=== PATIENT | female | born 1950 | race Caucasian/White ===

== ENCOUNTER 2017-05-19 19:07 | Inpatient (IN) | payer MEDICARE, OTHER ==
[~2017-05-19] VITALS: Ht 172.7 cm; Wt 147.2 kg
[2017-05-19 19:17] VITALS: PULSE 141; RESP 20; TEMP 98.7; O2SAT 93
[2017-05-19 19:26] VITALS: BP 145/75; PULSE 147; RESP 20; O2SAT 92
[2017-05-19] MEDS ORDERED: HUMALOG SQ (19:38)
[2017-05-19] MEDS ORDERED: POTA10CA PO (19:38)
[2017-05-19] MEDS ORDERED: METO25TA3 PO (19:38)
[2017-05-19] MEDS ORDERED: SYMB160A INH (19:38)
[2017-05-19] MEDS ORDERED: SIMV40TA PO (19:38)
[2017-05-19] MEDS ORDERED: OXYC1TAB63 PO (19:38)
[2017-05-19] MEDS ORDERED: GABA100C4 PO (19:38)
[2017-05-19] MEDS ORDERED: FERR325T18 PO (19:38)
[2017-05-19] MEDS ORDERED: VENTAER INH (19:38)
[2017-05-19] MEDS ORDERED: WARF-22 PO (19:38)
[2017-05-19] MEDS ORDERED: SERT-132 PO (19:38)
[2017-05-19] MEDS ORDERED: RANI150T PO (19:38)
[2017-05-19] MEDS ORDERED: WARF4TAB51 PO (19:38)
[2017-05-19] MEDS ORDERED: DOCU100T9 PO (19:38)
[2017-05-19] MEDS ORDERED: SERT-129 PO (19:38)
[2017-05-19] MEDS ORDERED: LANTINJ SQ (19:38)
[2017-05-19] MEDS ORDERED: FURO40TA PO (19:38)
[2017-05-19] MEDS ORDERED: DILTIAZEM HCL 25 MG/5 ML VIAL IV PUSH ONE (19:45)
[2017-05-19] MEDS ORDERED: methylPREDNISolone SOD SUCC 125 MG/2 ML VIAL IV PUSH ONE (19:45)
[2017-05-19] MEDS ORDERED: SODIUM CHLORIDE 0.9% FLUSH 10 ML FLUSH IV FLUSH PRN (19:45)
[2017-05-19] MEDS ORDERED: SODIUM CHLORIDE 0.9% FLUSH 10 ML FLUSH IVF PRN (19:45)
--- NOTE | 2017-05-19 19:45 | PD ---
HPI Chief Complaint: Chest Pain Time Seen by Provider: 19:22 Travel History International Travel<30 days: No Contact w/Intl Traveler<30days: No Traveled to known affect area: No History of Present Illness HPI The patient is a 67 year old female who presents to the [facility] emergency department with a history of cough and congestion that began 3 days ago. She reports that the cough has been productive of sputum, however she has not looked at the color. The patient reports having a history of COPD, congestive heart failure, pneumonia, and atrial fibrillation. The patient is currently residing at home and has a primary care physician that comes out to her house to visit her. The patient reports that she also has chronic lymphedema and uses a lymphedema pump for this, however has not been functional and her lower extremity edema has recently increased. She reports having nausea without vomiting or diarrhea. Her last bowel movement was yesterday. She denies having any abdominal pain associated with this, however she does report nausea and decreased p.o. intake. She reports that over the last 3 days the only thing that she has had to eat is a cup of soup and she has been drinking water. She reports that she last checked her blood sugar yesterday, however she does not know what it was. She did not take any of her medications today including her insulin. She denies having any known fevers. She reports that she quit smoking in the 80s. She denies having any chest pain or chest pressure, other than a left lateral chest wall pain since Friday when she had a coughing spell. She reports that the pain only occurs with certain movements. She reports that it is sharp in character. The patient has a history of atrial fibrillation and is normally on metoprolol, however she did not take it today. Upon ambulance services arrival the patient was noted to have a heart rate in the 140s. The patient was noted to have O2 saturations in the upper 80s on room air. The patient was placed on a nonrebreather mask and transported to this facility after IV access was obtained and the patient was given Cardizem 20 mg IV push. The patient on arrival has a heart rate in the 150s. The patient's systolic blood pressures in the 140s. The patient is awake and alert. Otherwise on review of systems, the patient denies having any recent neck pain, urinary symptoms, or neurologic symptoms. She denies having any recent fall or trauma to the left chest wall. [facility] Past Medical History Narrative Medical The patient's past medical history is significant for hypertension, obesity, lymphedema, atrial fibrillation, hyperlipidemia, diabetes mellitus, COPD, congestive heart failure, acid reflux. The patient is chronically anticoagulated on warfarin. Atrial Fibrillation: Yes High Cholesterol: Yes COPD: Yes Diabetes: Yes Patient Takes Glucophage: No Diminished Hearing: Yes Medical other: Yes (lymphedema) Past Surgical History Narrative Surgical The patient's past surgical history is significant for Social History Alcohol Use: No Tobacco Use: No Substance Use: No Allergies-Medications (Allergen,Severity, Reaction): Coded Allergies: No Known Allergies (Unverified , 05/19/17) Reported Meds & Prescriptions Reported Meds & Active Scripts Active Reported Furosemide 40 Mg Tab 40 Mg PO BID Humalog Inj (Insulin Human Lispro) 1,000 Unit/10 Ml Vial 5 Units SQ TIDAC Sertraline (Sertraline HCl) 100 Mg Tab 100 Mg PO DAILY Symbicort Inh (Budesonide/Formoterol Fumarate) 160-4.5 Mcg/Act Aero 1 Puff INH Q12HR Gabapentin 100 Mg Cap 100 Mg PO TID Lantus Solostar Pen Inj (Insulin Glargine) 300 Unit/3 Ml Pen 8 Units SQ Metoprolol Tartrate 25 Mg Tab 25 Mg PO BID Simvastatin 40 Mg Tab 40 Mg PO HS Sertraline (Sertraline HCl) 50 Mg Tab 50 Mg PO DAILY Warfarin 2 Mg Tab 2 Mg PO DAILY Warfarin 10 Mg Tab 10 Mg PO DAILY Ranitidine (Ranitidine HCl) 150 Mg Tab 150 Mg PO BID Potassium Chloride ER (Potassium Chloride) 10 Meq Cap 10 Meq PO DAILY Oxycodone-Acetaminophen 5-325 mg Tab 1 Tab PO Q6H PRN Ventolin Hfa 18 GM Inh (Albuterol Sulfate) 90 Mcg/Act Aer 2 Puff INH Q6H PRN Ferrous Sulfate 325 Mg (65 Mg Iron) Tablet 325 Mg PO DAILY Docusate Sodium 100 Mg Tab 100 Mg PO DAILY Review of Systems General / Constitutional: No: Fever Eyes: No: Visual changes HENT: Positive: Rhinorrhea, Congestion, No: Headaches Cardiovascular: Positive: Chest Pain or Discomfort (Left lateral chest wall pain), Dyspnea on exertion Respiratory: Positive: Cough, Shortness of Breath Gastrointestinal: Positive: Nausea, Loss of Appetite, No: Vomiting, Diarrhea, Abdominal Pain, Changes in Bowel Habits, Indigestion Genitourinary: No: Dysuria Musculoskeletal: No: Pain Skin: No Rash Neurologic: Positive: Weakness (Generalized weakness), No: Focal Abnormalities , Change in Mentation, Slurred Speech, Sensory Disturbance Psychiatric: No: Depression Endocrine: No: Polydipsia Hematologic/Lymphatic: No: Easy Bruising Physical Exam Narrative General: The patient is a well-developed well-nourished female, short of breath on arrival, otherwise in no acute distress. The patient is able to speak in complete sentences. Patient's O2 saturation on nasal cannula currently is 93%. Head and Neck exam: Head is normocephalic atraumatic. Eyes: EOMI, pupils are equal round and reactive to light. Nose: Midline septum with pink mucous membranes Mouth: Dentition unremarkable. Moist mucus membranes. Posterior oropharynx is not erythematous. No tonsillar hypertrophy. Uvula midline. Airway patent. Neck: No palpable lymphadenopathy. No nuchal rigidity. No thyromegaly. Cardiovascular: Irregularly irregular with a rate in the 140s without murmurs, gallops, or rubs. No pulse deficit to the extremities on simultaneous auscultation and palpation of her radial artery. Lungs: Soft expiratory wheezes are audible throughout bilateral lung peralta, scattered rhonchi that clear with coughing. The patient has tenderness on palpation of the left lateral lower chest wall without any crepitus. No erythema or ecchymosis. No flail segment. Abdomen: Soft, without tenderness to palpation in all 4 quadrants of the abdomen. No guarding, rebound, or rigidity. Normal bowel sounds are audible. No tenderness on palpation of McBurney's point. Negative Hubbard sign. Extremities: No clubbing or cyanosis. The patient has 1+ pitting edema bilateral lower extremities. Patient reports a history of chronic lymphedema. 2+ pulses in all 4 extremities. No calf tenderness on palpation. Back: No costovertebral angle tenderness to palpation. Neurologic Exam: Grossly nonfocal. Skin Exam: No rash noted. Intact skin that is warm and dry. Data Data Last Documented VS Vital Signs Date Time Temp Pulse Resp B/P (MAP) Pulse Ox O2 Delivery O2 Flow Rate FiO2 05/19/17 22:49 165 141/61 05/19/17 22:24 22 90 Nasal Cannula 4.00 05/19/17 19:17 98.7 Orders Orders Electrocardiogram (05/19/17 19:41) Complete Blood Count With Diff (05/19/17 19:41) Comprehensive Metabolic Panel (05/19/17 19:41) Creatine Kinase (Cpk) (05/19/17 19:41) Ckmb (Isoenzyme) Profile (05/19/17 19:41) Troponin I (05/19/17:41) B-Type Natriuretic Peptide (05/19/17:41) Prothrombin Time / Inr (Pt) (05/19/17 19:41) Act Partial Throm Time (Ptt) (05/19/17 19:41) Blood Culture (05/19/17:41) Lipase (05/19/17:41) Urinalysis - C+S If Indicated (05/19/17:41) Magnesium (Mg) (05/19/17 19:41) Thyroid Stimulating Hormone (05/19/17 19:41) Chest, Single Ap (05/19/17:41) Iv Access Insert/Monitor (05/19/17 19:41) Ecg Monitoring (05/19/17 19:41) Oximetry (05/19/17 19:41) Lactic Acid Sepsis Protocol (05/19/17 19:41) Sodium Chloride 0.9% Flush (Ns Flush) (05/19/17 19:45) Methylprednisolone So Succ Inj (Solumedr (05/19/17 19:45) Albuterol-Ipratropium Neb (Duoneb Neb) (05/19/17 19:45) Blood Pressure (05/19/17 19:41) Diltiazem Inj (Cardizem Inj) (05/19/17 19:45) Diltiazem Inj (Cardizem Inj) (05/19/17 19:45) Sodium Chloride 0.9% Flush (Ns Flush) (05/19/17 19:45) Beta Hydroxybutyrate (Acetone) (05/19/17 19:45) Blood Glucose (05/19/17 19:45) Ceftriaxone Inj (Rocephin Inj) (05/19/17 20:45) Azithromycin Inj (Zithromax Inj) (05/19/17 20:45) Morphine Inj (Morphine Inj) (05/19/17 21:45) Ondansetron Inj (Zofran Inj) (05/19/17 21:45) Sodium Chlorid 0.9% 500 Ml Inj (Ns 500 M (05/19/17 22:00) Diltiazem Inj (Cardizem Inj) (05/19/17 23:00) Sodium Chlorid 0.9% 500 Ml Inj (Ns 500 M (05/19/17 23:00) Admit Order (Ed Use Only) (05/19/17 23:27) Admit Order (Ed Use Only) (05/19/17 23:31) Labs Laboratory Tests Test 05/19/17 19:50 05/19/17 19:55 White Blood Count 14.9 TH/MM3 Red Blood Count 4.90 MIL/MM3 Hemoglobin 12.2 GM/DL Hematocrit 37.4 % Mean Corpuscular Volume 76.3 FL Mean Corpuscular Hemoglobin 25.0 PG Mean Corpuscular Hemoglobin Concent 32.7 % Red Cell Distribution Width 18.7 % Platelet Count 125 TH/MM3 Mean Platelet Volume 9.8 FL Neutrophils (%) (Auto) 93.3 % Lymphocytes (%) (Auto) 3.0 % Monocytes (%) (Auto) 3.5 % Eosinophils (%) (Auto) 0.1 % Basophils (%) (Auto) 0.1 % Neutrophils # (Auto) 13.9 TH/MM3 Lymphocytes # (Auto) 0.4 TH/MM3 Monocytes # (Auto) 0.5 TH/MM3 Eosinophils # (Auto) 0.0 TH/MM3 Basophils # (Auto) 0.0 TH/MM3 CBC Comment AUTO DIFF Differential Total Cells Counted 100 Neutrophils % (Manual) 86 % Band Neutrophils % 12 % Monocytes % 2 % Neutrophils # (Manual) 14.6 TH/MM3 Differential Comment FINAL DIFF MANUAL Dohle Bodies PRESENT Platelet Estimate LOW Platelet Morphology Comment ENLARGED Prothrombin Time 19.4 SEC Prothromb Time International Ratio 1.9 RATIO Activated Partial Thromboplast Time 45.5 SEC Blood Urea Nitrogen 39 MG/DL Creatinine 1.09 MG/DL Random Glucose 173 MG/DL Total Protein 7.8 GM/DL Albumin 3.1 GM/DL Calcium Level 9.6 MG/DL Magnesium Level 1.8 MG/DL Alkaline Phosphatase 99 U/L Aspartate Amino Transf (AST/SGOT) 7 U/L Alanine Aminotransferase (ALT/SGPT) 12 U/L Total Bilirubin 1.0 MG/DL Sodium Level 135 MEQ/L Potassium Level 3.8 MEQ/L Chloride Level 98 MEQ/L Carbon Dioxide Level 26.1 MEQ/L Anion Gap 11 MEQ/L Estimat Glomerular Filtration Rate 50 ML/MIN Total Creatine Kinase 45 U/L Troponin I LESS THAN 0.02 NG/ML B-Type Natriuretic Peptide 35 PG/ML Lipase 46 U/L Thyroid Stimulating Hormone 3rd Gen 1.350 uIU/ML B-Hydroxybutyrate 1.17 MMOL/L Lactic Acid Level 1.8 mmol/L [facility] Medical Decision Making Medical Screen Exam Complete: Yes Emergency Medical Condition: Yes Medical Record Reviewed: Yes Interpretation(s) Last Impressions Chest X-Ray 05/19/171940 Signed Impressions: Service Date/Time: Friday, May 19, 2017 19:45 - CONCLUSION: Left lower lobe partially consolidative infiltrate and probable associated pleural effusion. Angel Hill MD Differential Diagnosis A. fib with RVR causing pulmonary edema, versus congestive heart failure exacerbation, versus pneumonia, versus COPD exacerbation, versus acute coronary syndrome, versus pulmonary embolism Narrative Course During the course of the patient's emergency department visit, the patient's history, examination, and differential diagnosis were reviewed with the patient. The patient was placed on a regulator tester with oximetry and frequent blood pressure monitoring. The patient had IV access obtained and blood work sent for analysis. The patient will have an EKG done. The chest x-ray has been ordered. An EKG was done that shows atrial fibrillation with RVR with a heart rate of 147, QTC is 313 ms, QT QRS duration is [address] segment elevation. The patient has occasional premature ventricular complexes noted. The patient was initially provided Cardizem 20 mg IV bolus followed by Cardizem drip. The patient will be given duo nebs 3, Solu-Medrol 125 mg IV. The patient's laboratory studies were reviewed and remarkable for a white count of 14.9, hemoglobin 12.2, platelets 125 with 86 neutrophils, bands 12, monocytes 2, CMP is remarkable for sodium of 135, the BUN 39, creatinine 1.09, glucose 173, AST 7, lipase 46, cardiac enzymes within normal limits, BNP 35, lactic acid 1.8. The patient was given a fluid bolus of normal saline. Radiology studies were reviewed and remarkable for a chest x-ray revealed a left lower lobe consolidated infiltrate. The patient was given Rocephin 1 g IV , Zithromax 500 IV. The patient was given morphine for pain, Zofran for nausea. The patient persistently had A. fib with RVR and was given another bolus of Cardizem 25 mg IV, Cardizem drip was titrated up. The patient's results were discussed with the patient, including the plan of care. I explained that further testing and/ or monitoring is indicated based on the patient's history, examination, and/ or laboratory findings. Therefore, I recommended admission for additional evaluation. The patient expressed understanding and was agreeable with this plan. The patient was admitted to the hospital in guarded condition and [facility] Physician Communication Physician Communication The patient's case including history, pertinent physical examination findings, and laboratory studies were discussed with Dr. Hernandez. It was agreed that the patient would be admitted to the [facility] service. Diagnosis Primary Impression: Shortness of breath Additional Impressions: Atrial fibrillation with RVR Pneumonia Qualified Codes: J18.1 - Lobar pneumonia, unspecified organism Admitting Information Admitting Physician Requests: Admit Nicol Baum MD May 19, 2017 19:45
--- NOTE | 2017-05-19 20:17 | RADRPT ---
EXAM DATE/TIME: 05/19/2017 19:45 [place] COMPARISON: No previous studies available for comparison. INDICATIONS : Shortness of breath. MEDICAL HISTORY : Chronic obstructive pulmonary disease. Diabetes mellitus type II. Afib. SURGICAL HISTORY : None. ENCOUNTER: Initial ACUITY: 1 day PAIN SCORE: 0/10 LOCATION: Bilateral chest FINDINGS: Patchy and partially consolidative infiltrates are present in the left mid and lower lung with loss o f delineation of a portion of the apical heart border and left hemidiaphragm. Possible meniscal inte rface laterally. The right lung is clear. The heart is mildly enlarged. CONCLUSION: Left lower lobe partially consolidative infiltrate and probable associated pleural effusion. Angel Hill MD on May 19, 2017 at 20:15 Board Certified Radiologist. This report was verified electronically.
[2017-05-19] MEDS ORDERED: AZITHROMYCIN INJ 500 MG in SODIUM CHLOR 0.9% 250 ML INJ 250 ML IV ONE (20:45)
[2017-05-19] MEDS ORDERED: cefTRIAXone INJ 1,000 MG in SODIUM CHLORIDE 0.9% INJ 100 ML IV ONE (20:45)
[2017-05-19 20:49] LABS: AUTOMATED NEUTROPHIL # 13.9 TH/MM3 (1.8-7.7); BASOPHIL % 0.1 % (0.0-2.0); EOSINOPHIL % 0.1 % (0.0-4.0); HEMATOCRIT 37.4 % (35.0-46.0); HEMOGLOBIN 12.2 GM/DL (11.6-15.3); LYMPHOCYTE # 0.4 TH/MM3 (1.0-4.8); MEAN CELL VOLUME 76.3 FL (80.0-100.0); MEAN CORPUSCULAR HGB CONC 32.7 % (32.0-36.0); MEAN PLATELET VOLUME 9.8 FL (7.0-11.0); MONO % 3.5 % (0.0-8.0); MONOCYTE # 0.5 TH/MM3 (0-0.9); NEUT % 93.3 % (16.0-70.0); PLATELET COUNT 125 TH/MM3 (150-450); RED CELL DISTRIBUTION WIDTH 18.7 % (11.6-17.2); WHITE BLOOD COUNT 14.9 TH/MM3 (4.0-11.0)
[2017-05-19 21:14] LABS: ALBUMIN 3.1 GM/DL (3.4-5.0); AST (GOT) 7 U/L (15-37); BICARBONATE 26.1 MEQ/L (21.0-32.0); BLOOD UREA NITROGEN 39 MG/DL (7-18); CALCIUM 9.6 MG/DL (8.5-10.1); CHLORIDE 98 MEQ/L (98-107); CREATININE 1.09 MG/DL (0.50-1.00); GLOMERULAR FILTRATION RATE 50 ML/MIN (>89); GLUCOSE,RANDOM 173 MG/DL (74-106); MAGNESIUM 1.8 MG/DL (1.5-2.5); SODIUM (NA) 135 MEQ/L (136-145)
[2017-05-19 21:15] LABS: ALT (GPT) 12 U/L (10-53)
[2017-05-19 21:20] LABS: INTERNATIONAL NORMALIZED RATIO 1.9 RATIO; PROTHROMBIN TIME - PATIENT 19.4 SEC (9.8-11.6)
[2017-05-19 21:25] LABS: ALKALINE PHOSPHATASE 99 U/L (45-117); TOTAL PROTEIN 7.8 GM/DL (6.4-8.2); TROPONIN I LESS THAN 0.02 NG/ML (0.02-0.05)
[2017-05-19] MEDS: RESP: ALBUTEROL 2.5 MG/IPRATROPIUM 0.5 MG NEB (SCH) INH ×2 (21:34→21:35)
[2017-05-19 21:38] LABS: BANDS 12 % (0-6); MONOCYTES 2 % (0-8); NEUTROPHIL # MANUAL DIFF 14.6 TH/MM3 (1.8-7.7); POLYS (SEG NEUTROPHILS) 86 % (16-70)
[2017-05-19 21:39] VITALS: O2SAT 94
[2017-05-19 21:44] LABS: DOHLE BODIES PRESENT (NONE SEEN)
[2017-05-19] MEDS ORDERED: MORPHINE SULFATE 4 MG/ML INJ IV PUSH ONE (21:45)
[2017-05-19] MEDS ORDERED: ONDANSETRON HCL 4 MG/2 ML VIAL IV PUSH ONE (21:45)
[2017-05-19] MEDS ORDERED: SODIUM CHLORID 0.9% 500 ML INJ 500 ML IV ONE ×2 (22:00→23:00)
[2017-05-19 22:24] VITALS: BP 141/61; PULSE 147; RESP 22; O2SAT 90
[2017-05-19] MEDS: DILTIAZEM INJ 125 MG in SODIUM CHLORIDE 0.9% INJ 100 ML IV PRN (22:49)
[2017-05-19] MEDS ORDERED: DILTIAZEM HCL 25 MG/5 ML VIAL IV ONE (23:00)
[2017-05-20] VITALS (12 sets, daily range): BP systolic 109–163; BP diastolic 57–87; PULSE 80–145; RESP 14–29; TEMP 97.4–97.6; O2SAT 90–98
[2017-05-20] MEDS ORDERED: ONDANSETRON HCL 4 MG/2 ML VIAL IVP PRN (01:45)
[2017-05-20] MEDS ORDERED: SODIUM CHLORIDE 0.9% FLUSH 10 ML FLUSH IV FLUSH PRN (01:45)
[2017-05-20] MEDS ORDERED: ACETAMINOPHEN 325 MG TAB PO PRN (01:45)
[2017-05-20] MEDS ORDERED: RESP: ALBUTEROL 2.5 MG/IPRATROPIUM 0.5 MG NEB (PRN) NEB (01:45)
[2017-05-20] MEDS ORDERED: SENNOSIDES 8.6 MG TAB PO PRN (01:45)
[2017-05-20] MEDS ORDERED: BISACODYL 10 MG SUPP RECTAL PRN (01:45)
[2017-05-20] MEDS ORDERED: MAGNESIUM HYDROXIDE SUSP 30 ML CUP PO PRN (01:45)
[2017-05-20] MEDS ORDERED: DEXTROSE 50% IN WATER 50 ML VIAL(D50) IV PUSH PRN (01:45)
[2017-05-20] MEDS ORDERED: GLUCAGON 1 MG/ML VIAL OTHER PRN (01:45)
[2017-05-20] MEDS ORDERED: oxyCODONE/ACETAMINOPHEN 5 MG/325 MG TAB PO PRN (01:45)
[2017-05-20] MEDS ORDERED: LACTULOSE SYRUP 20 GM/30 ML CUP PO PRN (01:45)
[2017-05-20] MEDS ORDERED: NALOXONE HCL 0.4 MG/ML AMP IV PUSH PRN (01:45)
[2017-05-20] MEDS: HEPARIN SODIUM - SQ 10,000 UNITS/ML VIAL SQ SCH ×3 (02:38→17:49)
[2017-05-20] MEDS: DILTIAZEM INJ 125 MG in SODIUM CHLORIDE 0.9% INJ 100 ML IV PRN ×2 (07:29→15:32)
[2017-05-20] MEDS: INSULIN ASPART SUPPLEMENTAL SCALE SQ SCH ×4 (08:18→20:59)
[2017-05-20] MEDS: SODIUM CHLORIDE 0.9% FLUSH 10 ML FLUSH IV FLUSH SCH ×2 (09:00→20:45)
[2017-05-20] MEDS: DOCUSATE SODIUM 50 MG/SENNA 8.6 MG TAB PO SCH ×2 (09:00→20:45)
[2017-05-20 09:25] LABS: BASOPHIL % 0.2 % (0.0-2.0); HEMATOCRIT 36.5 % (35.0-46.0); HEMOGLOBIN 11.9 GM/DL (11.6-15.3); LYMPH % 1.9 % (9.0-44.0); LYMPHOCYTE # 0.3 TH/MM3 (1.0-4.8); MEAN CELL VOLUME 76.6 FL (80.0-100.0); MEAN CORPUSCULAR HEMOGLOBIN 25.1 PG (27.0-34.0); MEAN CORPUSCULAR HGB CONC 32.7 % (32.0-36.0); MEAN PLATELET VOLUME 9.7 FL (7.0-11.0); MONO % 2.3 % (0.0-8.0); MONOCYTE # 0.4 TH/MM3 (0-0.9); NEUT % 95.6 % (16.0-70.0); PLATELET COUNT 122 TH/MM3 (150-450); RED BLOOD COUNT 4.76 MIL/MM3 (4.00-5.30); RED CELL DISTRIBUTION WIDTH 19.1 % (11.6-17.2); WHITE BLOOD COUNT 15.7 TH/MM3 (4.0-11.0)
[2017-05-20] MEDS ORDERED: SODIUM CHLORID 0.9% 500 ML INJ 500 ML IV ONE (09:30)
[2017-05-20] MEDS: BUDESONIDE-FORMOTEROL 160/4.5 MCG INHALER INH SCH ×2 (09:35→20:46)
[2017-05-20] MEDS: FUROSEMIDE 40 MG TAB PO SCH ×2 (09:35→20:45)
[2017-05-20] MEDS: methylPREDNISolone SOD SUCC 125 MG/2 ML VIAL IV PUSH SCH ×2 (09:35→20:45)
[2017-05-20] MEDS: SERTRALINE HCL 50 MG TAB PO SCH (09:35)
[2017-05-20] MEDS: SERTRALINE HCL 100 MG TAB PO SCH (09:35)
[2017-05-20] MEDS: GABAPENTIN 100 MG CAP PO SCH ×3 (09:36→17:34)
[2017-05-20] MEDS: METOPROLOL TARTRATE 25 MG TAB PO SCH ×2 (09:36→20:45)
--- NOTE | 2017-05-20 09:36 | HHI.HP ---
[facility] Service [facility] Primary Care Physician No Primary Care Physician Admission Diagnosis Afib with RVR, Pneumonia, COPD exacerbation Diagnoses: (1) COPD exacerbation (2) Diabetes mellitus (3) Chronic systolic CHF (congestive heart failure) (4) Hypertension (5) Hyperlipidemia (6) Atrial fibrillation with RVR (7) Pneumonia (8) Shortness of breath (9) Sepsis (10) Acute kidney injury Chief Complaint: Dyspnea Travel History International Travel<30 Days: No Contact w/Intl Traveler <30 Da: No Traveled to Known Affected Are: No Sepsis Criteria SIRS Criteria (2 or more): Heart rate over 90, RR > 20 or PaCO2 < 32, WBC > 94248, < 4000 or > 10% bands Sepsis Criteria (SIRS+source): Infect source susp/known Criteria Outcome: Meets sepsis criteria History of Present Illness Extent 7-year-old female who presented to the emergency department with complaint of pain on her left side. She also reports shortness of breath, cough , congestion. Symptoms started about 4 days ago. Cough is productive of sputum. Patient states that she recently moved to the area from [place] and has not established with a hot tar roofer helper or horn player. She reports history of atrial fibrillation, congestive heart failure, COPD. She does feel a little better this morning than she did overnight. Per nursing, patient was quite confused earlier this morning, but is much more alert now. Review of Systems Constitutional: DENIES: Fever, Chills, Night Sweats Eyes: DENIES: Blurred vision, Vision loss Ears, nose, mouth, throat: DENIES: Hearing loss Respiratory: COMPLAINS OF: Cough, Wheezing, Sputum production, Shortness of breath Cardiovascular: COMPLAINS OF: Dyspnea on Exertion, Lower Extremity Edema, DENIES: Chest pain, Palpitations Gastrointestinal: DENIES: Abdominal pain, Constipation, Diarrhea, Nausea, Vomiting Genitourinary: DENIES: Urinary frequency, Urinary incontinence, Urgency, Hematuria, Dysuria, Nocturia Musculoskeletal: DENIES: Joint pain, Muscle aches Integumentary: DENIES: Pruritus, Rash Hematologic/lymphatic: DENIES: Bruising Neurologic: DENIES: Headache Past Family Social History Past Medical History Hypertension Hyperlipidemia Atrial fibrillation Diabetes mellitus COPD Asthma Congestive heart failure GERD Past Surgical History Hysterectomy Reported Medications Furosemide 40 Mg Tab 40 Mg PO BID Humalog Inj (Insulin Human Lispro) 1,000 Unit/10 Ml Vial 5 Units SQ TIDAC Sertraline (Sertraline HCl) 100 Mg Tab 100 Mg PO DAILY Symbicort Inh (Budesonide/Formoterol Fumarate) 160-4.5 Mcg/Act Aero 1 Puff INH Q12HR Gabapentin 100 Mg Cap 100 Mg PO TID Lantus Solostar Pen Inj (Insulin Glargine) 300 Unit/3 Ml Pen 8 Units SQ Metoprolol Tartrate 25 Mg Tab 25 Mg PO BID Simvastatin 40 Mg Tab 40 Mg PO HS Sertraline (Sertraline HCl) 50 Mg Tab 50 Mg PO DAILY Warfarin 2 Mg Tab 2 Mg PO DAILY Warfarin 10 Mg Tab 10 Mg PO DAILY Ranitidine (Ranitidine HCl) 150 Mg Tab 150 Mg PO BID Potassium Chloride ER (Potassium Chloride) 10 Meq Cap 10 Meq PO DAILY Oxycodone-Acetaminophen 5-325 mg Tab 1 Tab PO Q6H PRN Ventolin Hfa 18 GM Inh (Albuterol Sulfate) 90 Mcg/Act Aer 2 Puff INH Q6H PRN Ferrous Sulfate 325 Mg (65 Mg Iron) Tablet 325 Mg PO DAILY Docusate Sodium 100 Mg Tab 100 Mg PO DAILY Allergies: Coded Allergies: No Known Allergies (Unverified , 05/19/17) Family History Heart disease COPD Social History The patient quit smoking in 1983. Denies alcohol or illicit drug use. Physical Exam Vital Signs Vital Signs Date Time Temp Pulse Resp B/P (MAP) Pulse Ox O2 Delivery O2 Flow Rate FiO2 05/20/17 07:29 108 136/70 05/20/17 07:00 110 22 136/70 (92) 96 Partial Rebreather 11.00 05/20/17 04:19 127 20 163/75 (104) 96 Non-Rebreather 15.00 05/20/17 00:47 145 22 128/65 (86) 90 Nasal Cannula 4.00 05/20/17 00:38 134 20 128/65 (86) 90 Nasal Cannula 4.00 05/19/17 22:49 165 141/61 05/19/17 22:24 147 22 141/61 (87) 90 Nasal Cannula 4.00 05/19/17 21:39 94 Nasal Cannula 4.00 05/19/17 19:38 92 Nasal Cannula 2.00 05/19/17 19:26 147 20 145/75 (98) 92 Nasal Cannula 4.00 05/19/17 19:17 98.7 141 20 93 Physical Exam GENERAL: Morbidly obese female on a nonrebreather. HEENT: Normocephalic, atraumatic. Pupils equal, round and reactive. Extraocular movements intact. No scleral icterus. No injection or drainage. Oropharynx is clear. Mucous membranes are somewhat dry. CARDIOVASCULAR: Tachycardic, irregular. RESPIRATORY: Scattered wheeze. Decreased breath sounds in the left lower lung field. Breathing is somewhat labored. GASTROINTESTINAL: Abdomen soft, non-tender, nondistended. EXTREMITIES: Bilateral lower extremity edema with venous stasis changes. No calf tenderness. PSYCH: Alert and oriented x 3. Laboratory Laboratory Tests Test 05/19/17 19:50 05/19/17 19:55 05/20/17 09:07 05/20/17 09:11 White Blood Count 14.9 Red Blood Count 4.90 Hemoglobin 12.2 Hematocrit 37.4 Mean Corpuscular Volume 76.3 Mean Corpuscular Hemoglobin 25.0 Mean Corpuscular Hemoglobin Concent 32.7 Red Cell Distribution Width 18.7 Platelet Count 125 Mean Platelet Volume 9.8 Neutrophils (%) (Auto) 93.3 Lymphocytes (%) (Auto) 3.0 Monocytes (%) (Auto) 3.5 Eosinophils (%) (Auto) 0.1 Basophils (%) (Auto) 0.1 Neutrophils # (Auto) 13.9 Lymphocytes # (Auto) 0.4 Monocytes # (Auto) 0.5 Eosinophils # (Auto) 0.0 Basophils # (Auto) 0.0 CBC Comment AUTO DIFF Differential Total Cells Counted 100 Neutrophils % (Manual) 86 Band Neutrophils % 12 Monocytes % 2 Neutrophils # (Manual) 14.6 Differential Comment FINAL DIFF MANUAL Dohle Bodies PRESENT Platelet Estimate LOW Platelet Morphology Comment ENLARGED Prothrombin Time 19.4 Prothromb Time International Ratio 1.9 Activated Partial Thromboplast Time 45.5 Blood Urea Nitrogen 39 Creatinine 1.09 Random Glucose 173 Total Protein 7.8 Albumin 3.1 Calcium Level 9.6 Magnesium Level 1.8 Alkaline Phosphatase 99 Aspartate Amino Transf (AST/SGOT) 7 Alanine Aminotransferase (ALT/SGPT) 12 Total Bilirubin 1.0 Sodium Level 135 Potassium Level 3.8 Chloride Level 98 Carbon Dioxide Level 26.1 Anion Gap 11 Estimat Glomerular Filtration Rate 50 Total Creatine Kinase 45 Troponin I LESS THAN 0.02 B-Type Natriuretic Peptide 35 Lipase 46 Thyroid Stimulating Hormone 3rd Gen 1.350 B-Hydroxybutyrate 1.17 Lactic Acid Level 1.8 Blood Gas Puncture Site RT RADIAL Blood Gas Patient Temperature 98.6 Blood Gas HCO3 26 Blood Gas Base Excess 0.7 Blood Gas Oxygen Saturation 94 Arterial Blood pH 7.34 Arterial Blood Partial Pressure CO2 50 Arterial Blood Partial Pressure O2 81 Arterial Blood Oxygen Content 15.8 Arterial Blood Carboxyhemoglobin 1.0 Arterial Blood Methemoglobin 0.7 Blood Gas Hemoglobin 11.9 Oxygen Delivery Device PNRB Blood Gas Liter Flow 15 Date/Time Source Procedure Growth Status 05/19/17 19:55 Blood Peripheral Aerobic Blood Culture Pending Received 05/19/17 19:55 Blood Peripheral Anaerobic Blood Culture Pending Received Result Diagram: 05/19/17194905/19/171949 Imaging Last Impressions Chest X-Ray 05/19/171940 Signed Impressions: Service Date/Time: Friday, May 19, 2017 19:45 - CONCLUSION: Left lower lobe partially consolidative infiltrate and probable associated pleural effusion. Angel Hill MD Capbreannei VTE Risk Assessment Caprini VTE Risk Assessment: Mod/High Risk (score >= 2) Caprini Risk Assessment Model Point Value = 1 Point Value = 2 Point Value = 3 Point Value = 5 Age 41-60 Minor surgery BMI > 25 kg/m2 Swollen legs Varicose veins or History of unexplained or recurrent spontaneous Oral contraceptives or hormone replacement Sepsis (< 1 month) Serious lung disease, including pneumonia (< 1 month) Abnormal pulmonary function Acute myocardial infarction Congestive heart failure (< 1 month) History of inflammatory bowel disease Medical patient at bed rest Age 61-74 Arthroscopic surgery Major open surgery (> 45 min) Laparoscopic surgery (> 45 min) Malignancy Confined to bed (> 72 hours) Immobilizing plaster cast Central venous access Age >= 75 History of VTE Family history of VTE Factor V Leiden Prothrombin [id number] Lupus anticoagulant Anticardiolipin antibodies Elevated serum homocysteine Heparin-induced thrombocytopenia Other congenital or acquired thrombophilia Stroke (< 1 month) Elective arthroplasty Hip, pelvis, or leg fracture Acute spinal cord injury (< 1 month) Prophylaxis Regimen Total Risk Factor Score Risk Level Prophylaxis Regimen 0-1 Low Early ambulation 2 Moderate Order ONE of the following: *Sequential Compression Device (SCD) *Heparin 5000 units SQ BID 3-4 Higher Order ONE of the following medications: *Heparin 5000 units SQ TID *Enoxaparin/Lovenox 40 mg SQ daily (WT < 150 kg, CrCl > 30 mL/min) *Enoxaparin/Lovenox 30 mg SQ daily (WT < 150 kg, CrCl > 10-29 mL/min) *Enoxaparin/Lovenox 30 mg SQ BID (WT < 150 kg, CrCl > 30 mL/min) AND/OR *Sequential Compression Device (SCD) 5 or more Highest Order ONE of the following medications: *Heparin 5000 units SQ TID (Preferred with Epidurals) *Enoxaparin/Lovenox 40 mg SQ daily (WT < 150 kg, CrCl > 30 mL/min) *Enoxaparin/Lovenox 30 mg SQ daily (WT < 150 kg, CrCl > 10-29 mL/min) *Enoxaparin/Lovenox 30 mg SQ BID (WT < 150 kg, CrCl > 30 mL/min) AND *Sequential Compression Device (SCD) Assessment and Plan Assessment and Plan 1. Atrial fibrillation with RVR: Currently on diltiazem drip. Rate still 100- 110. Continue Coumadin. Cardiology consult requested. 2. Pneumonia: Continue antibiotics. Continue supplemental oxygen. 3. COPD exacerbation with acute respiratory failure: Continue supplemental oxygen, bronchodilators, steroids. Pulmonology consultation. 4. Chronic systolic congestive heart failure: Continue Lasix. Check 2D echocardiogram. Cardiology consult. Monitor strict intake/output. 5. Diabetes mellitus: Monitor Accu-Cheks and cover with sliding scale insulin. 6. Hyperlipidemia: Continue statin. 7. Acute kidney injury: Labs are pending this morning. Monitor BUN and creatinine. Patient has had decreased urine output this morning. Will give a bolus of normal saline, using caution due to history of congestive heart failure. 8. DVT prophylaxis: Coumadin. Code Status FULL CODE Problem Qualifiers (1) Pneumonia: Qualified Codes: J18.1 - Lobar pneumonia, unspecified organism Chapin Greene MD May 20, 2017 09:36
[2017-05-20 09:44] LABS: BICARBONATE 25.5 MEQ/L (21.0-32.0); CREATININE 0.97 MG/DL (0.50-1.00)
[2017-05-20] MEDS: POTASSIUM CHLORIDE 10 MEQ CAP PO SCH (10:20)
--- NOTE | 2017-05-20 15:19 | MB ---
cc: Bong Tinsley DO DATE OF CONSULT: 05/20/2017 REASON FOR CONSULTATION: Atrial fibrillation with rapid ventricular response. HISTORY OF PRESENT ILLNESS: Corin Sheppard is a pleasant 67-year-old female who presented to [facility] emergency room on 05/19/2017 due to cough and shortness of breath. She states that this all started around 3 days ago. Cough has been productive of sputum; however, she has not looked at the color of her sputum. Her shortness of breath has been constant and not really further increased by lying down or sitting up. Apparently she just moved here from [place] and has not found a marketing agent or practice specialist at this time. She resides at home and her primary care physician comes out to her house to visit her. She has not been very functional at home due to her lower extremity edema which has recently increased. She has known chronic lymphedema and uses a lymphedema pump for this. On arrival, she was found to have heart rates in the 140s and given a Cardizem bolus as well as a Cardizem IV drip. In seeing her this morning, she has no chest pain or palpitations. Her shortness of breath is chronic, but not worse than it was before. PAST MEDICAL HISTORY: 1. Hypertension. 2. Hyperlipidemia. 3. Atrial fibrillation. 4. Diabetes mellitus. 5. COPD. 6. Asthma. 7. Congestive heart failure. 8. GERD. 9. Lymphedema, chronic. PAST SURGICAL HISTORY: Hysterectomy. MEDICATIONS: 1. Albuterol every 6 hours as needed for shortness of breath. 2. Iron 325 mg daily. 3. Coumadin 12 mg daily. 4. Zocor 40 mg every night. 5. Metoprolol tartrate 25 mg b.i.d. 6. Oxycodone/acetaminophen 5/325 every 6 hours as needed for pain. 7. Gabapentin 100 mg t.i.d. 8. Zoloft 150 mg daily. 9. Potassium 10 mEq daily. 10. Lasix 40 mg b.i.d. 11. Symbicort 1 puff every 12 hours. 12. Docusate 100 mg daily. 13. Ranitidine 150 mg b.i.d. 14. Lantus 8 units daily. 15. Humalog 5 units with meals. FAMILY HISTORY: Denies premature coronary artery disease or sudden cardiac deaths within the family. SOCIAL HISTORY: Patient previously smoked, but quit in 1983. Denies illicit drug abuse or alcohol. REVIEW OF SYSTEMS: Fourteen systems were reviewed including osteopathic. Pertinent positives and negatives as above. Otherwise negative. PHYSICAL EXAMINATION: VITAL SIGNS: Temp 98.7, heart rate 80, respirations 18, blood pressure 109/57, pulse ox 95% on 11 L. GENERAL: The patient is a morbidly obese female, alert, awake and oriented x 3. No acute distress. HEENT: Extraocular muscles intact. Mucous membranes moist. NECK: Supple. No JVD at 45 degrees. No carotid bruits heard bilaterally. Carotid upstroke is brisk in nature. HEART: Irregularly irregular. Positive first and second heart sounds with no noted murmurs, gallops, or rubs. LUNGS: Have decreased breathing bilaterally with scattered wheezes noted. Minimal rales are noted. ABDOMEN: Soft, nontender, nondistended. No organomegaly noted. EXTREMITIES: Show bilateral pitting edema with venous stasis changes. SKIN: Warm, dry, and intact. NEUROLOGIC: No focal deficits. OSTEOPATHIC: Moderate lordosis. No kyphoscoliosis or paraspinal tender points. LABORATORY STUDIES: Hemoglobin 11.9, hematocrit 36.5, platelets 122. INR 1.9. Potassium 4.1, BUN 40, creatinine 0.97. Troponin less than 0.02. BNP 35. ELECTROCARDIOGRAM: 05/19/2017 at 1936: Atrial fibrillation with rapid ventricular response, nonspecific ST-T wave changes. IMPRESSIONS: 1. Atrial fibrillation with rapid ventricular response. 2. Mildly subtherapeutic coagulopathy on Coumadin. 3. Pneumonia. 4. Chronic obstructive pulmonary disease exacerbation with acute respiratory failure. 5. Chronic heart failure, unsure at this time of systolic versus diastolic. 6. Diabetes mellitus. 7. Hyperlipidemia. 8. Morbid obesity. RECOMMENDATIONS: 1. Ms. Sheppard presented with atrial fibrillation with rapid ventricular response which may be due to increased sympathetics due to her overall lung status as well as possible pneumonia. 2. She has since been controlled on a Cardizem drip and we will plan on changing this over to Cardizem p.o. 3. She will continue on her Coumadin therapy and she will need to have this followed in the outpatient by her primary care physician. 4. We will plan on checking a 2-D echo to look at her overall left ventricular function, cardiac structure, and possible valvulopathies. 5. Treatment for pneumonia per the primary care team. 6. Further recommendations will be made based on the hospital course. Thank you for allowing me to see Corin Sheppard. If there are any questions, please do not hesitate to call. Bong Tinsley DO VGP/TI , 02:57 PM , 03:17 PM
[2017-05-20] MEDS: DILTIAZEM HCL 60 MG TAB PO SCH ×2 (16:29→16:54)
[2017-05-20] MEDS: WARFARIN SOD 2 MG TAB PO SCH (16:29)
[2017-05-20] MEDS: WARFARIN SOD 10 MG TAB PO SCH (16:29)
--- NOTE | 2017-05-20 17:34 | ECHRPT ---
Indication: HEART FAILURE CONCLUSIONS Mildly dilated left ventricle. The left ventricular systolic function is severely reduced with an estimated ejection fraction in th e range of 30-35%. There is a flattened septum in systole and diastole consistent with right ventricle pressure and vol ume overload. Moderate mitral valve regurgitation. There is mild to moderate tricuspid valve regurgitation. There is estimated moderate pulmonary hypertension present (range 50-60 mmHg). A left sided pleural effusion is present. BP: 109 / 59 HR: 80 Rhythm: Atrial fibrillation, Atrial flut ter MEASUREMENTS (Male / Female) Normal Values Technical Quality:Fair 2D ECHO LV Diastolic Diameter PLAX 5.9 cm 4.2 - 5.9 / 3.9 - 5.3 cm LV Systolic Diameter PLAX 5.5 cm IVS Diastolic Thickness 1.0 cm 0.6 - 1.0 / 0.6 - 0.9 cm LVPW Diastolic Thickness 1.0 cm 0.6 - 1.0 / 0.6 - 0.9 cm LV Relative Wall Thickness 0.3 RV Internal Dim ED PLAX 2.4 cm LVOT Diameter 2.4 cm Aortic Root Diameter 3.1 cm LA Systolic Diameter LX 4.6 cm 3.0 - 4.0 / 2.7 - 3.8 cm M-MODE AV Cusp Separation MM 2.4 cm DOPPLER LVOT Peak Velocity 72.0 cm/s LVOT Peak Gradient 2.1 mmHg LVOT Velocity Time Integral 14.4 cm LV E' Lateral Velocity 14.6 cm/s LV E' Septal Velocity 11.7 cm/s TR Peak Velocity 349.0 cm/s TR Peak Gradient 48.7 mmHg Right Atrial Pressure 10.0 mmHg Pulmonary Artery Systolic Pressu 58.7 mmHg Right Ventricular Systolic Press 58.7 mmHg PV Peak Velocity 66.3 cm/s PV Peak Gradient 1.8 mmHg FINDINGS LEFT VENTRICLE Mildly dilated left ventricle. Wall thickness is normal. The left ventricular systolic function is severely reduced with an estimated ejection fraction in th e range of 30-35%. There is a flattened septum in systole and diastole consistent with right ventricle pressure and vol ume overload. RIGHT VENTRICLE The right ventricle is mildly dilated. LEFT ATRIUM The left atrial size is [id number] dilated. RIGHT ATRIUM The right atrial size is moderately dilated. ATRIAL SEPTUM No atrial level shunt is demonstrated by color flow Doppler interrogation. AORTA The aortic root and proximal ascending aorta are normal in size on limited imaging. MITRAL VALVE Grossly normal mitral valve Moderate mitral valve regurgitation. The mitral valve regurgitation jet is directed posteriorly. No mitral valve stenosis. AORTIC VALVE Aortic valve sclerosis is present. No aortic valve regurgitation. No aortic valve stenosis. TRICUSPID VALVE There is mild to moderate tricuspid valve regurgitation. The estimated pulmonary arterial pressure is 59 mmHg. There is estimated moderate pulmonary hypertension present (range 50-60 mmHg). PULMONARY VALVE Trivial pulmonary valve regurgitation. VESSELS The inferior vena cava was not well visualized. PERICARDIUM No pericardial effusion. A left sided pleural effusion is present. Bong Tinsley DO (Electronically Signed) Final Date:20 May 2017 17:33
--- NOTE | 2017-05-20 18:49 | EKG ---
Date Performed: 05/19/2017 Time Performed: 19:36:41 PTAGE: 67 years EKG: ATRIAL FIBRILLATION WITH RAPID VENTRICULAR RESPONSE WITH ABERRANT CONDUCTION OR VENTRICULAR PREMATURE COMPLEXES POSSIBLE RIGHT VENTRICULAR CONDUCTION DELAY ST DEVIATION AND MODERATE T-WAVE ABN ORMALITY, CONSIDER LATERAL ISCHEMIA ABNORMAL ECG NO PREVIOUS TRACING DOCTOR: Prashant Baum Interpretating Date/Time 05/20/2017 18:43:56
--- NOTE | 2017-05-20 19:39 | MB ---
cc: Valentina Montgomery MD, [place] W MD DATE OF CONSULT: 05/20/2017 REASON FOR CONSULTATION: COPD and exacerbation. HISTORY OF PRESENT ILLNESS: Mrs. Sheppard is a 67-year-old female who presents to the emergency room with left-sided dull, aching chest pain that has improved since her arrival to the emergency room. She had increasing shortness of breath, cough and expectoration of whitish, yellowish mucoid sputum for 4 days prior to her ER visit. No fever, no chills, no hemoptysis, no TB or previous industrial exposure. She as well was noted to be in atrial fibrillation with a rapid ventricular response. Cardiology has been consulted to evaluate her cardiac status. PAST MEDICAL HISTORY: COPD, atrial fibrillation, hypertension, hyperlipidemia, congestive heart failure, acid reflux. She had a previous hysterectomy. MEDICATIONS: At home include Symbicort twice daily, albuterol as needed, Lasix, potassium, insulin, simvastatin, sertraline, and Coumadin. ALLERGIES NONE KNOWN TO MEDICATIONS FAMILY HISTORY: Positive for heart disease and COPD. SOCIAL HISTORY: Remote smoking history, has stopped smoking since 1983. Does not drink any alcohol, does not use drugs. No history of TB. No history of industrial exposure. REVIEW OF SYSTEMS: A 12-point review of systems as per HPI and past history, otherwise negative. PHYSICAL EXAMINATION: GENERAL/VITAL SIGNS: The patient is alert, breathing 22 times a minute, pulse 100, blood pressure 134/72, oxygen saturation 96% on O2 at 4 liters via nasal cannula. HEENT: Unremarkable. Eyes without icterus. NECK: No adenopathy. No thyroid enlargement. Central trachea. CHEST: Scattered rhonchi bilaterally. CARDIAC: PMI distant. S1, S2 audible. No murmur, no rub. ABDOMEN: Lax. Bowel sounds audible. EXTREMITIES: 2+ edema. LABORATORY DATA: White count 14,000, hemoglobin 12, hematocrit 37, platelets 125,000. Sodium 135, potassium 3.8. Arterial blood gas today pH 7.34, pCO2 50, pO2 81. IMPRESSION: 1. Chronic obstructive pulmonary disease in exacerbation. 2. Acute on chronic respiratory failure. 3. Atrial fibrillation with rapid ventricular response. 4. Question pneumonia with associated effusion. 5. Diabetes mellitus. 6. Congestive heart failure. PLAN: The patient is on oxygen therapy which will be maintained. Antibiotic therapy for possible underlying pneumonia would be appropriate as well. Chest x-ray will be followed. The patient has evidence of hypercarbia and mild respiratory acidosis, which may or may not resolve with treatment of her underlying COPD. We will follow and treat accordingly. I do thank you for asking me to partake in Mrs. Sheppard's care. Valentina Montgomery MD [email or web address] , 06:51 PM , 07:21 PM
[2017-05-20] MEDS ORDERED: CHLORHEXIDINE GLUCONATE 2 % 1 PACK (2 CLOTHS)(extra cloths) TOPICAL PRN (20:30)
[2017-05-20] MEDS: cefTRIAXone INJ 1,000 MG in SODIUM CHLORIDE 0.9% INJ 100 ML IV SCH (20:44)
[2017-05-20] MEDS: PRAVASTATIN SOD 40 MG TAB PO SCH (20:45)
[2017-05-20] MEDS: AZITHROMYCIN INJ 500 MG in SODIUM CHLOR 0.9% 250 ML INJ 250 ML IV SCH (20:59)
[2017-05-21] VITALS (16 sets, daily range): BP systolic 115–134; BP diastolic 56–68; PULSE 82–90; RESP 21–32; TEMP 97.7–98.2; O2SAT 91–97
[2017-05-21] MEDS: HEPARIN SODIUM - SQ 10,000 UNITS/ML VIAL SQ SCH ×3 (01:51→17:37)
[2017-05-21] MEDS: DILTIAZEM HCL 60 MG TAB PO SCH ×5 (01:51→23:40)
[2017-05-21] MEDS: CHLORHEXIDINE GLUCONATE 2 % 1 PACK (2 CLOTHS)(taper/protocol) TOPICAL SCH (04:00)
[2017-05-21 05:38] LABS: AUTOMATED NEUTROPHIL # 10.4 TH/MM3 (1.8-7.7); BASOPHIL % 0.2 % (0.0-2.0); HEMATOCRIT 32.3 % (35.0-46.0); HEMOGLOBIN 10.4 GM/DL (11.6-15.3); LYMPH % 3.9 % (9.0-44.0); LYMPHOCYTE # 0.4 TH/MM3 (1.0-4.8); MEAN CELL VOLUME 77.1 FL (80.0-100.0); MEAN CORPUSCULAR HGB CONC 32.4 % (32.0-36.0); MEAN PLATELET VOLUME 9.8 FL (7.0-11.0); MONO % 3.7 % (0.0-8.0); MONOCYTE # 0.4 TH/MM3 (0-0.9); NEUT % 92.2 % (16.0-70.0); PLATELET COUNT 119 TH/MM3 (150-450); RED BLOOD COUNT 4.18 MIL/MM3 (4.00-5.30); RED CELL DISTRIBUTION WIDTH 18.8 % (11.6-17.2); WHITE BLOOD COUNT 11.3 TH/MM3 (4.0-11.0)
[2017-05-21 06:07] LABS: BICARBONATE 27.9 MEQ/L (21.0-32.0); CALCIUM 9.3 MG/DL (8.5-10.1); CREATININE 0.86 MG/DL (0.50-1.00)
[2017-05-21] MEDS: METOPROLOL TARTRATE 25 MG TAB PO SCH ×2 (08:16→20:30)
[2017-05-21] MEDS: POTASSIUM CHLORIDE 10 MEQ CAP PO SCH (08:17)
[2017-05-21] MEDS: FUROSEMIDE 40 MG TAB PO SCH ×2 (08:17→20:29)
[2017-05-21] MEDS: GABAPENTIN 100 MG CAP PO SCH ×3 (08:17→17:37)
[2017-05-21] MEDS: SERTRALINE HCL 100 MG TAB PO SCH ×2 (08:18→12:05)
[2017-05-21] MEDS: SERTRALINE HCL 50 MG TAB PO SCH ×2 (08:18→12:06)
--- NOTE | 2017-05-21 08:51 | HHI.PR ---
Subjective Remarks Follow up respiratory failure, a-fib with RVR. The patient states that her breathing is improving. Denies chest pain. No events reported overnight per nursing. Objective Vitals Vital Signs Date Time Temp Pulse Resp B/P (MAP) Pulse Ox O2 Delivery O2 Flow Rate FiO2 05/21/17 08:00 98.0 83 22 115/56 (75) 96 05/21/17 08:00 85 05/21/17 07:38 85 05/21/17 06:00 85 05/21/17 04:00 82 05/21/17 04:00 97.7 82 21 127/68 (87) 95 05/21/17 02:00 82 05/21/17 00:58 97 Partial Rebreather 12.00 05/21/17 00:00 97.9 90 32 126/58 (80) 96 05/21/17 00:00 90 05/20/17 22:00 90 05/20/17 20:00 85 05/20/17 20:00 97.6 85 24 126/69 (88) 95 05/20/17 19:43 96 Partial Rebreather 12.00 05/20/17 19:00 100 Partial Non-Rebreather 15.00 05/20/17 18:50 Partial Non-Rebreather 15.00 05/20/17 18:49 97.4 88 29 142/72 (95) 98 05/20/17 18:46 05/20/17 15:32 101 123/68 05/20/17 15:00 94 14 124/68 (86) 94 Partial Rebreather 11.00 05/20/17 13:00 93 16 153/87 (109) 94 Room Air 05/20/17 11:00 80 18 109/57 (74) 95 Non-Rebreather 11.00 05/20/17 09:00 107 20 140/75 (96) 94 Partial Rebreather 11.00 I/O 05/20/17 05/20/17 05/20/17 05/21/17 05/21/17 05/21/17 07:00 15:00 23:00 07:00 15:00 23:00 Intake Total 850 ml 200 ml 720 ml Output Total 50 ml Balance 850 ml 200 ml 670 ml Intake Oral 200 ml 720 ml IV Total 850 ml Output Urine Total 50 ml # Voids 1 2 # Bowel Movements 0 Result Diagram: 3/7/18 0454 05/21/17 0454 Imaging Last Impressions Chest X-Ray 05/19/17 194 Signed Impressions: Service Date/Time: Friday, May 19, 2017 19:45 - CONCLUSION: Left lower lobe partially consolidative infiltrate and probable associated pleural effusion. Angel Hill MD Objective Remarks General: Obese female in no acute distress. Heart: Tachycardic. No murmur. Lungs: Scattered wheezing. Breathing is nonlabored. On nonrebreather. Abdomen: Soft, nontender, nondistended. Extremities: Chronic bilateral lower extremity edema with venous stasis changes. Psych: Sleeping, but awakens and answers questions. Procedures None Urinary Catheter: No Vascular Central Line Catheter: No A/P Problem List: (1) COPD exacerbation ICD Code: J44.1 - Chronic obstructive pulmonary disease with (acute) exacerbation (2) Diabetes mellitus ICD Code: E11.9 - Type 2 diabetes mellitus without complications (3) Chronic systolic CHF (congestive heart failure) ICD Code: I50.22 - Chronic systolic (congestive) heart failure (4) Hypertension ICD Code: I10 - Essential (primary) hypertension (5) Hyperlipidemia ICD Code: E78.5 - Hyperlipidemia, unspecified (6) Atrial fibrillation with RVR ICD Code: I48.91 - Unspecified atrial fibrillation Status: Acute (7) Pneumonia ICD Code: J18.9 - Pneumonia, unspecified organism Status: Acute (8) Shortness of breath ICD Code: R06.02 - Shortness of breath Status: Acute (9) Sepsis ICD Code: A41.9 - Sepsis, unspecified organism (10) Acute kidney injury ICD Code: N17.9 - Acute kidney failure, unspecified Assessment and Plan 1. Atrial fibrillation with RVR: Transitioned from Cardizem drip to oral Cardizem. Rate improved. Continue Coumadin. Appreciate cardiology recommendations. 2. Pneumonia: Continue antibiotics. Continue supplemental oxygen. 3. COPD exacerbation with acute respiratory failure: Continue supplemental oxygen, bronchodilators, steroids. Appreciate pulmonology recommendations. 4. Chronic systolic congestive heart failure: Continue Lasix. Echocardiogram shows EF 30-35%. Appreciate cardiology recommendations. Monitor strict intake/ output. 5. Diabetes mellitus: Monitor Accu-Cheks and cover with sliding scale insulin. 6. Hyperlipidemia: Continue statin. 7. Acute kidney injury: Creatinine improving. 8. DVT prophylaxis: Coumadin. 9. CODE STATUS: Full code. Problem Qualifiers (1) Pneumonia: Qualified Codes: J18.1 - Lobar pneumonia, unspecified organism Chapin Greene MD May 21, 2017 08:51
[2017-05-21] MEDS: BUDESONIDE-FORMOTEROL 160/4.5 MCG INHALER INH SCH ×2 (09:00→20:30)
[2017-05-21] MEDS: methylPREDNISolone SOD SUCC 125 MG/2 ML VIAL IV PUSH SCH ×2 (09:00→20:29)
[2017-05-21] MEDS: DOCUSATE SODIUM 50 MG/SENNA 8.6 MG TAB PO SCH ×2 (09:00→20:30)
[2017-05-21] MEDS: SODIUM CHLORIDE 0.9% FLUSH 10 ML FLUSH IV FLUSH SCH ×2 (09:00→20:29)
[2017-05-21 11:53] LABS: INTERNATIONAL NORMALIZED RATIO 4.9 RATIO; PROTHROMBIN TIME - PATIENT 48.7 SEC (9.8-11.6)
[2017-05-21] MEDS: INSULIN ASPART SUPPLEMENTAL SCALE SQ SCH ×3 (12:04→20:42)
--- NOTE | 2017-05-21 13:57 | PD.CARD.PN ---
Subjective Subjective Remarks No events overnight No chest pain SOB somewhat better Objective Medications Current Medications Medications (Trade) Dose Ordered Sig/Carmen Route Start Time Stop Time Status Last Admin Diltiazem HCl 125 mg/Sodium Chloride 125 ml @ 5 mls/hr TITRATE PRN IV 05/19/17 19:45 Future Hold 05/20/17 15:32 (Duoneb Neb) 1 ampule Q4HR NEB PRN NEB 05/20/17 01:45 Azithromycin 500 mg/Sodium Chloride 250 ml @ 250 mls/hr Q24H IV 05/20/17 21:00 05/20/17 20:59 Ceftriaxone Sodium 1000 mg/ Sodium Chloride 100 ml @ 200 mls/hr Q24H IV 05/20/17 20:00 05/20/17 20:44 (SoluMEDROL INJ) 60 mg Q12HR IV PUSH 05/20/17 09:00 05/21/17 09:00 (NS Flush) 2 ml UNSCH PRN IV FLUSH 05/20/17 01:45 (NS Flush) 2 ml BID IV FLUSH 05/20/17 09:00 05/21/17 09:00 (Tylenol) 650 mg Q4H PRN PO 05/20/17 01:45 (Zofran Inj) 4 mg Q6H PRN IVP 05/20/17 01:45 (Heparin Inj) 5,000 units Q8H SQ 05/20/17 01:45 05/21/17 12:05 (Narcan Inj) 0.4 mg UNSCH PRN IV PUSH 05/20/17 01:45 (Basilia-Colace) 1 tab BID PO 05/20/17 09:00 05/21/17 09:00 (Milk Of Magnesia Liq) 30 ml Q12H PRN PO 05/20/17 01:45 (Senokot) 17.2 mg Q12H PRN PO 05/20/17 01:45 (Dulcolax Supp) 10 mg DAILY PRN RECTAL 05/20/17 01:45 (Lactulose Liq) 30 ml DAILY PRN PO 05/20/17 01:45 (Symbicort 160-4.5 Mcg Inh) 1 puff Q12HR INH 05/20/17 09:00 05/21/17 09:00 (Lasix) 40 mg BID PO 05/20/17 09:00 05/21/17 08:17 (Neurontin) 100 mg TID PO 05/20/17 09:00 05/21/17 12:04 (Lopressor) 25 mg BID PO 05/20/17 09:00 05/21/17 08:16 (Percocet 5-325 Mg) 1 tab Q6H PRN PO 05/20/17 01:45 05/21/17 08:17 (KCl) 10 meq DAILY PO 05/20/17 09:00 05/21/17 08:17 (Zoloft) 50 mg DAILY PO 05/20/17 09:00 05/21/17 12:06 (Zoloft) 100 mg DAILY PO 05/20/17 09:00 05/21/17 12:05 (Coumadin) 2 mg DAILY@1600 PO 05/20/17 16:00 05/20/17 16:29 (Coumadin) 10 mg DAILY@1600 PO 05/20/17 16:00 05/20/17 16:29 (Pravachol) 80 mg HS PO 05/20/17 21:00 05/20/17 20:45 (D50w (Vial) Inj) 50 ml UNSCH PRN IV PUSH 05/20/17 01:45 (Glucagon Inj) 1 mg UNSCH PRN OTHER 05/20/17 01:45 (NovoLOG SUPPLEMENTAL SCALE) 1 ACHS SLIDING SCALE SQ 05/20/17 08:00 05/21/17 12:04 (Cardizem) 60 mg Q6HR PO 05/20/17 15:00 05/21/17 12:04 Miscellaneous Information Patient in critical care unit? Ass... Q361D .XX 05/20/17 20:30 05/20/17 20:30 (Chlorhexidine 2% Cloth) 3 pack DAILY@04 TOPICAL 05/21/17 04:00 05/25/17 04:01 05/21/17 04:00 (Chlorhexidine 2% Cloth) 3 pack UNSCH PRN TOPICAL 05/20/17 20:30 05/25/17 20:26 Vital Signs / I&O Vital Signs Date Time Temp Pulse Resp B/P (MAP) Pulse Ox O2 Delivery O2 Flow Rate FiO2 05/21/17 12:00 87 05/21/17 12:00 97.8 86 22 128/58 (81) 96 05/21/17 10:00 85 05/21/17 08:53 97 Partial Rebreather 12.00 05/21/17 08:00 98.0 83 22 115/56 (75) 96 05/21/17 08:00 85 05/21/17 07:38 85 05/21/17 06:00 85 05/21/17 04:00 82 05/21/17 04:00 97.7 82 21 127/68 (87) 95 05/21/17 02:00 82 05/21/17 00:58 97 Partial Rebreather 12.00 05/21/17 00:00 97.9 90 32 126/58 (80) 96 05/21/17 00:00 90 05/20/17 22:00 90 05/20/17 20:00 85 05/20/17 20:00 97.6 85 24 126/69 (88) 95 05/20/17 19:43 96 Partial Rebreather 12.00 05/20/17 19:00 100 Partial Non-Rebreather 15.00 05/20/17 18:50 Partial Non-Rebreather 15.00 05/20/17 18:49 97.4 88 29 142/72 (95) 98 05/20/17 18:46 05/20/17 15:32 101 123/68 05/20/17 15:00 94 14 124/68 (86) 94 Partial Rebreather 11.00 I/O 05/20/17 05/20/17 05/20/17 05/21/17 05/21/17 05/21/17 07:00 15:00 23:00 07:00 15:00 23:00 Intake Total 850 ml 200 ml 720 ml Output Total 50 ml Balance 850 ml 200 ml 670 ml Intake Oral 200 ml 720 ml IV Total 850 ml Output Urine Total 50 ml # Voids 1 2 # Bowel Movements 0 Physical Exam GENERAL: NAD SKIN: Warm and dry. HEAD: Atraumatic. Normocephalic. EYES: Pupils equal and round. No scleral icterus. No injection or drainage. ENT: No nasal bleeding or discharge. Mucous membranes pink and moist. NECK: Trachea midline. No JVD. CARDIOVASCULAR: Irregularly irregular RESPIRATORY: No accessory muscle use. Decreased breath sounds bilaterally GASTROINTESTINAL: Abdomen soft, non-tender, nondistended. Hepatic and splenic margins not palpable. MUSCULOSKELETAL: 2+ edema, chronic in nature NEUROLOGICAL: Awake and alert. No obvious cranial nerve deficits. Motor grossly within normal limits. Five out of 5 muscle strength in the arms and legs. Normal speech. PSYCHIATRIC: Appropriate mood and affect; insight and judgment normal. Laboratory Laboratory Tests Test 05/21/17 04:54 05/21/17 11:13 White Blood Count 11.3 TH/MM3 Red Blood Count 4.18 MIL/MM3 Hemoglobin 10.4 GM/DL Hematocrit 32.3 % Mean Corpuscular Volume 77.1 FL Mean Corpuscular Hemoglobin 25.0 PG Mean Corpuscular Hemoglobin Concent 32.4 % Red Cell Distribution Width 18.8 % Platelet Count 119 TH/MM3 Mean Platelet Volume 9.8 FL Neutrophils (%) (Auto) 92.2 % Lymphocytes (%) (Auto) 3.9 % Monocytes (%) (Auto) 3.7 % Eosinophils (%) (Auto) 0.0 % Basophils (%) (Auto) 0.2 % Neutrophils # (Auto) 10.4 TH/MM3 Lymphocytes # (Auto) 0.4 TH/MM3 Monocytes # (Auto) 0.4 TH/MM3 Eosinophils # (Auto) 0.0 TH/MM3 Basophils # (Auto) 0.0 TH/MM3 CBC Comment DIFF FINAL Differential Comment Blood Urea Nitrogen 47 MG/DL Creatinine 0.86 MG/DL Random Glucose 225 MG/DL Calcium Level 9.3 MG/DL Sodium Level 139 MEQ/L Potassium Level 4.3 MEQ/L Chloride Level 104 MEQ/L Carbon Dioxide Level 27.9 MEQ/L Anion Gap 7 MEQ/L Estimat Glomerular Filtration Rate 65 ML/MIN Prothrombin Time 48.7 SEC Prothromb Time International Ratio 4.9 RATIO Assessment and Plan Problem List: (1) COPD exacerbation ICD Codes: J44.1 - Chronic obstructive pulmonary disease with (acute) exacerbation (2) Chronic systolic CHF (congestive heart failure) ICD Codes: I50.22 - Chronic systolic (congestive) heart failure (3) Atrial fibrillation with RVR ICD Codes: I48.91 - Unspecified atrial fibrillation Status: Acute (4) Hypertension ICD Codes: I10 - Essential (primary) hypertension (5) Hyperlipidemia ICD Codes: E78.5 - Hyperlipidemia, unspecified (6) Diabetes mellitus ICD Codes: E11.9 - Type 2 diabetes mellitus without complications (7) Shortness of breath ICD Codes: R06.02 - Shortness of breath Status: Acute Assessment and Plan 1) Afib now with CVR Con't Cardizem PO RVR may be due to increased sympathetics Con't Coumadin therapy 2) PNA/COPD per primary/pulm 3) EF 30-35% Con't BB, will add CYNTHIA-I once more stable as blood pressure borderline low Bong Tinsley DO May 21, 2017 13:57
[2017-05-21] MEDS: WARFARIN SOD 10 MG TAB PO SCH (16:39)
[2017-05-21] MEDS: WARFARIN SOD 2 MG TAB PO SCH (16:40)
--- NOTE | 2017-05-21 17:31 | HHI.PR ---
Subjective Remarks ALERT NO ACUTE DISTRESS ON O2 Objective Vital Signs Date Time Temp Pulse Resp B/P (MAP) Pulse Ox O2 Delivery O2 Flow Rate FiO2 05/21/17 16:00 86 05/21/17 16:00 98.2 88 22 134/58 (83) 96 05/21/17 14:00 86 05/21/17 12:00 87 05/21/17 12:00 97.8 86 22 128/58 (81) 96 05/21/17 10:00 85 05/21/17 08:53 97 Partial Rebreather 12.00 05/21/17 08:00 98.0 83 22 115/56 (75) 96 05/21/17 08:00 85 05/21/17 07:38 85 05/21/17 06:00 85 05/21/17 04:00 82 05/21/17 04:00 97.7 82 21 127/68 (87) 95 05/21/17 02:00 82 05/21/17 00:58 97 Partial Rebreather 12.00 05/21/17 00:00 97.9 90 32 126/58 (80) 96 05/21/17 00:00 90 05/20/17 22:00 90 05/20/17 20:00 85 05/20/17 20:00 97.6 85 24 126/69 (88) 95 05/20/17 19:43 96 Partial Rebreather 12.00 05/20/17 19:00 100 Partial Non-Rebreather 15.00 05/20/17 18:50 Partial Non-Rebreather 15.00 05/20/17 18:49 97.4 88 29 142/72 (95) 98 05/20/17 18:46 I/O 05/20/17 05/20/17 05/20/17 05/21/17 05/21/17 05/21/17 07:00 15:00 23:00 07:00 15:00 23:00 Intake Total 850 ml 200 ml 720 ml Output Total 50 ml Balance 850 ml 200 ml 670 ml Intake Oral 200 ml 720 ml IV Total 850 ml Output Urine Total 50 ml # Voids 1 2 # Bowel Movements 0 Result Diagram: 05/21/17 0454 05/21/17 045 Objective Remarks GENERAL: SKIN: Warm and dry. HEAD: Atraumatic. Normocephalic. EYES: Pupils equal and round. No scleral icterus. No injection or drainage. ENT: No nasal bleeding or discharge. Mucous membranes pink and moist. NECK: Trachea midline. No JVD. CARDIOVASCULAR: Regular rate and rhythm. RESPIRATORY: No accessory muscle use. Clear to auscultation. Breath sounds equal bilaterally. GASTROINTESTINAL: Abdomen soft, non-tender, nondistended. Hepatic and splenic margins not palpable. MUSCULOSKELETAL: Extremities without clubbing, cyanosis, or edema. No obvious deformities. NEUROLOGICAL: Awake and alert. No obvious cranial nerve deficits. Motor grossly within normal limits. Five out of 5 muscle strength in the arms and legs. Normal speech. PSYCHIATRIC: Appropriate mood and affect; insight and judgment normal. Assessment and Plan Assessment and Plan ASSESSMENT COPD EXACERBATION RESPIRATORY FAILURE AFIB HTN HND CHF PLAN O2 / BIPAP IF NEEDED ANTIBX BRONCHODILATORS WILL FOLLOW Valentina Montgomery MD May 21, 2017 17:31
[2017-05-21] MEDS: AZITHROMYCIN INJ 500 MG in SODIUM CHLOR 0.9% 250 ML INJ 250 ML IV SCH (20:29)
[2017-05-21] MEDS: cefTRIAXone INJ 1,000 MG in SODIUM CHLORIDE 0.9% INJ 100 ML IV SCH (20:29)
[2017-05-21] MEDS: PRAVASTATIN SOD 40 MG TAB PO SCH (20:30)
[2017-05-22] VITALS (32 sets, daily range): BP systolic 87–161; BP diastolic 51–83; PULSE 84–113; RESP 25–45; TEMP 97.8–98.6; O2SAT 90–95
[2017-05-22] MEDS: HEPARIN SODIUM - SQ 10,000 UNITS/ML VIAL SQ SCH ×3 (03:10→17:25)
[2017-05-22] MEDS: CHLORHEXIDINE GLUCONATE 2 % 1 PACK (2 CLOTHS)(taper/protocol) TOPICAL SCH (04:00)
[2017-05-22] MEDS: DILTIAZEM HCL 60 MG TAB PO SCH ×3 (05:58→17:26)
[2017-05-22] MEDS: INSULIN ASPART SUPPLEMENTAL SCALE SQ SCH ×4 (08:00→20:43)
[2017-05-22] MEDS: SODIUM CHLORIDE 0.9% FLUSH 10 ML FLUSH IV FLUSH SCH ×2 (08:39→20:42)
[2017-05-22] MEDS: BUDESONIDE-FORMOTEROL 160/4.5 MCG INHALER INH SCH ×2 (08:39→20:42)
[2017-05-22] MEDS: POTASSIUM CHLORIDE 10 MEQ CAP PO SCH (08:40)
[2017-05-22] MEDS: methylPREDNISolone SOD SUCC 125 MG/2 ML VIAL IV PUSH SCH ×2 (08:40→20:42)
[2017-05-22] MEDS: SERTRALINE HCL 100 MG TAB PO SCH (08:41)
[2017-05-22] MEDS: FUROSEMIDE 40 MG TAB PO SCH ×2 (08:41→20:43)
[2017-05-22] MEDS: DOCUSATE SODIUM 50 MG/SENNA 8.6 MG TAB PO SCH ×2 (08:41→20:43)
[2017-05-22] MEDS: SERTRALINE HCL 50 MG TAB PO SCH (08:41)
[2017-05-22] MEDS: GABAPENTIN 100 MG CAP PO SCH ×3 (08:41→17:26)
[2017-05-22] MEDS: METOPROLOL TARTRATE 25 MG TAB PO SCH ×2 (08:42→20:43)
--- NOTE | 2017-05-22 08:44 | HHI.PR ---
Subjective Remarks Follow up sepsis, A. fib with RVR. The patient states that she feels better today. Shortness of breath is improving. No chest pain. Objective Vitals Vital Signs Date Time Temp Pulse Resp B/P (MAP) Pulse Ox O2 Delivery O2 Flow Rate FiO2 05/22/17 07:21 91 Nasal Cannula 6.00 05/22/17 06:00 113 05/22/17 04:00 88 05/22/17 04:00 97.8 88 137/69 (91) 93 05/22/17 02:00 85 05/22/17 00:00 98.1 91 45 87/51 (63) 91 05/22/17 00:00 91 05/21/17 22:00 82 05/21/17 20:00 97.9 89 30 132/66 (88) 91 05/21/17 20:00 89 05/21/17 19:17 91 Nasal Cannula 6.00 05/21/17 19:00 91 Nasal Cannula 6.00 05/21/17 18:00 86 05/21/17 16:00 86 05/21/17 16:00 98.2 88 22 134/58 (83) 96 05/21/17 14:00 86 05/21/17 12:00 87 05/21/17 12:00 97.8 86 22 128/58 (81) 96 05/21/17 10:00 85 05/21/17 08:53 97 Partial Rebreather 12.00 I/O 05/21/17 05/21/17 05/21/17 05/22/17 05/22/17 05/22/17 07:00 15:00 23:00 07:00 15:00 23:00 Intake Total 720 ml 682 ml 1000 ml Output Total 50 ml 600 ml 1000 ml Balance 670 ml 82 ml 0 ml Intake Oral 720 ml 682 ml 650 ml IV Total 350 ml Output Urine Total 50 ml 600 ml 1000 ml # Voids 2 # Bowel Movements 0 0 Result Diagram: 05/22/17 0445 05/21/17 0454 Imaging Last Impressions Chest X-Ray 05/19/171940 Signed Impressions: Service Date/Time: Friday, May 19, 2017 19:45 - CONCLUSION: Left lower lobe partially consolidative infiltrate and probable associated pleural effusion. Angel Hill MD Objective Remarks General: Obese female in no acute distress. Heart: Tachycardic. No murmur. Lungs: Clear to auscultation bilaterally. Breathing is nonlabored. Abdomen: Soft, nontender, nondistended. Extremities: Chronic bilateral lower extremity edema with venous stasis changes. Psych: Sleeping, but awakens easily and answers questions. Procedures None Urinary Catheter: No Vascular Central Line Catheter: No A/P Problem List: (1) COPD exacerbation ICD Code: J44.1 - Chronic obstructive pulmonary disease with (acute) exacerbation (2) Diabetes mellitus ICD Code: E11.9 - Type 2 diabetes mellitus without complications (3) Chronic systolic CHF (congestive heart failure) ICD Code: I50.22 - Chronic systolic (congestive) heart failure (4) Hypertension ICD Code: I10 - Essential (primary) hypertension (5) Hyperlipidemia ICD Code: E78.5 - Hyperlipidemia, unspecified (6) Atrial fibrillation with RVR ICD Code: I48.91 - Unspecified atrial fibrillation Status: Acute (7) Pneumonia ICD Code: J18.9 - Pneumonia, unspecified organism Status: Acute (8) Shortness of breath ICD Code: R06.02 - Shortness of breath Status: Acute (9) Sepsis ICD Code: A41.9 - Sepsis, unspecified organism (10) Acute kidney injury ICD Code: N17.9 - Acute kidney failure, unspecified Assessment and Plan 1. Atrial fibrillation with RVR: Transitioned from Cardizem drip to oral Cardizem. Rate improved. Continue Coumadin. Appreciate cardiology recommendations. 2. Sepsis, pneumonia, bacteremia: Patient met criteria for sepsis upon admission with tachycardia, leukocytosis. Continue antibiotics. Continue supplemental oxygen. Blood cultures growing Haemophilus influenza, gram- positive cocci. Final ID pending. Consult infectious disease. 3. COPD exacerbation with acute respiratory failure: Continue supplemental oxygen, bronchodilators, steroids. Appreciate pulmonology recommendations. 4. Chronic systolic congestive heart failure: Continue Lasix. Echocardiogram shows EF 30-35%. Appreciate cardiology recommendations. Monitor strict intake/ output. 5. Diabetes mellitus: Monitor Accu-Cheks and cover with sliding scale insulin. 6. Hyperlipidemia: Continue statin. 7. Acute kidney injury: Labs are pending today. 8. DVT prophylaxis: Coumadin. 9. CODE STATUS: Full code. 10. Anemia: H&H trending down. No reported bleeding. Check stool Hemoccult. Problem Qualifiers (1) Pneumonia: Qualified Codes: J18.1 - Lobar pneumonia, unspecified organism Chapin Greene MD May 22, 2017 08:44
[2017-05-22 11:42] LABS: BICARBONATE 30.6 MEQ/L (21.0-32.0); CREATININE 0.92 MG/DL (0.50-1.00)
[2017-05-22 12:14] LABS: AUTOMATED NEUTROPHIL # 8.5 TH/MM3 (1.8-7.7); BASOPHIL % 0.1 % (0.0-2.0); HEMATOCRIT 32.7 % (35.0-46.0); HEMOGLOBIN 10.4 GM/DL (11.6-15.3); LYMPH % 4.8 % (9.0-44.0); LYMPHOCYTE # 0.4 TH/MM3 (1.0-4.8); MEAN CELL VOLUME 77.3 FL (80.0-100.0); MEAN CORPUSCULAR HEMOGLOBIN 24.6 PG (27.0-34.0); MEAN CORPUSCULAR HGB CONC 31.9 % (32.0-36.0); MEAN PLATELET VOLUME 9.8 FL (7.0-11.0); MONO % 4.2 % (0.0-8.0); MONOCYTE # 0.4 TH/MM3 (0-0.9); NEUT % 90.9 % (16.0-70.0); PLATELET COUNT 144 TH/MM3 (150-450); RED BLOOD COUNT 4.23 MIL/MM3 (4.00-5.30); RED CELL DISTRIBUTION WIDTH 19.2 % (11.6-17.2); WHITE BLOOD COUNT 9.4 TH/MM3 (4.0-11.0)
--- NOTE | 2017-05-22 12:28 | PD.CARD.PN ---
Subjective Subjective Remarks No events overnight No chest pain SOB somewhat better Objective Medications Current Medications Medications (Trade) Dose Ordered Sig/Carmen Route Start Time Stop Time Status Last Admin Diltiazem HCl 125 mg/Sodium Chloride 125 ml @ 5 mls/hr TITRATE PRN IV 05/19/17 19:45 Future Hold 05/20/17 15:32 (Duoneb Neb) 1 ampule Q4HR NEB PRN NEB 05/20/17 01:45 05/21/17 16:44 Azithromycin 500 mg/Sodium Chloride 250 ml @ 250 mls/hr Q24H IV 05/20/17 21:00 05/21/17 20:29 Ceftriaxone Sodium 1000 mg/ Sodium Chloride 100 ml @ 200 mls/hr Q24H IV 05/20/17 20:00 05/21/17 20:29 (SoluMEDROL INJ) 60 mg Q12HR IV PUSH 05/20/17 09:00 05/22/17 08:40 (NS Flush) 2 ml UNSCH PRN IV FLUSH 05/20/17 01:45 (NS Flush) 2 ml BID IV FLUSH 05/20/17 09:00 05/22/17 08:39 (Tylenol) 650 mg Q4H PRN PO 05/20/17 01:45 (Zofran Inj) 4 mg Q6H PRN IVP 05/20/17 01:45 (Heparin Inj) 5,000 units Q8H SQ 05/20/17 01:45 05/22/17 08:41 (Narcan Inj) 0.4 mg UNSCH PRN IV PUSH 05/20/17 01:45 (Basilia-Colace) 1 tab BID PO 05/20/17 09:00 05/22/17 08:41 (Milk Of Magnesia Liq) 30 ml Q12H PRN PO 05/20/17 01:45 (Senokot) 17.2 mg Q12H PRN PO 05/20/17 01:45 (Dulcolax Supp) 10 mg DAILY PRN RECTAL 05/20/17 01:45 (Lactulose Liq) 30 ml DAILY PRN PO 05/20/17 01:45 (Symbicort 160-4.5 Mcg Inh) 1 puff Q12HR INH 05/20/17 09:00 05/22/17 08:39 (Lasix) 40 mg BID PO 05/20/17 09:00 05/22/17 08:41 (Neurontin) 100 mg TID PO 05/20/17 09:00 05/22/17 08:41 (Lopressor) 25 mg BID PO 05/20/17 09:00 05/22/17 08:42 (Percocet 5-325 Mg) 1 tab Q6H PRN PO 05/20/17 01:45 05/21/17 08:17 (KCl) 10 meq DAILY PO 05/20/17 09:00 05/22/17 08:40 (Zoloft) 50 mg DAILY PO 05/20/17 09:00 05/22/17 08:41 (Zoloft) 100 mg DAILY PO 05/20/17 09:00 05/22/17 08:41 (Coumadin) 2 mg DAILY@1600 PO 05/20/17 16:00 05/21/17 16:40 (Coumadin) 10 mg DAILY@1600 PO 05/20/17 16:00 05/21/17 16:39 (Pravachol) 80 mg HS PO 05/20/17 21:00 05/21/17 20:30 (D50w (Vial) Inj) 50 ml UNSCH PRN IV PUSH 05/20/17 01:45 (Glucagon Inj) 1 mg UNSCH PRN OTHER 05/20/17 01:45 (NovoLOG SUPPLEMENTAL SCALE) 1 ACHS SLIDING SCALE SQ 05/20/17 08:00 05/22/17 08:00 (Cardizem) 60 mg Q6HR PO 05/20/17 15:00 05/22/17 05:58 Miscellaneous Information Patient in critical care unit? Ass... Q361D .XX 05/20/17 20:30 05/20/17 20:30 (Chlorhexidine 2% Cloth) 3 pack DAILY@04 TOPICAL 05/21/17 04:00 05/25/17 04:01 05/21/17 04:00 (Chlorhexidine 2% Cloth) 3 pack UNSCH PRN TOPICAL 05/20/17 20:30 05/25/17 20:26 Vital Signs / I&O Vital Signs Date Time Temp Pulse Resp B/P (MAP) Pulse Ox O2 Delivery O2 Flow Rate FiO2 05/22/17 07:21 91 Nasal Cannula 6.00 05/22/17 06:00 113 05/22/17 04:00 88 05/22/17 04:00 97.8 88 137/69 (91) 93 05/22/17 02:00 85 05/22/17 00:00 98.1 91 45 87/51 (63) 91 05/22/17 00:00 91 05/21/17 22:00 82 05/21/17 20:00 97.9 89 30 132/66 (88) 91 05/21/17 20:00 89 05/21/17 19:17 91 Nasal Cannula 6.00 05/21/17 19:00 91 Nasal Cannula 6.00 05/21/17 18:00 86 05/21/17 16:00 86 05/21/17 16:00 98.2 88 22 134/58 (83) 96 05/21/17 14:00 86 I/O 05/21/17 05/21/17 05/21/17 05/22/17 05/22/17 05/22/17 07:00 15:00 23:00 07:00 15:00 23:00 Intake Total 720 ml 682 ml 1000 ml Output Total 50 ml 600 ml 1000 ml Balance 670 ml 82 ml 0 ml Intake Oral 720 ml 682 ml 650 ml IV Total 350 ml Output Urine Total 50 ml 600 ml 1000 ml # Voids 2 # Bowel Movements 0 0 Physical Exam GENERAL: NAD SKIN: Warm and dry. HEAD: Atraumatic. Normocephalic. EYES: Pupils equal and round. No scleral icterus. No injection or drainage. ENT: No nasal bleeding or discharge. Mucous membranes pink and moist. NECK: Trachea midline. No JVD. CARDIOVASCULAR: Irregularly irregular RESPIRATORY: No accessory muscle use. Decreased breath sounds bilaterally GASTROINTESTINAL: Abdomen soft, non-tender, nondistended. Hepatic and splenic margins not palpable. MUSCULOSKELETAL: 2+ edema, chronic in nature NEUROLOGICAL: Awake and alert. No obvious cranial nerve deficits. Motor grossly within normal limits. Five out of 5 muscle strength in the arms and legs. Normal speech. PSYCHIATRIC: Appropriate mood and affect; insight and judgment normal. Laboratory Laboratory Tests Test 05/22/17 04:45 05/22/17 10:57 Prothrombin Time 20.4 SEC Prothromb Time International Ratio 2.0 RATIO White Blood Count 9.4 TH/MM3 Red Blood Count 4.23 MIL/MM3 Hemoglobin 10.4 GM/DL Hematocrit 32.7 % Mean Corpuscular Volume 77.3 FL Mean Corpuscular Hemoglobin 24.6 PG Mean Corpuscular Hemoglobin Concent 31.9 % Red Cell Distribution Width 19.2 % Platelet Count 144 TH/MM3 Mean Platelet Volume 9.8 FL Neutrophils (%) (Auto) 90.9 % Lymphocytes (%) (Auto) 4.8 % Monocytes (%) (Auto) 4.2 % Eosinophils (%) (Auto) 0.0 % Basophils (%) (Auto) 0.1 % Neutrophils # (Auto) 8.5 TH/MM3 Lymphocytes # (Auto) 0.4 TH/MM3 Monocytes # (Auto) 0.4 TH/MM3 Eosinophils # (Auto) 0.0 TH/MM3 Basophils # (Auto) 0.0 TH/MM3 CBC Comment AUTO DIFF Differential Comment Blood Urea Nitrogen 43 MG/DL Creatinine 0.92 MG/DL Random Glucose 368 MG/DL Calcium Level 9.0 MG/DL Sodium Level 140 MEQ/L Potassium Level 4.2 MEQ/L Chloride Level 102 MEQ/L Carbon Dioxide Level 30.6 MEQ/L Anion Gap 7 MEQ/L Estimat Glomerular Filtration Rate 61 ML/MIN Assessment and Plan Problem List: (1) COPD exacerbation ICD Codes: J44.1 - Chronic obstructive pulmonary disease with (acute) exacerbation (2) Chronic systolic CHF (congestive heart failure) ICD Codes: I50.22 - Chronic systolic (congestive) heart failure (3) Atrial fibrillation with RVR ICD Codes: I48.91 - Unspecified atrial fibrillation Status: Acute (4) Hypertension ICD Codes: I10 - Essential (primary) hypertension (5) Hyperlipidemia ICD Codes: E78.5 - Hyperlipidemia, unspecified (6) Diabetes mellitus ICD Codes: E11.9 - Type 2 diabetes mellitus without complications (7) Shortness of breath ICD Codes: R06.02 - Shortness of breath Status: Acute Assessment and Plan 1) Afib now with CVR Con't Cardizem PO RVR may be due to increased sympathetics Con't Coumadin therapy 2) PNA/COPD per primary/pulm 3) EF 30-35% Con't BB, will add CYNTHIA-I once more stable as blood pressure borderline low 4) Drop in Hgb Plan for Hemoccult stool Bong Tinsley DO May 22, 2017 12:28
[2017-05-22 13:19] LABS: INTERNATIONAL NORMALIZED RATIO 9.3 RATIO; PROTHROMBIN TIME - PATIENT 92.3 SEC (9.8-11.6)
[2017-05-22] MEDS ORDERED: PHYTONADIONE 10 MG/ML VIAL SQ ONE (13:30)
--- NOTE | 2017-05-22 13:45 | MB ---
cc: Hardik Monreal MD DATE OF CONSULT: 05/22/2017 REQUESTING PHYSICIAN: Dr. Greene REASON: Bacteremia. HISTORY OF PRESENT ILLNESS: This is a 67-year-old white female who has a history of asthma and COPD. The patient developed cough three days before presenting to the emergency department. She has home nurse caregivers. She was noted by her home nurse caregiver to be wheezing more than usual three days before presenting to the emergency department. She was evaluated in the emergency department and at that time she was noted to have elevated heart rate of 140 and was in atrial fibrillation. She has a history of atrial fibrillation. Her white count was elevated at 14.9 in the emergency department. She was afebrile and her heart rate was 165. Chest x-ray showed a left lower lobe partially consolidative infiltrate. The patient was started on antibiotics. Cultures were taken including blood cultures. The blood cultures came back showing Haemophilus influenzae and Staph coag-negative in both sets with all of the three positive bottles showing both organisms. The fourth bottle has no growth. The patient has been afebrile. Her white blood cell count has improved from admission and today it is normal. She also had decreased platelet count which has also improved. She tells me that she feels a lot better. She is currently on O2 via nasal cannula. She denies chills, nausea or vomiting or headache. She continues to have a cough with very little clear sputum production and she reports left-sided chest pleuritic pain. Testing for influenza was negative. The patient had a 2-D echocardiogram which showed moderate mitral regurgitation and mild to moderate tricuspid valve regurgitation and also moderate pulmonary hypertension. PAST MEDICAL HISTORY: 1. COPD. The patient uses home oxygen. 2. Hypertension. 3. Hyperlipidemia. 4. Atrial fibrillation. 5. Diabetes mellitus. 6. Asthma. 7. Congestive heart failure. 8. Gastroesophageal reflux disease. 9. Hysterectomy. ALLERGIES: NO KNOWN DRUG ALLERGIES. MEDICATIONS: 1. Azithromycin. 2. Pravachol. 3. Ceftriaxone. 4. Methylprednisolone. 5. Cardizem. 6. Coumadin. 7. Symbicort. 8. Lasix. 9. Neurontin. 10. Lopressor. 11. Potassium. 12. Zoloft. 13. Percocet 5 p.r.n. SOCIAL HISTORY: The patient moved to the [facility] from [place] in February 2017. No tobacco use, no alcohol, no illicit drugs. The patient used to be a smoker up until 1983. FAMILY HISTORY: Significant for COPD. REVIEW OF SYSTEMS: CONSTITUTIONAL: Denies fever or chills. HEAD, EYES, EARS, NOSE AND THROAT: No visual blurring or diplopia. Denies soreness of the throat. Denies difficulty swallowing. Denies hearing loss. NECK: Denies neck pain or swelling. CARDIOVASCULAR: Significant for palpitations. RESPIRATORY: Significant for cough and left-sided chest pain. GASTROINTESTINAL: Denies nausea, vomiting, abdominal pain or diarrhea. GENITOURINARY: Denies dysuria. MUSCULOSKELETAL: Denies musculoskeletal pain. ENDOCRINE: Denies polydipsia or polyuria. HEMATOPOIETIC: Denies easy bruising or bleeding. INTEGUMENTARY: Denies skin rash or itching. NEUROLOGIC: Denies problems with coordination. PSYCHIATRIC: Denies mood changes. PHYSICAL EXAMINATION: GENERAL: This is a moderately obese female who is in no acute distress. She is awake and alert and oriented. She is on oxygen via nasal cannula. VITAL SIGNS: Temperature 97.8, blood pressure 137/69, respirations 16, heart rate 113. HEENT: The head is atraumatic. Extraocular movements grossly intact. Pupils reactive to light. No icterus. Oropharynx - moist mucosa without lesions. NECK: Supple, without lymphadenopathy. LUNGS: Rhonchi at the left base. Her right lung is clear. HEART: Irregular rate and rhythm. No audible murmurs, rubs or gallops. ABDOMEN: Bowel sounds present. Soft, nontender. RECTAL: Not performed. EXTREMITIES: No clubbing, cyanosis or edema. Brown discoloration of the skin of the distal tibias. SKIN: No rash. NEUROLOGIC: No gross focal findings. The patient is alert and oriented. PSYCHIATRIC: The patient is calm and cooperative. LABORATORY DATA: WBC 9.4, platelets 144, hemoglobin 10.4, 90% neutrophils. Creatinine 0.92, estimated GFR of 61, sodium 140. IMPRESSION: 1. Bacteremia due to Haemophilus influenzae and Staphylococcus coagulase-negative, source most likely pneumonia. 2. Left lung pneumonia. 3. Leukocytosis. 4. Chronic obstructive pulmonary disease. RECOMMENDATIONS: 1. Continue ceftriaxone. 2. Continue azithromycin. 3. Follow repeat blood cultures. 4. Monitor clinical status. I do not think it is necessary to begin treatments for the Staphylococcus coagulase-negative unless the repeat blood cultures are positive with the same organism. Clinically she appears to be improving and the white blood cell count has normalized. Thank you for the consultation. I will follow the patient's progress with you. MD ABDIRASHID Cohen/PURA , 12:41 PM , 01:44 PM
[2017-05-22 14:55] LABS: HEMATOCRIT 31.2 % (35.0-46.0); HEMOGLOBIN 10.8 GM/DL (11.6-15.3)
--- NOTE | 2017-05-22 15:32 | HHI.PR ---
Subjective Remarks ALERT NO ACUTE DISTRESS ON O2 Objective Vital Signs Date Time Temp Pulse Resp B/P (MAP) Pulse Ox O2 Delivery O2 Flow Rate FiO2 05/22/17 15:01 86 05/22/17 15:00 87 05/22/17 14:01 91 31 134/63 (86) 95 05/22/17 14:01 91 05/22/17 14:00 92 05/22/17 14:00 92 31 94 05/22/17 13:01 88 05/22/17 13:01 88 29 149/67 (94) 95 05/22/17 13:00 90 30 95 05/22/17 13:00 90 05/22/17 12:01 88 35 148/67 (94) 92 05/22/17 12:01 88 05/22/17 12:00 91 05/22/17 12:00 91 32 91 05/22/17 11:01 90 05/22/17 11:01 90 32 131/61 (84) 93 05/22/17 11:00 90 05/22/17 11:00 90 33 94 05/22/17 10:01 85 05/22/17 10:01 85 32 144/65 (91) 95 05/22/17 10:00 86 31 95 05/22/17 10:00 86 05/22/17 09:01 102 05/22/17 09:01 102 36 150/83 (105) 92 05/22/17 09:00 107 05/22/17 09:00 107 33 91 05/22/17 08:01 91 05/22/17 08:01 91 25 136/63 (87) 90 05/22/17 08:00 90 05/22/17 08:00 98.6 90 27 90 05/22/17 07:21 91 Nasal Cannula 6.00 05/22/17 07:00 96 Nasal Cannula 6.00 05/22/17 06:00 113 05/22/17 04:00 88 05/22/17 04:00 97.8 88 137/69 (91) 93 05/22/17 02:00 85 05/22/17 00:00 98.1 91 45 87/51 (63) 91 05/22/17 00:00 91 05/21/17 22:00 82 05/21/17 20:00 97.9 89 30 132/66 (88) 91 05/21/17 20:00 89 05/21/17 19:17 91 Nasal Cannula 6.00 05/21/17 19:00 91 Nasal Cannula 6.00 05/21/17 18:00 86 05/21/17 16:00 86 05/21/17 16:00 98.2 88 22 134/58 (83) 96 I/O 05/21/17 05/21/17 05/21/17 05/22/17 05/22/17 05/22/17 07:00 15:00 23:00 07:00 15:00 23:00 Intake Total 720 ml 682 ml 1000 ml Output Total 50 ml 600 ml 1000 ml Balance 670 ml 82 ml 0 ml Intake Oral 720 ml 682 ml 650 ml IV Total 350 ml Output Urine Total 50 ml 600 ml 1000 ml # Voids 2 # Bowel Movements 0 0 Result Diagram: 05/22/17 1429 05/22/17 1057 Objective Remarks GENERAL: SKIN: Warm and dry. HEAD: Atraumatic. Normocephalic. EYES: Pupils equal and round. No scleral icterus. No injection or drainage. ENT: No nasal bleeding or discharge. Mucous membranes pink and moist. NECK: Trachea midline. No JVD. CARDIOVASCULAR: Regular rate and rhythm. RESPIRATORY: No accessory muscle use. Clear to auscultation. Breath sounds equal bilaterally. GASTROINTESTINAL: Abdomen soft, non-tender, nondistended. Hepatic and splenic margins not palpable. MUSCULOSKELETAL: Extremities without clubbing, cyanosis, or edema. No obvious deformities. NEUROLOGICAL: Awake and alert. No obvious cranial nerve deficits. Motor grossly within normal limits. Five out of 5 muscle strength in the arms and legs. Normal speech. PSYCHIATRIC: Appropriate mood and affect; insight and judgment normal. Assessment and Plan Assessment and Plan ASSESSMENT COPD EXACERBATION RESPIRATORY FAILURE AFIB HTN HND CHF PLAN O2 / BIPAP IF NEEDED ANTIBX BRONCHODILATORS Valentina Montgomery MD May 22, 2017 15:32
--- NOTE | 2017-05-22 16:07 | RADRPT ---
EXAM DATE/TIME: 05/22/2017 15:38 [facility] COMPARISON: CHEST SINGLE AP, May 19, 2017, 19:45. INDICATIONS : Evaluate pneumonia MEDICAL HISTORY : Chronic obstructive pulmonary disease. Diabetes mellitus type II. Afib SURGICAL HISTORY : None. ENCOUNTER: Subsequent ACUITY: 4 - 6 days PAIN SCORE: 0/10 LOCATION: chest FINDINGS: The right lung remains clear well-aerated. There continues to be patchy parenchymal infiltrates left lung which appear to be increased compared to the prior exam. The heart size remains diffusely enlarg ed. There is no pneumothorax. CONCLUSION: Increasing parenchymal infiltrates throughout the left lung compared to the prior study. Jef Saldaña MD on May 22, 2017 at 16:04 Board Certified Radiologist. This report was verified electronically.
[2017-05-22] MEDS: cefTRIAXone INJ 1,000 MG in SODIUM CHLORIDE 0.9% INJ 100 ML IV SCH (20:41)
[2017-05-22] MEDS: AZITHROMYCIN INJ 500 MG in SODIUM CHLOR 0.9% 250 ML INJ 250 ML IV SCH (20:41)
[2017-05-22] MEDS: PRAVASTATIN SOD 40 MG TAB PO SCH (20:43)
[2017-05-23] VITALS (21 sets, daily range): BP systolic 133–164; BP diastolic 63–85; PULSE 77–101; RESP 24–30; TEMP 97.7–98.8; O2SAT 88–97
[2017-05-23] MEDS: INSULIN ASPART SUPPLEMENTAL SCALE SQ SCH ×4 (00:27→21:38)
[2017-05-23] MEDS: DILTIAZEM HCL 60 MG TAB PO SCH ×4 (00:27→19:01)
[2017-05-23] MEDS: HEPARIN SODIUM - SQ 10,000 UNITS/ML VIAL SQ SCH (00:27)
[2017-05-23 04:27] LABS: HEMATOCRIT 33.8 % (35.0-46.0); HEMOGLOBIN 11.3 GM/DL (11.6-15.3); MEAN CELL VOLUME 76.9 FL (80.0-100.0); MEAN CORPUSCULAR HEMOGLOBIN 25.7 PG (27.0-34.0); MEAN CORPUSCULAR HGB CONC 33.5 % (32.0-36.0); MEAN PLATELET VOLUME 9.6 FL (7.0-11.0); PLATELET COUNT 154 TH/MM3 (150-450); RED CELL DISTRIBUTION WIDTH 19.2 % (11.6-17.2); WHITE BLOOD COUNT 7.8 TH/MM3 (4.0-11.0)
[2017-05-23 04:37] LABS: PROTHROMBIN TIME - PATIENT 68.8 SEC (9.8-11.6)
[2017-05-23 04:50] LABS: BICARBONATE 31.8 MEQ/L (21.0-32.0); CALCIUM 8.9 MG/DL (8.5-10.1); CREATININE 0.75 MG/DL (0.50-1.00); PHOSPHORUS 3.4 MG/DL (2.5-4.9)
[2017-05-23 05:08] LABS: INTERNATIONAL NORMALIZED RATIO 6.9 RATIO
[2017-05-23 07:20] LABS: BANDS 1 % (0-6); LYMPHOCYTES 6 % (9-44); METAMYELOCYTES 3 % (0-1); MONOCYTES 2 % (0-8); NEUTROPHIL # MANUAL DIFF 7.2 TH/MM3 (1.8-7.7); POLYS (SEG NEUTROPHILS) 88 % (16-70)
[2017-05-23 07:25] LABS: OVALOCYTES 1+ (NORMAL); SPHEROCYTES 1+ (NORMAL)
[2017-05-23] MEDS ORDERED: PHYTONADIONE 10 MG/ML VIAL SQ ONE (08:30)
[2017-05-23] MEDS: DOCUSATE SODIUM 50 MG/SENNA 8.6 MG TAB PO SCH ×2 (08:49→20:20)
[2017-05-23] MEDS: BUDESONIDE-FORMOTEROL 160/4.5 MCG INHALER INH SCH ×2 (08:49→20:19)
[2017-05-23] MEDS: SODIUM CHLORIDE 0.9% FLUSH 10 ML FLUSH IV FLUSH SCH ×2 (08:49→20:19)
[2017-05-23] MEDS: FUROSEMIDE 40 MG TAB PO SCH ×2 (08:49→20:19)
[2017-05-23] MEDS: METOPROLOL TARTRATE 25 MG TAB PO SCH ×2 (08:49→20:19)
[2017-05-23] MEDS: methylPREDNISolone SOD SUCC 125 MG/2 ML VIAL IV PUSH SCH ×2 (08:50→20:19)
[2017-05-23] MEDS: SERTRALINE HCL 100 MG TAB PO SCH (08:50)
[2017-05-23] MEDS: GABAPENTIN 100 MG CAP PO SCH ×3 (08:50→19:01)
[2017-05-23] MEDS: POTASSIUM CHLORIDE 10 MEQ CAP PO SCH (08:50)
--- NOTE | 2017-05-23 11:05 | PD.CARD.PN ---
Subjective Subjective Remarks No events overnight No chest pain SOB somewhat better Objective Medications Current Medications Medications (Trade) Dose Ordered Sig/Carmen Route Start Time Stop Time Status Last Admin Diltiazem HCl 125 mg/Sodium Chloride 125 ml @ 5 mls/hr TITRATE PRN IV 05/19/17 19:45 Future Hold 05/20/17 15:32 (Duoneb Neb) 1 ampule Q4HR NEB PRN NEB 05/20/17 01:45 05/21/17 16:44 Azithromycin 500 mg/Sodium Chloride 250 ml @ 250 mls/hr Q24H IV 05/20/17 21:00 05/22/17 20:41 Ceftriaxone Sodium 1000 mg/ Sodium Chloride 100 ml @ 200 mls/hr Q24H IV 05/20/17 20:00 05/22/17 20:41 (SoluMEDROL INJ) 60 mg Q12HR IV PUSH 05/20/17 09:00 05/23/17 08:50 (NS Flush) 2 ml UNSCH PRN IV FLUSH 05/20/17 01:45 (NS Flush) 2 ml BID IV FLUSH 05/20/17 09:00 05/23/17 08:49 (Zofran Inj) 4 mg Q6H PRN IVP 05/20/17 01:45 (Narcan Inj) 0.4 mg UNSCH PRN IV PUSH 05/20/17 01:45 (Basilia-Colace) 1 tab BID PO 05/20/17 09:00 05/23/17 08:49 (Milk Of Magnesia Liq) 30 ml Q12H PRN PO 05/20/17 01:45 (Senokot) 17.2 mg Q12H PRN PO 05/20/17 01:45 (Dulcolax Supp) 10 mg DAILY PRN RECTAL 05/20/17 01:45 (Lactulose Liq) 30 ml DAILY PRN PO 05/20/17 01:45 (Symbicort 160-4.5 Mcg Inh) 1 puff Q12HR INH 05/20/17 09:00 05/23/17 08:49 (Lasix) 40 mg BID PO 05/20/17 09:00 05/23/17 08:49 (Neurontin) 100 mg TID PO 05/20/17 09:00 05/23/17 08:50 (Lopressor) 25 mg BID PO 05/20/17 09:00 05/23/17 08:49 (Percocet 5-325 Mg) 1 tab Q6H PRN PO 05/20/17 01:45 05/21/17 08:17 (KCl) 10 meq DAILY PO 05/20/17 09:00 05/23/17 08:50 (Zoloft) 100 mg DAILY PO 05/20/17 09:00 05/23/17 08:50 (Coumadin) 2 mg DAILY@1600 PO 05/20/17 16:00 Future Hold 05/21/17 16:40 (Coumadin) 10 mg DAILY@1600 PO 05/20/17 16:00 Future Hold 05/21/17 16:39 (Pravachol) 80 mg HS PO 05/20/17 21:00 05/22/17 20:43 (D50w (Vial) Inj) 50 ml UNSCH PRN IV PUSH 05/20/17 01:45 (Glucagon Inj) 1 mg UNSCH PRN OTHER 05/20/17 01:45 (NovoLOG SUPPLEMENTAL SCALE) 1 ACHS SLIDING SCALE SQ 05/20/17 08:00 05/23/17 00:27 (Cardizem) 60 mg Q6HR PO 05/20/17 15:00 05/23/17 05:14 Miscellaneous Information Patient in critical care unit? Ass... Q361D .XX 05/20/17 20:30 05/20/17 20:30 (Chlorhexidine 2% Cloth) 3 pack DAILY@04 TOPICAL 05/21/17 04:00 05/25/17 04:01 05/21/17 04:00 (Chlorhexidine 2% Cloth) 3 pack UNSCH PRN TOPICAL 05/20/17 20:30 05/25/17 20:26 Vital Signs / I&O Vital Signs Date Time Temp Pulse Resp B/P (MAP) Pulse Ox O2 Delivery O2 Flow Rate FiO2 05/23/17 06:00 90 05/23/17 04:00 98.8 94 30 142/65 (90) 93 05/23/17 04:00 83 05/23/17 04:00 94 05/23/17 02:00 83 05/23/17 00:00 89 24 148/70 (96) 91 05/23/17 00:00 89 05/22/17 22:00 84 05/22/17 20:11 95 Nasal Cannula 6.00 05/22/17 20:00 98.3 86 29 161/77 (105) 95 05/22/17 20:00 86 05/22/17 20:00 86 05/22/17 19:01 86 05/22/17 19:00 95 Nasal Cannula 6.00 05/22/17 19:00 87 05/22/17 18:01 95 05/22/17 18:00 91 05/22/17 17:01 90 05/22/17 17:01 90 31 138/70 (92) 93 05/22/17 17:00 91 30 93 05/22/17 17:00 91 05/22/17 16:01 86 05/22/17 16:01 86 26 157/73 (101) 92 05/22/17 16:00 86 05/22/17 16:00 98.2 86 25 92 05/22/17 15:01 86 05/22/17 15:00 87 05/22/17 14:01 91 31 134/63 (86) 95 05/22/17 14:01 91 05/22/17 14:00 92 05/22/17 14:00 92 31 94 05/22/17 13:01 88 05/22/17 13:01 88 29 149/67 (94) 95 05/22/17 13:00 90 30 95 05/22/17 13:00 90 05/22/17 12:01 88 35 148/67 (94) 92 05/22/17 12:01 88 05/22/17 12:00 91 05/22/17 12:00 91 32 91 I/O 05/22/17 05/22/17 05/22/17 05/23/17 05/23/17 05/23/17 07:00 15:00 23:00 07:00 15:00 23:00 Intake Total 1000 ml 960 ml 1150 ml Output Total 1000 ml 200 ml 1200 ml Balance 0 ml 760 ml -50 ml Intake Oral 650 ml 960 ml 800 ml IV Total 350 ml 350 ml Output Urine Total 1000 ml 200 ml 1200 ml # Voids 1 # Bowel Movements 0 0 1 Physical Exam GENERAL: NAD SKIN: Warm and dry. HEAD: Atraumatic. Normocephalic. EYES: Pupils equal and round. No scleral icterus. No injection or drainage. ENT: No nasal bleeding or discharge. Mucous membranes pink and moist. NECK: Trachea midline. No JVD. CARDIOVASCULAR: Irregularly irregular RESPIRATORY: No accessory muscle use. Decreased breath sounds bilaterally GASTROINTESTINAL: Abdomen soft, non-tender, nondistended. Hepatic and splenic margins not palpable. MUSCULOSKELETAL: 2+ edema, chronic in nature NEUROLOGICAL: Awake and alert. No obvious cranial nerve deficits. Motor grossly within normal limits. Five out of 5 muscle strength in the arms and legs. Normal speech. PSYCHIATRIC: Appropriate mood and affect; insight and judgment normal. Laboratory Laboratory Tests Test 05/22/17 11:27 05/22/17 14:29 05/23/17 04:00 Prothrombin Time 92.3 SEC 68.8 SEC Prothromb Time International Ratio 9.3 RATIO 6.9 RATIO Hemoglobin 10.8 GM/DL 11.3 GM/DL Hematocrit 31.2 % 33.8 % White Blood Count 7.8 TH/MM3 Red Blood Count 4.40 MIL/MM3 Mean Corpuscular Volume 76.9 FL Mean Corpuscular Hemoglobin 25.7 PG Mean Corpuscular Hemoglobin Concent 33.5 % Red Cell Distribution Width 19.2 % Platelet Count 154 TH/MM3 Mean Platelet Volume 9.6 FL CBC Comment AUTO DIFF Differential Total Cells Counted 100 Neutrophils % (Manual) 88 % Band Neutrophils % 1 % Lymphocytes % 6 % Monocytes % 2 % Neutrophils # (Manual) 7.2 TH/MM3 Metamyelocytes 3 % Differential Comment FINAL DIFF MANUAL Platelet Estimate NORMAL Platelet Morphology Comment NORMAL Spherocytes 1+ Ovalocytes 1+ Blood Urea Nitrogen 40 MG/DL Creatinine 0.75 MG/DL Random Glucose 270 MG/DL Calcium Level 8.9 MG/DL Phosphorus Level 3.4 MG/DL Magnesium Level 2.0 MG/DL Sodium Level 141 MEQ/L Potassium Level 4.6 MEQ/L Chloride Level 103 MEQ/L Carbon Dioxide Level 31.8 MEQ/L Anion Gap 6 MEQ/L Estimat Glomerular Filtration Rate 77 ML/MIN Assessment and Plan Problem List: (1) COPD exacerbation ICD Codes: J44.1 - Chronic obstructive pulmonary disease with (acute) exacerbation (2) Chronic systolic CHF (congestive heart failure) ICD Codes: I50.22 - Chronic systolic (congestive) heart failure (3) Atrial fibrillation with RVR ICD Codes: I48.91 - Unspecified atrial fibrillation Status: Acute (4) Hypertension ICD Codes: I10 - Essential (primary) hypertension (5) Hyperlipidemia ICD Codes: E78.5 - Hyperlipidemia, unspecified (6) Diabetes mellitus ICD Codes: E11.9 - Type 2 diabetes mellitus without complications (7) Shortness of breath ICD Codes: R06.02 - Shortness of breath Status: Acute Assessment and Plan 1) Afib now with CVR Con't Cardizem PO RVR may be due to increased sympathetics 2) PNA/COPD per primary/pulm 3) EF 30-35% Con't BB, will add CYNTHIA-I once more stable as blood pressure borderline low 4) Drop in Hgb Plan for Hemoccult stool 5) INR elevated ? secondary to Coumadin with anti-biotics Bong Tinsley DO May 23, 2017 11:05
--- NOTE | 2017-05-23 13:02 | HHI.PR ---
Subjective Remarks Follow-up pneumonia, sepsis, bacteremia. The patient states that she is feeling better today. She reports cough, slightly better today. No nausea or vomiting. No chest pain. Objective Vitals Vital Signs Date Time Temp Pulse Resp B/P (MAP) Pulse Ox O2 Delivery O2 Flow Rate FiO2 05/23/17 11:10 93 Nasal Cannula 6.00 05/23/17 06:00 90 05/23/17 04:00 98.8 94 30 142/65 (90) 93 05/23/17 04:00 83 05/23/17 04:00 94 05/23/17 02:00 83 05/23/17 00:00 89 24 148/70 (96) 91 05/23/17 00:00 89 05/22/17 22:00 84 05/22/17 20:11 95 Nasal Cannula 6.00 05/22/17 20:00 98.3 86 29 161/77 (105) 95 05/22/17 20:00 86 05/22/17 20:00 86 05/22/17 19:01 86 05/22/17 19:00 95 Nasal Cannula 6.00 05/22/17 19:00 87 05/22/17 18:01 95 05/22/17 18:00 91 05/22/17 17:01 90 05/22/17 17:01 90 31 138/70 (92) 93 05/22/17 17:00 91 30 93 05/22/17 17:00 91 05/22/17 16:01 86 05/22/17 16:01 86 26 157/73 (101) 92 05/22/17 16:00 86 05/22/17 16:00 98.2 86 25 92 05/22/17 15:01 86 05/22/17 15:00 87 05/22/17 14:01 91 31 134/63 (86) 95 05/22/17 14:01 91 05/22/17 14:00 92 05/22/17 14:00 92 31 94 05/22/17 13:01 88 05/22/17 13:01 88 29 149/67 (94) 95 05/22/17 13:00 90 30 95 05/22/17 13:00 90 I/O 05/22/17 05/22/17 05/22/17 05/23/17 05/23/17 05/23/17 07:00 15:00 23:00 07:00 15:00 23:00 Intake Total 1000 ml 960 ml 1150 ml Output Total 1000 ml 200 ml 1200 ml Balance 0 ml 760 ml -50 ml Intake Oral 650 ml 960 ml 800 ml IV Total 350 ml 350 ml Output Urine Total 1000 ml 200 ml 1200 ml # Voids 1 # Bowel Movements 0 0 1 Result Diagram: 05/23/17 0400 05/23/17 0400 Imaging Last Impressions Chest X-Ray 05/22/17 0000 Signed Impressions: Service Date/Time: May 15:38 - CONCLUSION: Increasing parenchymal infiltrates throughout the left lung compared to the prior study. Jef Saldaña MD Objective Remarks General: Obese female in no acute distress. Heart: Irregular. No murmur. Lungs: Decreased breath sounds throughout. No wheezes noted. Breathing is nonlabored. Abdomen: Soft, nontender, nondistended. Extremities: Chronic bilateral lower extremity edema with venous stasis changes. Psych: Alert, oriented. Procedures None Urinary Catheter: No Vascular Central Line Catheter: No A/P Problem List: (1) COPD exacerbation ICD Code: J44.1 - Chronic obstructive pulmonary disease with (acute) exacerbation (2) Diabetes mellitus ICD Code: E11.9 - Type 2 diabetes mellitus without complications (3) Chronic systolic CHF (congestive heart failure) ICD Code: I50.22 - Chronic systolic (congestive) heart failure (4) Hypertension ICD Code: I10 - Essential (primary) hypertension (5) Hyperlipidemia ICD Code: E78.5 - Hyperlipidemia, unspecified (6) Atrial fibrillation with RVR ICD Code: I48.91 - Unspecified atrial fibrillation Status: Acute (7) Pneumonia ICD Code: J18.9 - Pneumonia, unspecified organism Status: Acute (8) Shortness of breath ICD Code: R06.02 - Shortness of breath Status: Acute (9) Sepsis ICD Code: A41.9 - Sepsis, unspecified organism (10) Acute kidney injury ICD Code: N17.9 - Acute kidney failure, unspecified Assessment and Plan 1. Atrial fibrillation with RVR: Transitioned from Cardizem drip to oral Cardizem. Rate improved. Appreciate cardiology recommendations. 2. Sepsis, pneumonia, bacteremia: Patient met criteria for sepsis upon admission with tachycardia, leukocytosis. Continue antibiotics. Continue supplemental oxygen. Blood cultures growing Haemophilus influenza and coag negative Staphylococcus. Appreciate infectious disease recommendations. Repeat blood cultures are negative so far. 3. COPD exacerbation with acute respiratory failure: Continue supplemental oxygen, bronchodilators, steroids. Appreciate pulmonology recommendations. 4. Chronic systolic congestive heart failure: Continue Lasix. Echocardiogram shows EF 30-35%. Appreciate cardiology recommendations. Monitor strict intake/ output. 5. Diabetes mellitus: Monitor Accu-Cheks and cover with sliding scale insulin. 6. Hyperlipidemia: Continue statin. 7. Acute kidney injury: Improved. Urine output has improved. 8. DVT prophylaxis: Coumadin on hold secondary to supratherapeutic INR. 9. CODE STATUS: Full code. 10. Anemia: H&H improving. No reported bleeding. Stool Hemoccult pending. 11. Over anticoagulation with Coumadin: INR elevated likely secondary to combination of Coumadin with antibiotics. Coumadin is on hold. Given vitamin K. Problem Qualifiers (1) Pneumonia: Qualified Codes: J18.1 - Lobar pneumonia, unspecified organism Chapin Greene MD May 23, 2017 13:02
--- NOTE | 2017-05-23 16:06 | HHI.IDPN ---
Note Infectious Disease Note Patient feels okay. Denies chills. Denies shortness of breath. Afebrile. Has cough but no sputum production. 67-year-old white female who has a history of asthma and COPD. The patient developed cough three days before presenting to the emergency department. She has home nurse caregivers. She was noted by her home nurse caregiver to be wheezing more than usual three days before presenting to the emergency department. She was evaluated in the emergency department and at that time she was noted to have elevated heart rate of 140 and was in atrial fibrillation. She has a history of atrial fibrillation. The patient had a 2-D echocardiogram which showed moderate mitral regurgitation and mild to moderate tricuspid valve regurgitation and also moderate pulmonary hypertension. PAST MEDICAL HISTORY: 1. COPD. The patient uses home oxygen. 2. Hypertension. 3. Hyperlipidemia. 4. Atrial fibrillation. 5. Diabetes mellitus. 6. Asthma. 7. Congestive heart failure. 8. Gastroesophageal reflux disease. 9. Hysterectomy. ALLERGIES: NO KNOWN DRUG ALLERGIES. MEDICATIONS: Current Medications Medications (Trade) Dose Ordered Sig/Carmen Route PRN Reason Start Time Stop Time Status Last Admin Dose Admin Diltiazem HCl 125 mg/Sodium Chloride 125 ml @ 5 mls/hr TITRATE PRN IV tachycardia 05/19/17 19:45 Future Hold 05/20/17 15:32 Albuterol/ Ipratropium (Duoneb Neb) 1 ampule Q4HR NEB PRN NEB SOB/WHeezing 05/20/17 01:45 05/21/17 16:44 Azithromycin 500 mg/Sodium Chloride 250 ml @ 250 mls/hr Q24H IV 05/20/17 21:00 05/22/17 20:41 Ceftriaxone Sodium 1000 mg/ Sodium Chloride 100 ml @ 200 mls/hr Q24H IV 05/20/17 20:00 05/22/17 20:41 Methylprednisolone Sodium Succinate (SoluMEDROL INJ) 60 mg Q12HR IV PUSH 05/20/17 09:00 05/23/17 08:50 Sodium Chloride (NS Flush) 2 ml UNSCH PRN IV FLUSH FLUSH AFTER USING IV ACCESS 05/20/17 01:45 Sodium Chloride (NS Flush) 2 ml BID IV FLUSH 05/20/17 09:00 05/23/17 08:49 Ondansetron HCl (Zofran Inj) 4 mg Q6H PRN IVP NAUSEA OR VOMITING 05/20/17 01:45 Naloxone HCl (Narcan Inj) 0.4 mg UNSCH PRN IV PUSH SEE LABEL COMMENTS 05/20/17 01:45 Senna/Docusate Sodium (Basilia-Colace) 1 tab BID PO 05/20/17 09:00 05/23/17 08:49 Magnesium Hydroxide (Milk Of Magnesia Liq) 30 ml Q12H PRN PO Mild constipation 05/20/17 01:45 Sennosides (Senokot) 17.2 mg Q12H PRN PO Moderate constipation 05/20/17 01:45 Bisacodyl (Dulcolax Supp) 10 mg DAILY PRN RECTAL SEVERE CONSITIPATION / IF NPO 05/20/17 01:45 Lactulose (Lactulose Liq) 30 ml DAILY PRN PO SEVERE CONSITIPATION / IF PO 05/20/17 01:45 Budesonide/ Formoterol Fumarate (Symbicort 160-4.5 Mcg Inh) 1 puff Q12HR INH 05/20/17 09:00 05/23/17 08:49 Furosemide (Lasix) 40 mg BID PO 05/20/17 09:00 05/23/17 08:49 Gabapentin (Neurontin) 100 mg TID PO 05/20/17 09:00 05/23/17 14:46 Metoprolol Tartrate (Lopressor) 25 mg BID PO 05/20/17 09:00 05/23/17 08:49 Oxycodone/ Acetaminophen (Percocet 5-325 Mg) 1 tab Q6H PRN PO PAIN 05/20/17 01:45 05/21/17 08:17 Potassium Chloride (KCl) 10 meq DAILY PO 05/20/17 09:00 05/23/17 08:50 Sertraline HCl (Zoloft) 100 mg DAILY PO 05/20/17 09:00 05/23/17 08:50 Warfarin Sodium (Coumadin) 2 mg DAILY@1600 PO 05/20/17 16:00 Future Hold 05/21/17 16:40 Warfarin Sodium (Coumadin) 10 mg DAILY@1600 PO 05/20/17 16:00 Future Hold 05/21/17 16:39 Pravastatin Sodium (Pravachol) 80 mg HS PO 05/20/17 21:00 05/22/17 20:43 Dextrose (D50w (Vial) Inj) 50 ml UNSCH PRN IV PUSH HYPOGLYCEMIA-SEE COMMENTS 05/20/17 01:45 Glucagon (Glucagon Inj) 1 mg UNSCH PRN OTHER HYPOGLYCEMIA-SEE COMMENTS 05/20/17 01:45 Diltiazem HCl (Cardizem) 60 mg Q6HR PO 05/20/17 15:00 05/23/17 14:46 Miscellaneous Information Patient in critical care unit? Ass... [id number] .XX 05/20/17 20:30 05/20/17 20:30 Chlorhexidine Gluconate (Chlorhexidine 2% Cloth) 3 pack DAILY@04 TOPICAL 05/21/17 04:00 05/25/17 04:01 05/21/17 04:00 Chlorhexidine Gluconate (Chlorhexidine 2% Cloth) 3 pack UNSCH PRN TOPICAL HYGIENIC CARE 05/20/17 20:30 05/25/17 20:26 Insulin Aspart (NovoLOG SUPPLEMENTAL SCALE) 1 ACHS SLIDING SCALE SQ 05/23/17 17:00 SOCIAL HISTORY: The patient moved to the [facility] from [place] in February 2017. No tobacco use, no alcohol, no illicit drugs. The patient used to be a smoker up until 1983. OBJECTIVE: Vital Signs Date Time Temp Pulse Resp B/P (MAP) Pulse Ox O2 Delivery O2 Flow Rate FiO2 05/23/17 14:00 88 28 145/71 (95) 95 05/23/17 13:00 88 30 148/84 (105) 96 05/23/17 12:00 98.4 86 26 162/81 (108) 92 05/23/17 11:10 93 Nasal Cannula 6.00 05/23/17 11:00 81 26 164/85 (111) 96 05/23/17 10:00 88 28 146/74 (98) 96 05/23/17 09:02 100 27 143/70 (94) 88 05/23/17 09:00 98 30 96 05/23/17 08:00 98.8 85 24 159/75 (103) 94 05/23/17 07:00 98 Nasal Cannula 6.00 05/23/17 06:00 90 05/23/17 04:00 98.8 94 30 142/65 (90) 93 05/23/17 04:00 83 05/23/17 04:00 94 05/23/17 02:00 83 05/23/17 00:00 89 24 148/70 (96) 91 05/23/17 00:00 89 05/22/17 22:00 84 05/22/17 20:11 95 Nasal Cannula 6.00 05/22/17 20:00 98.3 86 29 161/77 (105) 95 05/22/17 20:00 86 05/22/17 20:00 86 05/22/17 19:01 86 05/22/17 19:00 95 Nasal Cannula 6.00 05/22/17 19:00 87 05/22/17 18:01 95 05/22/17 18:00 91 05/22/17 17:01 90 05/22/17 17:01 90 31 138/70 (92) 93 05/22/17 17:00 91 30 93 05/22/17 17:00 91 Laboratory Tests Test 05/22/17 10:57 05/22/17 14:29 05/23/17 04:00 White Blood Count 9.4 TH/MM3 7.8 TH/MM3 Red Blood Count 4.23 MIL/MM3 4.40 MIL/MM3 Hemoglobin 10.4 GM/DL 10.8 GM/DL 11.3 GM/DL Hematocrit 32.7 % 31.2 % 33.8 % Mean Corpuscular Volume 77.3 FL 76.9 FL Mean Corpuscular Hemoglobin 24.6 PG 25.7 PG Mean Corpuscular Hemoglobin Concent 31.9 % 33.5 % Red Cell Distribution Width 19.2 % 19.2 % Platelet Count 144 TH/MM3 154 TH/MM3 Mean Platelet Volume 9.8 FL 9.6 FL Neutrophils (%) (Auto) 90.9 % Lymphocytes (%) (Auto) 4.8 % Monocytes (%) (Auto) 4.2 % Eosinophils (%) (Auto) 0.0 % Basophils (%) (Auto) 0.1 % Neutrophils # (Auto) 8.5 TH/MM3 Lymphocytes # (Auto) 0.4 TH/MM3 Monocytes # (Auto) 0.4 TH/MM3 Eosinophils # (Auto) 0.0 TH/MM3 Basophils # (Auto) 0.0 TH/MM3 CBC Comment AUTO DIFF AUTO DIFF Differential Comment AUTO DIFF CONFIRMED FINAL DIFF MANUAL Differential Total Cells Counted 100 Neutrophils % (Manual) 88 % Band Neutrophils % 1 % Lymphocytes % 6 % Monocytes % 2 % Neutrophils # (Manual) 7.2 TH/MM3 Metamyelocytes 3 % Platelet Estimate NORMAL Platelet Morphology Comment NORMAL Spherocytes 1+ Ovalocytes 1+ Laboratory Tests Test 05/22/17 10:57 05/23/17 04:00 Blood Urea Nitrogen 43 MG/DL 40 MG/DL Creatinine 0.92 MG/DL 0.75 MG/DL Random Glucose 368 MG/DL 270 MG/DL Calcium Level 9.0 MG/DL 8.9 MG/DL Sodium Level 140 MEQ/L 141 MEQ/L Potassium Level 4.2 MEQ/L 4.6 MEQ/L Chloride Level 102 MEQ/L 103 MEQ/L Carbon Dioxide Level 30.6 MEQ/L 31.8 MEQ/L Anion Gap 7 MEQ/L 6 MEQ/L Estimat Glomerular Filtration Rate 61 ML/MIN 77 ML/MIN Phosphorus Level 3.4 MG/DL Magnesium Level 2.0 MG/DL Microbiology Date/Time Source Procedure Growth Status 05/22/17 11:43 Blood Peripheral Aerobic Blood Culture - Preliminary NO GROWTH IN 1 DAY Resulted 05/22/17 11:43 Blood Peripheral Anaerobic Blood Culture - Preliminary NO GROWTH IN 1 DAY Resulted 05/22/17 11:33 Blood Peripheral Aerobic Blood Culture - Preliminary NO GROWTH IN 1 DAY Resulted 05/22/17 11:33 Blood Peripheral Anaerobic Blood Culture - Preliminary NO GROWTH IN 1 DAY Resulted 05/20/17 16:33 Nasal Aspirate Influenza Types A,B Antigen (JOSE FRANCISCO) - Final NEGATIVE FOR FLU A AND B ANTIGEN.... Complete PHYSICAL EXAMINATION: GENERAL: No acute distress. Alert and oriented. HEENT: The head is atraumatic. Extraocular movements grossly intact. Pupils reactive to light. No icterus. Oropharynx - moist mucosa without lesions. NECK: Supple, without lymphadenopathy. LUNGS: Rhonchi at the left base. Breath sounds decreased. HEART: Irregular rate and rhythm. No audible murmurs, rubs or gallops. ABDOMEN: Bowel sounds present. Soft, nontender. EXTREMITIES: No clubbing, cyanosis or edema. Brown discoloration of the skin of the distal tibias. SKIN: No rash. NEUROLOGIC: No gross focal findings. PSYCHIATRIC: Calm and cooperative. IMPRESSION: 1. Bacteremia due to Haemophilus influenzae and Staphylococcus coagulase-negative, source most likely pneumonia. 2. Left lung pneumonia. 3. Leukocytosis. 4. Chronic obstructive pulmonary disease. Appears stable. RECOMMENDATIONS: 1. Continue ceftriaxone. 2. Continue azithromycin. 3. Monitor repeat blood cultures. 4. Monitor clinical status. 5. Follow-up chest x-ray for monitoring lung infiltrates. I do not think it is necessary to begin treatments for the Staphylococcus coagulase-negative unless the repeat blood cultures are positive with the same organism. Clinically she appears to be improving and the white blood cell count has normalized. Hardik Monreal MD May 23, 2017 16:06
--- NOTE | 2017-05-23 16:11 | HHI.PR ---
Subjective Remarks ALERT NO ACUTE DISTRESS ON O2 Objective Vital Signs Date Time Temp Pulse Resp B/P (MAP) Pulse Ox O2 Delivery O2 Flow Rate FiO2 05/23/17 16:00 92 05/23/17 16:00 98.6 92 30 150/71 (97) 97 05/23/17 15:00 94 05/23/17 14:00 88 05/23/17 14:00 88 28 145/71 (95) 95 05/23/17 13:00 88 30 148/84 (105) 96 05/23/17 13:00 88 05/23/17 12:00 98.4 86 26 162/81 (108) 92 05/23/17 12:00 86 05/23/17 11:10 93 Nasal Cannula 6.00 05/23/17 11:00 81 26 164/85 (111) 96 05/23/17 11:00 81 05/23/17 10:00 88 05/23/17 10:00 88 28 146/74 (98) 96 05/23/17 09:02 100 27 143/70 (94) 88 05/23/17 09:02 100 05/23/17 09:00 98 05/23/17 09:00 98 30 96 05/23/17 08:00 98.8 85 24 159/75 (103) 94 05/23/17 08:00 85 05/23/17 07:00 98 Nasal Cannula 6.00 05/23/17 06:00 90 05/23/17 04:00 98.8 94 30 142/65 (90) 93 05/23/17 04:00 83 05/23/17 04:00 94 05/23/17 02:00 83 05/23/17 00:00 89 24 148/70 (96) 91 05/23/17 00:00 89 05/22/17 22:00 84 05/22/17 20:11 95 Nasal Cannula 6.00 05/22/17 20:00 98.3 86 29 161/77 (105) 95 05/22/17 20:00 86 05/22/17 20:00 86 05/22/17 19:01 86 05/22/17 19:00 95 Nasal Cannula 6.00 05/22/17 19:00 87 05/22/17 18:01 95 05/22/17 18:00 91 05/22/17 17:01 90 05/22/17 17:01 90 31 138/70 (92) 93 05/22/17 17:00 91 30 93 05/22/17 17:00 91 I/O 05/22/17 05/22/17 05/22/17 05/23/17 05/23/17 05/23/17 07:00 15:00 23:00 07:00 15:00 23:00 Intake Total 1000 ml 960 ml 1150 ml Output Total 1000 ml 200 ml 1200 ml Balance 0 ml 760 ml -50 ml Intake Oral 650 ml 960 ml 800 ml IV Total 350 ml 350 ml Output Urine Total 1000 ml 200 ml 1200 ml # Voids 1 # Bowel Movements 0 0 1 Result Diagram: 05/23/1739905/23/17399 Objective Remarks GENERAL: SKIN: Warm and dry. HEAD: Atraumatic. Normocephalic. EYES: Pupils equal and round. No scleral icterus. No injection or drainage. ENT: No nasal bleeding or discharge. Mucous membranes pink and moist. NECK: Trachea midline. No JVD. CARDIOVASCULAR: Regular rate and rhythm. RESPIRATORY: No accessory muscle use. Clear to auscultation. Breath sounds equal bilaterally. GASTROINTESTINAL: Abdomen soft, non-tender, nondistended. Hepatic and splenic margins not palpable. MUSCULOSKELETAL: Extremities without clubbing, cyanosis, or edema. No obvious deformities. NEUROLOGICAL: Awake and alert. No obvious cranial nerve deficits. Motor grossly within normal limits. Five out of 5 muscle strength in the arms and legs. Normal speech. PSYCHIATRIC: Appropriate mood and affect; insight and judgment normal. Assessment and Plan Assessment and Plan ASSESSMENT COPD EXACERBATION RESPIRATORY FAILURE AFIB HTN HND CHF PLAN O2 / BIPAP IF NEEDED ANTIBX BRONCHODILATORS INCREASE ACTIVITY Valentina Montgomery MD May 23, 2017 16:11
[2017-05-23] MEDS: cefTRIAXone INJ 1,000 MG in SODIUM CHLORIDE 0.9% INJ 100 ML IV SCH (20:19)
[2017-05-23] MEDS: PRAVASTATIN SOD 40 MG TAB PO SCH (20:20)
[2017-05-23] MEDS: AZITHROMYCIN INJ 500 MG in SODIUM CHLOR 0.9% 250 ML INJ 250 ML IV SCH (21:31)
[2017-05-24] VITALS (17 sets, daily range): BP systolic 136–176; BP diastolic 60–89; PULSE 82–101; RESP 21–34; TEMP 97.6–98.4; O2SAT 86–95
[2017-05-24] MEDS: DILTIAZEM HCL 60 MG TAB PO SCH ×4 (00:29→16:35)
[2017-05-24] MEDS: CHLORHEXIDINE GLUCONATE 2 % 1 PACK (2 CLOTHS)(taper/protocol) TOPICAL SCH (04:00)
[2017-05-24 05:01] LABS: BASOPHIL % 0.1 % (0.0-2.0); HEMATOCRIT 34.5 % (35.0-46.0); HEMOGLOBIN 11.3 GM/DL (11.6-15.3); LYMPH % 6.5 % (9.0-44.0); LYMPHOCYTE # 0.6 TH/MM3 (1.0-4.8); MEAN CELL VOLUME 76.9 FL (80.0-100.0); MEAN CORPUSCULAR HGB CONC 32.6 % (32.0-36.0); MEAN PLATELET VOLUME 9.2 FL (7.0-11.0); MONO % 3.1 % (0.0-8.0); MONOCYTE # 0.3 TH/MM3 (0-0.9); NEUT % 90.3 % (16.0-70.0); PLATELET COUNT 144 TH/MM3 (150-450); RED BLOOD COUNT 4.49 MIL/MM3 (4.00-5.30); RED CELL DISTRIBUTION WIDTH 18.9 % (11.6-17.2); WHITE BLOOD COUNT 8.9 TH/MM3 (4.0-11.0)
[2017-05-24 05:03] LABS: INTERNATIONAL NORMALIZED RATIO 1.9 RATIO
[2017-05-24 05:11] LABS: BICARBONATE 36.2 MEQ/L (21.0-32.0); CALCIUM 8.4 MG/DL (8.5-10.1); CREATININE 0.82 MG/DL (0.50-1.00)
[2017-05-24 06:22] LABS: BANDS 5 % (0-6); LYMPHOCYTES 5 % (9-44); MONOCYTES 1 % (0-8); MYELOCYTES 3 % (0-0); NEUTROPHIL # MANUAL DIFF 8.4 TH/MM3 (1.8-7.7); POLYS (SEG NEUTROPHILS) 86 % (16-70)
[2017-05-24 06:23] LABS: OVALOCYTES 1+ (NORMAL)
--- NOTE | 2017-05-24 08:59 | HHI.PR ---
Subjective Remarks Follow-up sepsis, bacteremia, pneumonia. The patient states that she had a good night. No chest pain or dyspnea this morning. She is still coughing. No nausea or vomiting. Objective Vitals Vital Signs Date Time Temp Pulse Resp B/P (MAP) Pulse Ox O2 Delivery O2 Flow Rate FiO2 05/24/17 07:45 94 Nasal Cannula 5.00 05/24/17 06:00 93 05/24/17 04:00 95 05/24/17 04:00 98.4 88 31 143/80 (101) 94 05/24/17 02:00 83 05/24/17 02:00 93 05/24/17 00:00 98.0 82 21 150/79 (102) 94 05/24/17 00:00 82 05/23/17 22:00 77 05/23/17 20:00 92 05/23/17 20:00 97.7 92 28 133/63 (86) 92 05/23/17 19:49 93 Nasal Cannula 4.50 05/23/17 19:14 101 05/23/17 19:00 93 Nasal Cannula 5.00 05/23/17 19:00 93 05/23/17 18:00 88 05/23/17 16:00 92 05/23/17 16:00 98.6 92 30 150/71 (97) 97 05/23/17 15:00 94 05/23/17 14:00 88 05/23/17 14:00 88 28 145/71 (95) 95 05/23/17 13:00 88 30 148/84 (105) 96 05/23/17 13:00 88 05/23/17 12:00 98.4 86 26 162/81 (108) 92 05/23/17 12:00 86 05/23/17 11:10 93 Nasal Cannula 6.00 05/23/17 11:00 81 26 164/85 (111) 96 05/23/17 11:00 81 05/23/17 10:00 88 05/23/17 10:00 88 28 146/74 (98) 96 05/23/17 09:02 100 27 143/70 (94) 88 05/23/17 09:02 100 05/23/17 09:00 98 05/23/17 09:00 98 30 96 I/O 3/9/18 3/905/23/17 05/24/17 05/24/17 05/24/17 07:00 15:00 23:00 07:00 15:00 23:00 Intake Total 1150 ml 1550 ml 150 ml Output Total 1200 ml 1100 ml 4 ml Balance -50 ml 450 ml 146 ml Intake Oral 800 ml 1200 ml 150 ml IV Total 350 ml 350 ml Output Urine Total 1200 ml 1100 ml 4 ml # Bowel Movements 1 0 0 Result Diagram: 05/24/17 0425 05/24/17 0425 Imaging Last Impressions Chest X-Ray 05/22/17 0000 Signed Impressions: Service Date/Time: May 15:38 - CONCLUSION: Increasing parenchymal infiltrates throughout the left lung compared to the prior study. Jef Saldaña MD Objective Remarks General: Obese female in no acute distress. Heart: Irregular. No murmur. Lungs: Decreased breath sounds throughout. No wheezes noted. Breathing is nonlabored. Abdomen: Soft, nontender, nondistended. Extremities: Chronic bilateral lower extremity edema with venous stasis changes. Psych: Alert, oriented. Procedures None Urinary Catheter: No Vascular Central Line Catheter: No A/P Problem List: (1) COPD exacerbation ICD Code: J44.1 - Chronic obstructive pulmonary disease with (acute) exacerbation (2) Diabetes mellitus ICD Code: E11.9 - Type 2 diabetes mellitus without complications (3) Chronic systolic CHF (congestive heart failure) ICD Code: I50.22 - Chronic systolic (congestive) heart failure (4) Hypertension ICD Code: I10 - Essential (primary) hypertension (5) Hyperlipidemia ICD Code: E78.5 - Hyperlipidemia, unspecified (6) Atrial fibrillation with RVR ICD Code: I48.91 - Unspecified atrial fibrillation Status: Acute (7) Pneumonia ICD Code: J18.9 - Pneumonia, unspecified organism Status: Acute (8) Shortness of breath ICD Code: R06.02 - Shortness of breath Status: Acute (9) Sepsis ICD Code: A41.9 - Sepsis, unspecified organism (10) Acute kidney injury ICD Code: N17.9 - Acute kidney failure, unspecified Assessment and Plan 1. Atrial fibrillation with RVR: Transitioned from Cardizem drip to oral Cardizem. Rate improved. Appreciate cardiology recommendations. Anticoagulation with Coumadin. 2. Sepsis, pneumonia, bacteremia: Patient met criteria for sepsis upon admission with tachycardia, leukocytosis. Continue antibiotics. Continue supplemental oxygen. Blood cultures growing Haemophilus influenza and coag negative Staphylococcus. Appreciate infectious disease recommendations. Repeat blood cultures are negative so far. 3. COPD exacerbation with acute respiratory failure: Continue supplemental oxygen, bronchodilators, steroids. Appreciate pulmonology recommendations. 4. Chronic systolic congestive heart failure: Continue Lasix. Echocardiogram shows EF 30-35%. Appreciate cardiology recommendations. Monitor strict intake/ output. 5. Diabetes mellitus: Monitor Accu-Cheks and cover with sliding scale insulin. 6. Hyperlipidemia: Continue statin. 7. Acute kidney injury: Improved. Urine output has improved. 8. DVT prophylaxis: Coumadin on hold secondary to supratherapeutic INR. 9. CODE STATUS: Full code. 10. Anemia: H&H improving. No reported bleeding. Stool Hemoccult ordered. 11. Over-anticoagulation with Coumadin: Improved. INR 1.9 today. Resume Coumadin. Problem Qualifiers (1) Pneumonia: Qualified Codes: J18.1 - Lobar pneumonia, unspecified organism Chapin Greene MD May 24, 2017 08:59
[2017-05-24] MEDS: INSULIN DETEMIR 100 UNITS/ML VIAL SQ SCH (09:00)
[2017-05-24] MEDS: methylPREDNISolone SOD SUCC 125 MG/2 ML VIAL IV PUSH SCH (09:18)
[2017-05-24] MEDS: DOCUSATE SODIUM 50 MG/SENNA 8.6 MG TAB PO SCH (09:20)
[2017-05-24] MEDS: SERTRALINE HCL 100 MG TAB PO SCH (09:20)
[2017-05-24] MEDS: SODIUM CHLORIDE 0.9% FLUSH 10 ML FLUSH IV FLUSH SCH (09:20)
[2017-05-24] MEDS: METOPROLOL TARTRATE 25 MG TAB PO SCH (09:20)
[2017-05-24] MEDS: GABAPENTIN 100 MG CAP PO SCH ×3 (09:20→16:35)
[2017-05-24] MEDS: POTASSIUM CHLORIDE 10 MEQ CAP PO SCH (09:20)
[2017-05-24] MEDS: FUROSEMIDE 40 MG TAB PO SCH (09:20)
[2017-05-24] MEDS: BUDESONIDE-FORMOTEROL 160/4.5 MCG INHALER INH SCH (09:21)
[2017-05-24] MEDS: INSULIN ASPART SUPPLEMENTAL SCALE SQ SCH ×3 (09:25→16:35)
--- NOTE | 2017-05-24 10:59 | HHI.PR ---
Subjective Remarks Patient is on 5L oxygen. Afebrile. Objective Vital Signs Vital Signs Date Time Temp Pulse Resp B/P (MAP) Pulse Ox O2 Delivery O2 Flow Rate FiO2 05/24/17 07:45 94 Nasal Cannula 5.00 05/24/17 06:00 93 05/24/17 04:00 95 05/24/17 04:00 98.4 88 31 143/80 (101) 94 05/24/17 02:00 83 05/24/17 02:00 93 05/24/17 00:00 98.0 82 21 150/79 (102) 94 05/24/17 00:00 82 05/23/17 22:00 77 05/23/17 20:00 92 05/23/17 20:00 97.7 92 28 133/63 (86) 92 05/23/17 19:49 93 Nasal Cannula 4.50 05/23/17 19:14 101 05/23/17 19:00 93 Nasal Cannula 5.00 05/23/17 19:00 93 05/23/17 18:00 88 05/23/17 16:00 92 05/23/17 16:00 98.6 92 30 150/71 (97) 97 05/23/17 15:00 94 05/23/17 14:00 88 05/23/17 14:00 88 28 145/71 (95) 95 05/23/17 13:00 88 30 148/84 (105) 96 05/23/17 13:00 88 05/23/17 12:00 98.4 86 26 162/81 (108) 92 05/23/17 12:00 86 05/23/17 11:10 93 Nasal Cannula 6.00 05/23/17 11:00 81 26 164/85 (111) 96 05/23/17 11:00 81 I/O 05/23/17 05/23/17 05/23/17 05/24/17 05/24/17 05/24/17 07:00 15:00 23:00 07:00 15:00 23:00 Intake Total 1150 ml 1550 ml 150 ml Output Total 1200 ml 1100 ml 4 ml Balance -50 ml 450 ml 146 ml Intake Oral 800 ml 1200 ml 150 ml IV Total 350 ml 350 ml Output Urine Total 1200 ml 1100 ml 4 ml # Bowel Movements 1 0 0 Result Diagram: 05/24/17 0425 05/24/17 0425 Other Results Last Impressions Chest X-Ray 05/22/17 0000 Signed Impressions: Service Date/Time: May 15:38 - CONCLUSION: Increasing parenchymal infiltrates throughout the left lung compared to the prior study. Jef Saldaña MD Objective Remarks GENERAL: Patient is on 5L oxygen with good sats SKIN: Warm and dry. HEAD: Normocephalic. EYES: No scleral icterus. No injection or drainage. NECK: Supple, trachea midline. No JVD or lymphadenopathy. CARDIOVASCULAR: Regular rate and rhythm without murmurs, gallops, or rubs. RESPIRATORY: Breath sounds equal bilaterally. No accessory muscle use. GASTROINTESTINAL: Abdomen soft, non-tender, nondistended. MUSCULOSKELETAL: No cyanosis, + edema. Neuro: awake and alert A/P Assessment and Plan 1)Resp Insuff 2)COPD exac 3)AFIB 4)HTN 5)CHF PLAN Wean down oxygen as marilee keep sats >92% Bronchodilators ( DuoNeb, Symbicort) NIPPV PRN for resp distress taper steroids- decrease solumederol 40mg Q12 Continue with diuretics- on Lasix 40mg BID Echo showed EF 30-35% Continue with abx ( Rocephin, Zithromax) Continue treatment plan Shahid Farias MD May 24, 2017 10:59
[2017-05-24] MEDS ORDERED: RESP: ALBUTEROL 2.5 MG/IPRATROPIUM 0.5 MG NEB (PRN) NEB (11:00)
--- NOTE | 2017-05-24 11:07 | HHI.IDPN ---
Note Infectious Disease Note ID COVERAGE 67-year-old white female who has a history of asthma and COPD. The patient developed cough three days before presenting to the emergency department. She has home nurse caregivers. She was noted by her home nurse caregiver to be wheezing more than usual three days before presenting to the emergency department. She was evaluated in the emergency department and at that time she was noted to have elevated heart rate of 140 and was in atrial fibrillation. She has a history of atrial fibrillation. The patient had a 2-D echocardiogram which showed moderate mitral regurgitation and mild to moderate tricuspid valve regurgitation and also moderate pulmonary hypertension. Notes reviewed Temps ok States breathing is ok Cough is the same States she uses O2 at home all the time No N/V Swallowing ok Repeat BC negative Last CXR with increased L consolidation PAST HISTORY: 1. COPD. The patient uses home oxygen. 2. Hypertension. 3. Hyperlipidemia. 4. Atrial fibrillation. 5. Diabetes mellitus. 6. Asthma. 7. Congestive heart failure. 8. Gastroesophageal reflux disease. 9. Hysterectomy. ALLERGIES: NO KNOWN DRUG ALLERGIES. Current Medications Medications (Trade) Dose Ordered Sig/Carmen Route Start Time Stop Time Status Last Admin Diltiazem HCl 125 mg/Sodium Chloride 125 ml @ 5 mls/hr TITRATE PRN IV 05/19/17 19:45 Future Hold 05/20/17 15:32 (Duoneb Neb) 1 ampule Q4HR NEB PRN NEB 05/20/17 01:45 05/21/17 16:44 Azithromycin 500 mg/Sodium Chloride 250 ml @ 250 mls/hr Q24H IV 05/20/17 21:00 05/23/17 21:31 Ceftriaxone Sodium 1000 mg/ Sodium Chloride 100 ml @ 200 mls/hr Q24H IV 05/20/17 20:00 05/23/17 20:19 (NS Flush) 2 ml UNSCH PRN IV FLUSH 05/20/17 01:45 (NS Flush) 2 ml BID IV FLUSH 05/20/17 09:00 05/24/17 09:20 (Zofran Inj) 4 mg Q6H PRN IVP 05/20/17 01:45 (Narcan Inj) 0.4 mg UNSCH PRN IV PUSH 05/20/17 01:45 (Basilia-Colace) 1 tab BID PO 05/20/17 09:00 05/24/17 09:20 (Milk Of Magnesia Liq) 30 ml Q12H PRN PO 05/20/17 01:45 (Senokot) 17.2 mg Q12H PRN PO 05/20/17 01:45 (Dulcolax Supp) 10 mg DAILY PRN RECTAL 05/20/17 01:45 (Lactulose Liq) 30 ml DAILY PRN PO 05/20/17 01:45 (Symbicort 160-4.5 Mcg Inh) 1 puff Q12HR INH 05/20/17 09:00 05/24/17 09:21 (Lasix) 40 mg BID PO 05/20/17 09:00 05/24/17 09:20 (Neurontin) 100 mg TID PO 05/20/17 09:00 05/24/17 09:20 (Lopressor) 25 mg BID PO 05/20/17 09:00 05/24/17 09:20 (Percocet 5-325 Mg) 1 tab Q6H PRN PO 05/20/17 01:45 05/21/17 08:17 (KCl) 10 meq DAILY PO 05/20/17 09:00 05/24/17 09:20 (Zoloft) 100 mg DAILY PO 05/20/17 09:00 05/24/17 09:20 (Pravachol) 80 mg HS PO 05/20/17 21:00 05/23/17 20:20 (D50w (Vial) Inj) 50 ml UNSCH PRN IV PUSH 05/20/17 01:45 (Glucagon Inj) 1 mg UNSCH PRN OTHER 05/20/17 01:45 (Cardizem) 60 mg Q6HR PO 05/20/17 15:00 05/24/17 06:40 Miscellaneous Information Patient in critical care unit? Ass... Q361D .XX 05/20/17 20:30 05/20/17 20:30 (Chlorhexidine 2% Cloth) 3 pack DAILY@04 TOPICAL 05/21/17 04:00 05/25/17 04:01 05/24/17 04:00 (Chlorhexidine 2% Cloth) 3 pack UNSCH PRN TOPICAL 05/20/17 20:30 05/25/17 20:26 (NovoLOG SUPPLEMENTAL SCALE) 1 ACHS SLIDING SCALE SQ 05/23/17 17:00 05/24/17 09:25 (Coumadin) 5 mg DAILY@1600 PO 05/24/17 16:00 (Levemir Inj) 8 units DAILY SQ 05/24/17 09:00 05/24/17 09:00 (SoluMEDROL INJ) 40 mg Q12HR IV PUSH 05/24/17 21:00 UNV (Duoneb Neb) 1 ampule Q4HR NEB NEB 05/24/17 12:00 UNV (Duoneb Neb) 1 ampule Q2HR NEB PRN NEB 05/24/17 11:00 UNV OBJECTIVE: Vital Signs Date Time Temp Pulse Resp B/P (MAP) Pulse Ox O2 Delivery O2 Flow Rate FiO2 05/24/17 07:45 94 Nasal Cannula 5.00 05/24/17 06:00 93 05/24/17 04:00 95 05/24/17 04:00 98.4 88 31 143/80 (101) 94 05/24/17 02:00 83 05/24/17 02:00 93 05/24/17 00:00 98.0 82 21 150/79 (102) 94 05/24/17 00:00 82 05/23/17 22:00 77 05/23/17 20:00 92 05/23/17 20:00 97.7 92 28 133/63 (86) 92 05/23/17 19:49 93 Nasal Cannula 4.50 05/23/17 19:14 101 05/23/17 19:00 93 Nasal Cannula 5.00 05/23/17 19:00 93 05/23/17 18:00 88 05/23/17 16:00 92 05/23/17 16:00 98.6 92 30 150/71 (97) 97 05/23/17 15:00 94 05/23/17 14:00 88 05/23/17 14:00 88 28 145/71 (95) 95 05/23/17 13:00 88 30 148/84 (105) 96 05/23/17 13:00 88 05/23/17 12:00 98.4 86 26 162/81 (108) 92 05/23/17 12:00 86 05/23/17 11:10 93 Nasal Cannula 6.00 Vital Signs Date Time Temp Pulse Resp B/P (MAP) Pulse Ox O2 Delivery O2 Flow Rate FiO2 3/9/18 14:00 88 28 145/71 (95) 95 05/23/17 13:00 88 30 148/84 (105) 96 05/23/17 12:00 98.4 86 26 162/81 (108) 92 05/23/17 11:10 93 Nasal Cannula 6.00 05/23/17 11:00 81 26 164/85 (111) 96 05/23/17 10:00 88 28 146/74 (98) 96 05/23/17 09:02 100 27 143/70 (94) 88 05/23/17 09:00 98 30 96 05/23/17 08:00 98.8 85 24 159/75 (103) 94 05/23/17 07:00 98 Nasal Cannula 6.00 05/23/17 06:00 90 05/23/17 04:00 98.8 94 30 142/65 (90) 93 05/23/17 04:00 83 05/23/17 04:00 94 05/23/17 02:00 83 05/23/17 00:00 89 24 148/70 (96) 91 05/23/17 00:00 89 05/22/17 22:00 84 05/22/17 20:11 95 Nasal Cannula 6.00 05/22/17 20:00 98.3 86 29 161/77 (105) 95 05/22/17 20:00 86 05/22/17 20:00 86 05/22/17 19:01 86 05/22/17 19:00 95 Nasal Cannula 6.00 05/22/17 19:00 87 05/22/17 18:01 95 05/22/17 18:00 91 05/22/17 17:01 90 05/22/17 17:01 90 31 138/70 (92) 93 05/22/17 17:00 91 30 93 05/22/17 17:00 91 Laboratory Tests Test 05/22/17 14:29 05/23/17 04:00 05/24/17 04:25 Hemoglobin 10.8 GM/DL 11.3 GM/DL 11.3 GM/DL Hematocrit 31.2 % 33.8 % 34.5 % White Blood Count 7.8 TH/MM3 8.9 TH/MM3 Red Blood Count 4.40 MIL/MM3 4.49 MIL/MM3 Mean Corpuscular Volume 76.9 FL 76.9 FL Mean Corpuscular Hemoglobin 25.7 PG 25.0 PG Mean Corpuscular Hemoglobin Concent 33.5 % 32.6 % Red Cell Distribution Width 19.2 % 18.9 % Platelet Count 154 TH/MM3 144 TH/MM3 Mean Platelet Volume 9.6 FL 9.2 FL CBC Comment AUTO DIFF AUTO DIFF Differential Total Cells Counted 100 100 Neutrophils % (Manual) 88 % 86 % Band Neutrophils % 1 % 5 % Lymphocytes % 6 % 5 % Monocytes % 2 % 1 % Neutrophils # (Manual) 7.2 TH/MM3 8.4 TH/MM3 Metamyelocytes 3 % Differential Comment FINAL DIFF MANUAL FINAL DIFF MANUAL Platelet Estimate NORMAL LOW Platelet Morphology Comment NORMAL NORMAL Spherocytes 1+ Ovalocytes 1+ 1+ Neutrophils (%) (Auto) 90.3 % Lymphocytes (%) (Auto) 6.5 % Monocytes (%) (Auto) 3.1 % Eosinophils (%) (Auto) 0.0 % Basophils (%) (Auto) 0.1 % Neutrophils # (Auto) 8.0 TH/MM3 Lymphocytes # (Auto) 0.6 TH/MM3 Monocytes # (Auto) 0.3 TH/MM3 Eosinophils # (Auto) 0.0 TH/MM3 Basophils # (Auto) 0.0 TH/MM3 Myelocytes 3 % Basophilic Stippling FAINT Laboratory Tests Test 05/23/17 04:00 05/24/17 04:25 Blood Urea Nitrogen 40 MG/DL 38 MG/DL Creatinine 0.75 MG/DL 0.82 MG/DL Random Glucose 270 MG/DL 298 MG/DL Calcium Level 8.9 MG/DL 8.4 MG/DL Phosphorus Level 3.4 MG/DL Magnesium Level 2.0 MG/DL Sodium Level 141 MEQ/L 139 MEQ/L Potassium Level 4.6 MEQ/L 4.3 MEQ/L Chloride Level 103 MEQ/L 98 MEQ/L Carbon Dioxide Level 31.8 MEQ/L 36.2 MEQ/L Anion Gap 6 MEQ/L 5 MEQ/L Estimat Glomerular Filtration Rate 77 ML/MIN 69 ML/MIN Microbiology Date/Time Source Procedure Growth Status 05/22/17 11:43 Blood Peripheral Aerobic Blood Culture - Preliminary NO GROWTH IN 1 DAY Resulted 05/22/17 11:43 Blood Peripheral Anaerobic Blood Culture - Preliminary NO GROWTH IN 1 DAY Resulted 05/22/17 11:33 Blood Peripheral Aerobic Blood Culture - Preliminary NO GROWTH IN 1 DAY Resulted 05/22/17 11:33 Blood Peripheral Anaerobic Blood Culture - Preliminary NO GROWTH IN 1 DAY Resulted Microbiology Date/Time Source Procedure Growth Status 05/22/17 11:43 Blood Peripheral Aerobic Blood Culture - Preliminary NO GROWTH IN 1 DAY Resulted 05/22/17 11:43 Blood Peripheral Anaerobic Blood Culture - Preliminary NO GROWTH IN 1 DAY Resulted 05/22/17 11:33 Blood Peripheral Aerobic Blood Culture - Preliminary NO GROWTH IN 1 DAY Resulted 05/22/17 11:33 Blood Peripheral Anaerobic Blood Culture - Preliminary NO GROWTH IN 1 DAY Resulted 05/20/17 16:33 Nasal Aspirate Influenza Types A,B Antigen ([facility] [place]) - Final NEGATIVE FOR FLU A AND B ANTIGEN.... Complete IMAGING Chest X-Ray 05/22/17 0000 Signed Impressions: Service Date/Time: May 15:38 - CONCLUSION: Increasing parenchymal infiltrates throughout the left lung compared to the prior study. Jef Saldaña MD PHYSICAL EXAMINATION: GENERAL: No acute distress. Alert and oriented. Up in chair HEENT: The head is atraumatic. Extraocular movements grossly intact. Pupils reactive to light. No icterus. Oropharynx - moist mucosa without lesions. NECK: Supple, without lymphadenopathy. LUNGS: Decreased BS whole lung peralta HEART: Irregular rate and rhythm. No audible murmurs, rubs or gallops. ABDOMEN: Bowel sounds present. Soft, nontender. EXTREMITIES: No clubbing, cyanosis or edema. Brown discoloration of the skin of the distal tibias. SKIN: No rash. NEUROLOGIC: No gross focal findings. PSYCHIATRIC: Calm and cooperative. IMPRESSION: 1. Bacteremia due to Haemophilus influenzae and Staphylococcus coagulase-negative, source most likely pneumonia. 2. Left lung pneumonia. 3. Leukocytosis. 4. Chronic obstructive pulmonary disease. Appears stable. RECOMMENDATIONS: 1. Continue ceftriaxone. 2. Continue azithromycin. - change to po 3. Monitor repeat blood cultures. 4. Monitor clinical status. 5. Follow-up chest x-ray for monitoring lung infiltrates. I do not think it is necessary to begin treatments for the Staphylococcus coagulase-negative unless the repeat blood cultures are positive with the same organism. Clinically she appears to be improving and the white blood cell count has normalized. Pat Robertson MD May 24, 2017 11:07
[2017-05-24] MEDS: RESP: ALBUTEROL 2.5 MG/IPRATROPIUM 0.5 MG NEB (SCH) NEB ×4 (12:28→23:11)
[2017-05-24] MEDS: AZITHROMYCIN 250 MG TAB PO SCH (12:38)
--- NOTE | 2017-05-24 14:32 | PD.CARD.PN ---
Subjective Subjective Remarks No events overnight No chest pain SOB getting better Objective Medications Current Medications Medications (Trade) Dose Ordered Sig/Carmen Route Start Time Stop Time Status Last Admin Diltiazem HCl 125 mg/Sodium Chloride 125 ml @ 5 mls/hr TITRATE PRN IV 05/19/17 19:45 Future Hold 05/20/17 15:32 (Duoneb Neb) 1 ampule Q4HR NEB PRN NEB 05/20/17 01:45 05/21/17 16:44 Ceftriaxone Sodium 1000 mg/ Sodium Chloride 100 ml @ 200 mls/hr Q24H IV 05/20/17 20:00 05/23/17 20:19 (NS Flush) 2 ml UNSCH PRN IV FLUSH 05/20/17 01:45 (NS Flush) 2 ml BID IV FLUSH 05/20/17 09:00 05/24/17 09:20 (Zofran Inj) 4 mg Q6H PRN IVP 05/20/17 01:45 (Narcan Inj) 0.4 mg UNSCH PRN IV PUSH 05/20/17 01:45 (Basilia-Colace) 1 tab BID PO 05/20/17 09:00 05/24/17 09:20 (Milk Of Magnesia Liq) 30 ml Q12H PRN PO 05/20/17 01:45 (Senokot) 17.2 mg Q12H PRN PO 05/20/17 01:45 (Dulcolax Supp) 10 mg DAILY PRN RECTAL 05/20/17 01:45 (Lactulose Liq) 30 ml DAILY PRN PO 05/20/17 01:45 (Symbicort 160-4.5 Mcg Inh) 1 puff Q12HR INH 05/20/17 09:00 05/24/17 09:21 (Lasix) 40 mg BID PO 05/20/17 09:00 05/24/17 09:20 (Neurontin) 100 mg TID PO 05/20/17 09:00 05/24/17 12:38 (Lopressor) 25 mg BID PO 05/20/17 09:00 05/24/17 09:20 (Percocet 5-325 Mg) 1 tab Q6H PRN PO 05/20/17 01:45 05/21/17 08:17 (KCl) 10 meq DAILY PO 05/20/17 09:00 05/24/17 09:20 (Zoloft) 100 mg DAILY PO 05/20/17 09:00 05/24/17 09:20 (Pravachol) 80 mg HS PO 05/20/17 21:00 05/23/17 20:20 (D50w (Vial) Inj) 50 ml UNSCH PRN IV PUSH 05/20/17 01:45 (Glucagon Inj) 1 mg UNSCH PRN OTHER 05/20/17 01:45 (Cardizem) 60 mg Q6HR PO 05/20/17 15:00 05/24/17 12:38 Miscellaneous Information Patient in critical care unit? Ass... Q361D .XX 05/20/17 20:30 05/20/17 20:30 (Chlorhexidine 2% Cloth) 3 pack DAILY@04 TOPICAL 05/21/17 04:00 05/25/17 04:01 05/24/17 04:00 (Chlorhexidine 2% Cloth) 3 pack UNSCH PRN TOPICAL 05/20/17 20:30 05/25/17 20:26 (NovoLOG SUPPLEMENTAL SCALE) 1 ACHS SLIDING SCALE SQ 05/23/17 17:00 05/24/17 12:38 (Coumadin) 5 mg DAILY@1600 PO 05/24/17 16:00 (Levemir Inj) 8 units DAILY SQ 05/24/17 09:00 05/24/17 09:00 (SoluMEDROL INJ) 40 mg Q12HR IV PUSH 05/24/17 21:00 (Duoneb Neb) 1 ampule Q4HR NEB NEB 05/24/17 12:00 05/24/17 12:28 (Duoneb Neb) 1 ampule Q2HR NEB PRN NEB 05/24/17 11:00 (Zithromax) 500 mg DAILY PO 05/24/17 11:15 05/24/17 12:38 Vital Signs / I&O Vital Signs Date Time Temp Pulse Resp B/P (MAP) Pulse Ox O2 Delivery O2 Flow Rate FiO2 05/24/17 07:45 94 Nasal Cannula 5.00 05/24/17 06:00 93 05/24/17 04:00 95 05/24/17 04:00 98.4 88 31 143/80 (101) 94 05/24/17 02:00 83 05/24/17 02:00 93 05/24/17 00:00 98.0 82 21 150/79 (102) 94 05/24/17 00:00 82 05/23/17 22:00 77 05/23/17 20:00 92 05/23/17 20:00 97.7 92 28 133/63 (86) 92 05/23/17 19:49 93 Nasal Cannula 4.50 05/23/17 19:14 101 05/23/17 19:00 93 Nasal Cannula 5.00 05/23/17 19:00 93 05/23/17 18:00 88 05/23/17 16:00 92 05/23/17 16:00 98.6 92 30 150/71 (97) 97 05/23/17 15:00 94 I/O 05/23/17 05/23/17 05/23/17 05/24/17 05/24/17 05/24/17 07:00 15:00 23:00 07:00 15:00 23:00 Intake Total 1150 ml 1550 ml 150 ml Output Total 1200 ml 1100 ml 4 ml Balance -50 ml 450 ml 146 ml Intake Oral 800 ml 1200 ml 150 ml IV Total 350 ml 350 ml Output Urine Total 1200 ml 1100 ml 4 ml # Bowel Movements 1 0 0 Physical Exam GENERAL: NAD SKIN: Warm and dry. HEAD: Atraumatic. Normocephalic. EYES: Pupils equal and round. No scleral icterus. No injection or drainage. ENT: No nasal bleeding or discharge. Mucous membranes pink and moist. NECK: Trachea midline. No JVD. CARDIOVASCULAR: Irregularly irregular RESPIRATORY: No accessory muscle use. Decreased breath sounds bilaterally GASTROINTESTINAL: Abdomen soft, non-tender, nondistended. Hepatic and splenic margins not palpable. MUSCULOSKELETAL: 2+ edema, chronic in nature NEUROLOGICAL: Awake and alert. No obvious cranial nerve deficits. Motor grossly within normal limits. Five out of 5 muscle strength in the arms and legs. Normal speech. PSYCHIATRIC: Appropriate mood and affect; insight and judgment normal. Laboratory Laboratory Tests Test 05/24/17 04:25 White Blood Count 8.9 TH/MM3 Red Blood Count 4.49 MIL/MM3 Hemoglobin 11.3 GM/DL Hematocrit 34.5 % Mean Corpuscular Volume 76.9 FL Mean Corpuscular Hemoglobin 25.0 PG Mean Corpuscular Hemoglobin Concent 32.6 % Red Cell Distribution Width 18.9 % Platelet Count 144 TH/MM3 Mean Platelet Volume 9.2 FL Neutrophils (%) (Auto) 90.3 % Lymphocytes (%) (Auto) 6.5 % Monocytes (%) (Auto) 3.1 % Eosinophils (%) (Auto) 0.0 % Basophils (%) (Auto) 0.1 % Neutrophils # (Auto) 8.0 TH/MM3 Lymphocytes # (Auto) 0.6 TH/MM3 Monocytes # (Auto) 0.3 TH/MM3 Eosinophils # (Auto) 0.0 TH/MM3 Basophils # (Auto) 0.0 TH/MM3 CBC Comment AUTO DIFF Differential Total Cells Counted 100 Neutrophils % (Manual) 86 % Band Neutrophils % 5 % Lymphocytes % 5 % Monocytes % 1 % Neutrophils # (Manual) 8.4 TH/MM3 Myelocytes 3 % Differential Comment FINAL DIFF MANUAL Platelet Estimate LOW Platelet Morphology Comment NORMAL Basophilic Stippling FAINT Ovalocytes 1+ Prothrombin Time 19.0 SEC Prothromb Time International Ratio 1.9 RATIO Blood Urea Nitrogen 38 MG/DL Creatinine 0.82 MG/DL Random Glucose 298 MG/DL Calcium Level 8.4 MG/DL Sodium Level 139 MEQ/L Potassium Level 4.3 MEQ/L Chloride Level 98 MEQ/L Carbon Dioxide Level 36.2 MEQ/L Anion Gap 5 MEQ/L Estimat Glomerular Filtration Rate 69 ML/MIN Assessment and Plan Problem List: (1) COPD exacerbation ICD Codes: J44.1 - Chronic obstructive pulmonary disease with (acute) exacerbation (2) Chronic systolic CHF (congestive heart failure) ICD Codes: I50.22 - Chronic systolic (congestive) heart failure (3) Atrial fibrillation with RVR ICD Codes: I48.91 - Unspecified atrial fibrillation Status: Acute (4) Hypertension ICD Codes: I10 - Essential (primary) hypertension (5) Hyperlipidemia ICD Codes: E78.5 - Hyperlipidemia, unspecified (6) Diabetes mellitus ICD Codes: E11.9 - Type 2 diabetes mellitus without complications (7) Shortness of breath ICD Codes: R06.02 - Shortness of breath Status: Acute Assessment and Plan 1) Afib now with CVR Con't Cardizem PO RVR may be due to increased sympathetics 2) PNA/COPD per primary/pulm 3) EF 30-35% Con't BB, will add CYNTHIA-I once more stable as blood pressure borderline low 4) Drop in Hgb Plan for Hemoccult stool 5) INR elevated ? secondary to Coumadin with anti-biotics Since has normalized Bong Tinsley DO May 24, 2017 14:32
[2017-05-24] MEDS ORDERED: WARFARIN SOD 5 MG TAB PO SCH (16:00)
[2017-05-25] VITALS (19 sets, daily range): BP systolic 130–161; BP diastolic 58–84; PULSE 90–126; RESP 20–35; TEMP 97.7–98.5; O2SAT 88–100
[2017-05-25] MEDS: PRAVASTATIN SOD 40 MG TAB PO SCH ×2 (01:04→20:00)
[2017-05-25] MEDS: methylPREDNISolone SOD SUCC 40 MG/1 ML VIAL IV PUSH SCH ×3 (01:04→19:59)
[2017-05-25] MEDS: DILTIAZEM HCL 60 MG TAB PO SCH ×5 (01:04→23:33)
[2017-05-25] MEDS: METOPROLOL TARTRATE 25 MG TAB PO SCH ×3 (01:04→20:00)
[2017-05-25] MEDS: DOCUSATE SODIUM 50 MG/SENNA 8.6 MG TAB PO SCH ×3 (01:04→20:00)
[2017-05-25] MEDS: FUROSEMIDE 40 MG TAB PO SCH ×3 (01:05→20:00)
[2017-05-25] MEDS: BUDESONIDE-FORMOTEROL 160/4.5 MCG INHALER INH SCH ×3 (01:05→20:00)
[2017-05-25] MEDS: SODIUM CHLORIDE 0.9% FLUSH 10 ML FLUSH IV FLUSH SCH ×3 (01:09→20:01)
[2017-05-25] MEDS: cefTRIAXone INJ 1,000 MG in SODIUM CHLORIDE 0.9% INJ 100 ML IV SCH ×2 (01:16→19:59)
[2017-05-25] MEDS: INSULIN ASPART SUPPLEMENTAL SCALE SQ SCH ×5 (01:22→20:03)
[2017-05-25] MEDS: RESP: ALBUTEROL 2.5 MG/IPRATROPIUM 0.5 MG NEB (SCH) NEB ×5 (03:38→20:00)
[2017-05-25] MEDS: CHLORHEXIDINE GLUCONATE 2 % 1 PACK (2 CLOTHS)(taper/protocol) TOPICAL SCH (04:00)
[2017-05-25 04:58] LABS: INTERNATIONAL NORMALIZED RATIO 1.3 RATIO; PROTHROMBIN TIME - PATIENT 13.5 SEC (9.8-11.6)
[2017-05-25] MEDS: AZITHROMYCIN 250 MG TAB PO SCH (09:10)
[2017-05-25] MEDS: SERTRALINE HCL 100 MG TAB PO SCH (09:11)
[2017-05-25] MEDS: GABAPENTIN 100 MG CAP PO SCH ×3 (09:11→17:09)
[2017-05-25] MEDS: INSULIN DETEMIR 100 UNITS/ML VIAL SQ SCH (09:12)
[2017-05-25] MEDS: POTASSIUM CHLORIDE 10 MEQ CAP PO SCH (09:18)
--- NOTE | 2017-05-25 09:54 | HHI.PR ---
Subjective Remarks Patient is now on 3L oxygen with good sats. Afebrile, looks comfortable. Objective Vital Signs Vital Signs Date Time Temp Pulse Resp B/P (MAP) Pulse Ox O2 Delivery O2 Flow Rate FiO2 05/25/17 08:00 96 Nasal Cannula 3.00 05/25/17 06:00 92 05/25/17 04:00 90 05/25/17 04:00 98.0 90 21 132/61 (84) 95 05/25/17 02:00 100 05/25/17 00:00 94 05/25/17 00:00 97.7 99 26 161/69 (99) 93 05/24/17 22:00 97 05/24/17 20:13 95 Nasal Cannula 4.00 05/24/17 20:00 97.6 95 33 136/89 (105) 86 05/24/17 20:00 100 05/24/17 19:00 93 Nasal Cannula 4.00 05/24/17 16:00 87 24 140/77 (98) 95 05/24/17 15:00 87 22 138/75 (96) 92 05/24/17 14:08 101 31 148/74 (98) 90 05/24/17 13:01 101 27 162/74 (103) 93 05/24/17 12:01 97.9 89 30 176/76 (109) 94 05/24/17 11:00 94 34 151/77 (101) 92 05/24/17 10:00 99 28 143/71 (95) 92 I/O 05/24/17 05/24/17 05/24/17 05/25/17 05/25/17 05/25/17 07:00 15:00 23:00 07:00 15:00 23:00 Intake Total 150 ml 900 ml 220 ml Output Total 4 ml 800 ml Balance 146 ml 900 ml -580 ml Intake Oral 150 ml 900 ml 120 ml IV Total 100 ml Output Urine Total 4 ml 800 ml # Bowel Movements 0 1 Result Diagram: 05/24/17 0425 05/24/17 0425 Other Results Last Impressions Chest X-Ray 05/22/17 0000 Signed Impressions: Service Date/Time: May 15:38 - CONCLUSION: Increasing parenchymal infiltrates throughout the left lung compared to the prior study. Jef Saldaña MD Objective Remarks GENERAL: Patient is on 3L oxygen with good sats SKIN: Warm and dry. HEAD: Normocephalic. EYES: No scleral icterus. No injection or drainage. NECK: Supple, trachea midline. No JVD or lymphadenopathy. CARDIOVASCULAR: Regular rate and rhythm without murmurs, gallops, or rubs. RESPIRATORY: Breath sounds equal bilaterally. No accessory muscle use. GASTROINTESTINAL: Abdomen soft, non-tender, nondistended. MUSCULOSKELETAL: No cyanosis, + edema, chronic venous stasis Neuro: awake and alert A/P Assessment and Plan 1)Resp Insuff 2)COPD exac 3)Haemophilus Influenza Bacteremia 3)AFIB 4)HTN 5)CHF PLAN Wean down oxygen as marilee keep sats >92% Bronchodilators ( DuoNeb, Symbicort) NIPPV PRN for resp distress taper steroids- solumederol 40mg Q12 Check CXR Continue with diuretics- on Lasix 40mg BID Echo showed EF 30-35% Continue with abx ( Rocephin, Zithromax) ID is following 05/19 BC: Haemophilus Influenza. Coag negative staph, BC 05/22: NGTD GI/DVT prophylaxis- On Coumadin- monitor INR Continue treatment plan Shahid Farias MD May 25, 2017 09:54
--- NOTE | 2017-05-25 11:00 | RADRPT ---
EXAM DATE/TIME: 05/25/2017 10:01 [facility] COMPARISON: CHEST SINGLE AP, May 22, 2017, 15:38. INDICATIONS : Follow up pneumonia. MEDICAL HISTORY : Chronic obstructive pulmonary disease. Diabetes mellitus type II. Afib SURGICAL HISTORY : None. ENCOUNTER: Subsequent ACUITY: 1 week PAIN SCORE: 0/10 LOCATION: Bilateral chest FINDINGS: Interval improvement in the appearance of the lungs is noted. There is decreasing airspace disease in the left lung. The right lung remains clear. Heart remains moderately enlarged. CONCLUSION: Improving chest with resolving left-sided airspace disease. John James MD on May 25, 2017 at 10:58 Board Certified Radiologist. This report was verified electronically.
--- NOTE | 2017-05-25 14:00 | PD.CARD.PN ---
Subjective Subjective Remarks No events overnight No chest pain SOB getting better Heart rates around 100 Objective Medications Current Medications Medications (Trade) Dose Ordered Sig/Carmen Route Start Time Stop Time Status Last Admin Diltiazem HCl 125 mg/Sodium Chloride 125 ml @ 5 mls/hr TITRATE PRN IV 05/19/17 19:45 Future Hold 05/20/17 15:32 (Duoneb Neb) 1 ampule Q4HR NEB PRN NEB 05/20/17 01:45 05/21/17 16:44 Ceftriaxone Sodium 1000 mg/ Sodium Chloride 100 ml @ 200 mls/hr Q24H IV 05/20/17 20:00 05/25/17 01:16 (NS Flush) 2 ml UNSCH PRN IV FLUSH 05/20/17 01:45 (NS Flush) 2 ml BID IV FLUSH 05/20/17 09:00 05/25/17 09:11 (Zofran Inj) 4 mg Q6H PRN IVP 05/20/17 01:45 (Narcan Inj) 0.4 mg UNSCH PRN IV PUSH 05/20/17 01:45 (Basilia-Colace) 1 tab BID PO 05/20/17 09:00 05/25/17 01:04 (Milk Of Magnesia Liq) 30 ml Q12H PRN PO 05/20/17 01:45 (Senokot) 17.2 mg Q12H PRN PO 05/20/17 01:45 (Dulcolax Supp) 10 mg DAILY PRN RECTAL 05/20/17 01:45 (Lactulose Liq) 30 ml DAILY PRN PO 05/20/17 01:45 (Symbicort 160-4.5 Mcg Inh) 1 puff Q12HR INH 05/20/17 09:00 05/25/17 09:00 (Lasix) 40 mg BID PO 05/20/17 09:00 05/25/17 09:11 (Neurontin) 100 mg TID PO 05/20/17 09:00 05/25/17 12:41 (Lopressor) 25 mg BID PO 05/20/17 09:00 05/25/17 09:10 (Percocet 5-325 Mg) 1 tab Q6H PRN PO 05/20/17 01:45 05/21/17 08:17 (KCl) 10 meq DAILY PO 05/20/17 09:00 05/25/17 09:18 (Zoloft) 100 mg DAILY PO 05/20/17 09:00 05/25/17 09:11 (Pravachol) 80 mg HS PO 05/20/17 21:00 05/25/17 01:04 (D50w (Vial) Inj) 50 ml UNSCH PRN IV PUSH 05/20/17 01:45 (Glucagon Inj) 1 mg UNSCH PRN OTHER 05/20/17 01:45 (Cardizem) 60 mg Q6HR PO 05/20/17 15:00 05/25/17 12:41 Miscellaneous Information Patient in critical care unit? Ass... Q361D .XX 05/20/17 20:30 05/20/17 20:30 (Chlorhexidine 2% Cloth) 3 pack UNSCH PRN TOPICAL 05/20/17 20:30 05/25/17 20:26 (NovoLOG SUPPLEMENTAL SCALE) 1 ACHS SLIDING SCALE SQ 05/23/17 17:00 05/25/17 12:41 (Coumadin) 5 mg DAILY@1600 PO 05/24/17 16:00 05/24/17 16:35 (Levemir Inj) 8 units DAILY SQ 05/24/17 09:00 05/25/17 09:12 (SoluMEDROL INJ) 40 mg Q12HR IV PUSH 05/24/17 21:00 05/25/17 09:11 (Duoneb Neb) 1 ampule Q4HR NEB NEB 05/24/17 12:00 05/25/17 11:11 (Duoneb Neb) 1 ampule Q2HR NEB PRN NEB 05/24/17 11:00 (Zithromax) 500 mg DAILY PO 05/24/17 11:15 05/25/17 09:10 Vital Signs / I&O Vital Signs Date Time Temp Pulse Resp B/P (MAP) Pulse Ox O2 Delivery O2 Flow Rate FiO2 05/25/17 08:00 96 Nasal Cannula 3.00 05/25/17 06:00 92 05/25/17 04:00 90 05/25/17 04:00 98.0 90 21 132/61 (84) 95 05/25/17 02:00 100 05/25/17 00:00 94 05/25/17 00:00 97.7 99 26 161/69 (99) 93 05/24/17 22:00 97 05/24/17 20:13 95 Nasal Cannula 4.00 05/24/17 20:00 97.6 95 33 136/89 (105) 86 05/24/17 20:00 100 05/24/17 19:00 93 Nasal Cannula 4.00 05/24/17 16:00 87 24 140/77 (98) 95 05/24/17 15:00 87 22 138/75 (96) 92 05/24/17 14:08 101 31 148/74 (98) 90 I/O 05/24/17 05/24/17 05/24/17 05/25/17 05/25/17 05/25/17 07:00 15:00 23:00 07:00 15:00 23:00 Intake Total 150 ml 900 ml 220 ml Output Total 4 ml 800 ml Balance 146 ml 900 ml -580 ml Intake Oral 150 ml 900 ml 120 ml IV Total 100 ml Output Urine Total 4 ml 800 ml # Bowel Movements 0 1 Physical Exam GENERAL: NAD SKIN: Warm and dry. HEAD: Atraumatic. Normocephalic. EYES: Pupils equal and round. No scleral icterus. No injection or drainage. ENT: No nasal bleeding or discharge. Mucous membranes pink and moist. NECK: Trachea midline. No JVD. CARDIOVASCULAR: Irregularly irregular RESPIRATORY: No accessory muscle use. Decreased breath sounds bilaterally GASTROINTESTINAL: Abdomen soft, non-tender, nondistended. Hepatic and splenic margins not palpable. MUSCULOSKELETAL: 2+ edema, chronic in nature NEUROLOGICAL: Awake and alert. No obvious cranial nerve deficits. Motor grossly within normal limits. Five out of 5 muscle strength in the arms and legs. Normal speech. PSYCHIATRIC: Appropriate mood and affect; insight and judgment normal. Laboratory Laboratory Tests Test 05/25/17 04:21 Prothrombin Time 13.5 SEC Prothromb Time International Ratio 1.3 RATIO Imaging Last 24 hours Impressions Chest X-Ray 05/25/17 0998 Signed Impressions: Service Date/Time: Thursday, May 25, 2017 10:01 - CONCLUSION: Improving chest with resolving left-sided airspace disease. John James MD Assessment and Plan Problem List: (1) COPD exacerbation ICD Codes: J44.1 - Chronic obstructive pulmonary disease with (acute) exacerbation (2) Chronic systolic CHF (congestive heart failure) ICD Codes: I50.22 - Chronic systolic (congestive) heart failure (3) Atrial fibrillation with RVR ICD Codes: I48.91 - Unspecified atrial fibrillation Status: Acute (4) Hypertension ICD Codes: I10 - Essential (primary) hypertension (5) Hyperlipidemia ICD Codes: E78.5 - Hyperlipidemia, unspecified (6) Diabetes mellitus ICD Codes: E11.9 - Type 2 diabetes mellitus without complications (7) Shortness of breath ICD Codes: R06.02 - Shortness of breath Status: Acute Assessment and Plan 1) Afib now with CVR Con't Cardizem/Metoprolol, if further elevation will increase therapy RVR may be due to increased sympathetics 2) PNA/COPD per primary/pulm 3) EF 30-35% Con't BB, will add CYNTHIA-I once more stable as blood pressure borderline low 4) Drop in Hgb Plan for Hemoccult stool 5) INR elevated ? secondary to Coumadin with anti-biotics Since has normalized Bong Tinsley DO May 25, 2017 14:00
--- NOTE | 2017-05-25 16:12 | HHI.PR ---
Subjective Remarks Follow-up sepsis, bacteremia, pneumonia. The patient states that she is doing better today. Still has cough, but denies chest pain. Heart rate increases to the 120s with activity. Objective Vitals Vital Signs Date Time Temp Pulse Resp B/P (MAP) Pulse Ox O2 Delivery O2 Flow Rate FiO2 05/25/17 15:00 94 20 138/63 (88) 94 05/25/17 14:00 101 26 154/77 (102) 94 05/25/17 13:00 99 29 146/68 (94) 88 05/25/17 12:00 98.4 110 27 138/67 (90) 92 05/25/17 11:11 99 28 130/73 (92) 94 05/25/17 11:00 105 27 05/25/17 10:00 98 31 145/76 (99) 100 05/25/17 09:00 95 29 142/81 (101) 92 05/25/17 08:00 96 Nasal Cannula 3.00 05/25/17 08:00 98.3 93 33 147/67 (93) 95 05/25/17 07:00 Nasal Cannula 4.00 05/25/17 06:00 92 05/25/17 04:00 90 05/25/17 04:00 98.0 90 21 132/61 (84) 95 05/25/17 02:00 100 05/25/17 00:00 94 05/25/17 00:00 97.7 99 26 161/69 (99) 93 05/24/17 22:00 97 05/24/17 20:13 95 Nasal Cannula 4.00 05/24/17 20:00 97.6 95 33 136/89 (105) 86 05/24/17 20:00 100 05/24/17 19:00 93 Nasal Cannula 4.00 I/O 05/24/17 05/24/17 05/24/17 05/25/17 05/25/17 05/25/17 07:00 15:00 23:00 07:00 15:00 23:00 Intake Total 150 ml 900 ml 220 ml Output Total 4 ml 800 ml Balance 146 ml 900 ml -580 ml Intake Oral 150 ml 900 ml 120 ml IV Total 100 ml Output Urine Total 4 ml 800 ml # Bowel Movements 0 1 Result Diagram: 05/24/17 0425 05/24/17424 Imaging Last Impressions Chest X-Ray 05/25/17 0948 Signed Impressions: Service Date/Time: Thursday, May 25, 2017 10:01 - CONCLUSION: Improving chest with resolving left-sided airspace disease. John James MD Objective Remarks General: Obese female in no acute distress. Heart: Irregular, tachycardic. No murmur. Lungs: Decreased breath sounds throughout. No wheezes noted. Breathing is nonlabored. Abdomen: Soft, nontender, nondistended. Extremities: Chronic bilateral lower extremity edema with venous stasis changes. Psych: Alert, oriented. Procedures None Urinary Catheter: No Vascular Central Line Catheter: No A/P Problem List: (1) COPD exacerbation ICD Code: J44.1 - Chronic obstructive pulmonary disease with (acute) exacerbation (2) Diabetes mellitus ICD Code: E11.9 - Type 2 diabetes mellitus without complications (3) Chronic systolic CHF (congestive heart failure) ICD Code: I50.22 - Chronic systolic (congestive) heart failure (4) Hypertension ICD Code: I10 - Essential (primary) hypertension (5) Hyperlipidemia ICD Code: E78.5 - Hyperlipidemia, unspecified (6) Atrial fibrillation with RVR ICD Code: I48.91 - Unspecified atrial fibrillation Status: Acute (7) Pneumonia ICD Code: J18.9 - Pneumonia, unspecified organism Status: Acute (8) Shortness of breath ICD Code: R06.02 - Shortness of breath Status: Acute (9) Sepsis ICD Code: A41.9 - Sepsis, unspecified organism (10) Acute kidney injury ICD Code: N17.9 - Acute kidney failure, unspecified Assessment and Plan 1. Atrial fibrillation with RVR: Transitioned from Cardizem drip to oral Cardizem. Rate improved at rest, but she becomes tachycardic to the 120s with any activity. Appreciate cardiology recommendations. Anticoagulation with Coumadin. 2. Sepsis, pneumonia, bacteremia: Patient met criteria for sepsis upon admission with tachycardia, leukocytosis. Continue antibiotics. Continue supplemental oxygen. Blood cultures growing Haemophilus influenza and coag negative Staphylococcus. Appreciate infectious disease recommendations. Repeat blood cultures are negative so far. 3. COPD exacerbation with acute respiratory failure: Continue supplemental oxygen, bronchodilators, steroids. Appreciate pulmonology recommendations. 4. Chronic systolic congestive heart failure: Continue Lasix. Echocardiogram shows EF 30-35%. Appreciate cardiology recommendations. Monitor strict intake/ output. 5. Diabetes mellitus: Monitor Accu-Cheks and cover with sliding scale insulin. 6. Hyperlipidemia: Continue statin. 7. Acute kidney injury: Improved. Urine output has improved. 8. DVT prophylaxis: Coumadin on hold secondary to supratherapeutic INR. 9. CODE STATUS: Full code. 10. Anemia: H&H improving. No reported bleeding. Stool Hemoccult ordered. 11. Over-anticoagulation with Coumadin: Improved. INR 1.3 today. Continue Coumadin. Problem Qualifiers (1) Pneumonia: Qualified Codes: J18.1 - Lobar pneumonia, unspecified organism Chapin Greene MD May 25, 2017 16:11
--- NOTE | 2017-05-25 16:17 | HHI.IDPN ---
Note Infectious Disease Note ID COVERAGE 67-year-old white female who has a history of asthma and COPD. The patient developed cough three days before presenting to the emergency department. She has home nurse caregivers. She was noted by her home nurse caregiver to be wheezing more than usual three days before presenting to the emergency department. She was evaluated in the emergency department and at that time she was noted to have elevated heart rate of 140 and was in atrial fibrillation. She has a history of atrial fibrillation. The patient had a 2-D echocardiogram which showed moderate mitral regurgitation and mild to moderate tricuspid valve regurgitation and also moderate pulmonary hypertension. Notes reviewed Temps ok Breathing is better On nasal O2 Repeat CXR improving infiltrates States she uses O2 at home all the time No N/V Swallowing ok Repeat BC negative PAST HISTORY: 1. COPD. The patient uses home oxygen. 2. Hypertension. 3. Hyperlipidemia. 4. Atrial fibrillation. 5. Diabetes mellitus. 6. Asthma. 7. Congestive heart failure. 8. Gastroesophageal reflux disease. 9. Hysterectomy. ALLERGIES: NO KNOWN DRUG ALLERGIES. Current Medications Medications (Trade) Dose Ordered Sig/Carmen Route Start Time Stop Time Status Last Admin Diltiazem HCl 125 mg/Sodium Chloride 125 ml @ 5 mls/hr TITRATE PRN IV 05/19/17 19:45 Future Hold 05/20/17 15:32 (Duoneb Neb) 1 ampule Q4HR NEB PRN NEB 05/20/17 01:45 05/21/17 16:44 Ceftriaxone Sodium 1000 mg/ Sodium Chloride 100 ml @ 200 mls/hr Q24H IV 05/20/17 20:00 05/25/17 01:16 (NS Flush) 2 ml UNSCH PRN IV FLUSH 05/20/17 01:45 (NS Flush) 2 ml BID IV FLUSH 05/20/17 09:00 05/25/17 09:11 (Zofran Inj) 4 mg Q6H PRN IVP 05/20/17 01:45 (Narcan Inj) 0.4 mg UNSCH PRN IV PUSH 05/20/17 01:45 (Basilia-Colace) 1 tab BID PO 05/20/17 09:00 05/25/17 01:04 (Milk Of Magnesia Liq) 30 ml Q12H PRN PO 05/20/17 01:45 (Senokot) 17.2 mg Q12H PRN PO 05/20/17 01:45 (Dulcolax Supp) 10 mg DAILY PRN RECTAL 05/20/17 01:45 (Lactulose Liq) 30 ml DAILY PRN PO 05/20/17 01:45 (Symbicort 160-4.5 Mcg Inh) 1 puff Q12HR INH 05/20/17 09:00 05/25/17 09:00 (Lasix) 40 mg BID PO 05/20/17 09:00 05/25/17 09:11 (Neurontin) 100 mg TID PO 05/20/17 09:00 05/25/17 12:41 (Lopressor) 25 mg BID PO 05/20/17 09:00 05/25/17 09:10 (Percocet 5-325 Mg) 1 tab Q6H PRN PO 05/20/17 01:45 05/21/17 08:17 (KCl) 10 meq DAILY PO 05/20/17 09:00 05/25/17 09:18 (Zoloft) 100 mg DAILY PO 05/20/17 09:00 05/25/17 09:11 (Pravachol) 80 mg HS PO 05/20/17 21:00 05/25/17 01:04 (D50w (Vial) Inj) 50 ml UNSCH PRN IV PUSH 05/20/17 01:45 (Glucagon Inj) 1 mg UNSCH PRN OTHER 05/20/17 01:45 (Cardizem) 60 mg Q6HR PO 05/20/17 15:00 05/25/17 12:41 Miscellaneous Information Patient in critical care unit? Ass... Q361D .XX 05/20/17 20:30 05/20/17 20:30 (Chlorhexidine 2% Cloth) 3 pack UNSCH PRN TOPICAL 05/20/17 20:30 05/25/17 20:26 (NovoLOG SUPPLEMENTAL SCALE) 1 ACHS SLIDING SCALE SQ 05/23/17 17:00 05/25/17 12:41 (Levemir Inj) 8 units DAILY SQ 05/24/17 09:00 05/25/17 09:12 (SoluMEDROL INJ) 40 mg Q12HR IV PUSH 05/24/17 21:00 05/25/17 09:11 (Duoneb Neb) 1 ampule Q4HR NEB NEB 05/24/17 12:00 05/25/17 11:11 (Duoneb Neb) 1 ampule Q2HR NEB PRN NEB 05/24/17 11:00 (Zithromax) 500 mg DAILY PO 05/24/17 11:15 05/25/17 09:10 (Coumadin) 7.5 mg DAILY@1600 PO 05/26/17 16:00 UNV OBJECTIVE: Vital Signs Date Time Temp Pulse Resp B/P (MAP) Pulse Ox O2 Delivery O2 Flow Rate FiO2 05/25/17 15:00 94 20 138/63 (88) 94 05/25/17 14:00 101 26 154/77 (102) 94 05/25/17 13:00 99 29 146/68 (94) 88 05/25/17 12:00 98.4 110 27 138/67 (90) 92 05/25/17 11:11 99 28 130/73 (92) 94 05/25/17 11:00 105 27 05/25/17 10:00 98 31 145/76 (99) 100 05/25/17 09:00 95 29 142/81 (101) 92 05/25/17 08:00 96 Nasal Cannula 3.00 05/25/17 08:00 98.3 93 33 147/67 (93) 95 05/25/17 07:00 Nasal Cannula 4.00 05/25/17 06:00 92 05/25/17 04:00 90 05/25/17 04:00 98.0 90 21 132/61 (84) 95 05/25/17 02:00 100 05/25/17 00:00 94 05/25/17 00:00 97.7 99 26 161/69 (99) 93 05/24/17 22:00 97 05/24/17 20:13 95 Nasal Cannula 4.00 05/24/17 20:00 97.6 95 33 136/89 (105) 86 05/24/17 20:00 100 05/24/17 19:00 93 Nasal Cannula 4.00 Vital Signs Date Time Temp Pulse Resp B/P (MAP) Pulse Ox O2 Delivery O2 Flow Rate FiO2 05/24/17 07:45 94 Nasal Cannula 5.00 05/24/17 06:00 93 05/24/17 04:00 95 05/24/17 04:00 98.4 88 31 143/80 (101) 94 05/24/17 02:00 83 05/24/17 02:00 93 05/24/17 00:00 98.0 82 21 150/79 (102) 94 05/24/17 00:00 82 05/23/17 22:00 77 05/23/17 20:00 92 05/23/17 20:00 97.7 92 28 133/63 (86) 92 05/23/17 19:49 93 Nasal Cannula 4.50 05/23/17 19:14 101 05/23/17 19:00 93 Nasal Cannula 5.00 05/23/17 19:00 93 05/23/17 18:00 88 05/23/17 16:00 92 05/23/17 16:00 98.6 92 30 150/71 (97) 97 05/23/17 15:00 94 05/23/17 14:00 88 05/23/17 14:00 88 28 145/71 (95) 95 05/23/17 13:00 88 30 148/84 (105) 96 05/23/17 13:00 88 05/23/17 12:00 98.4 86 26 162/81 (108) 92 05/23/17 12:00 86 05/23/17 11:10 93 Nasal Cannula 6.00 Laboratory Tests Test 05/22/17 14:29 05/23/17 04:00 05/24/17 04:25 Hemoglobin 10.8 GM/DL 11.3 GM/DL 11.3 GM/DL Hematocrit 31.2 % 33.8 % 34.5 % White Blood Count 7.8 TH/MM3 8.9 TH/MM3 Red Blood Count 4.40 MIL/MM3 4.49 MIL/MM3 Mean Corpuscular Volume 76.9 FL 76.9 FL Mean Corpuscular Hemoglobin 25.7 PG 25.0 PG Mean Corpuscular Hemoglobin Concent 33.5 % 32.6 % Red Cell Distribution Width 19.2 % 18.9 % Platelet Count 154 TH/MM3 144 TH/MM3 Mean Platelet Volume 9.6 FL 9.2 FL CBC Comment AUTO DIFF AUTO DIFF Differential Total Cells Counted 100 100 Neutrophils % (Manual) 88 % 86 % Band Neutrophils % 1 % 5 % Lymphocytes % 6 % 5 % Monocytes % 2 % 1 % Neutrophils # (Manual) 7.2 TH/MM3 8.4 TH/MM3 Metamyelocytes 3 % Differential Comment FINAL DIFF MANUAL FINAL DIFF MANUAL Platelet Estimate NORMAL LOW Platelet Morphology Comment NORMAL NORMAL Spherocytes 1+ Ovalocytes 1+ 1+ Neutrophils (%) (Auto) 90.3 % Lymphocytes (%) (Auto) 6.5 % Monocytes (%) (Auto) 3.1 % Eosinophils (%) (Auto) 0.0 % Basophils (%) (Auto) 0.1 % Neutrophils # (Auto) 8.0 TH/MM3 Lymphocytes # (Auto) 0.6 TH/MM3 Monocytes # (Auto) 0.3 TH/MM3 Eosinophils # (Auto) 0.0 TH/MM3 Basophils # (Auto) 0.0 TH/MM3 Myelocytes 3 % Basophilic Stippling FAINT Laboratory Tests Test 05/23/17 04:00 05/24/17 04:25 Blood Urea Nitrogen 40 MG/DL 38 MG/DL Creatinine 0.75 MG/DL 0.82 MG/DL Random Glucose 270 MG/DL 298 MG/DL Calcium Level 8.9 MG/DL 8.4 MG/DL Phosphorus Level 3.4 MG/DL Magnesium Level 2.0 MG/DL Sodium Level 141 MEQ/L 139 MEQ/L Potassium Level 4.6 MEQ/L 4.3 MEQ/L Chloride Level 103 MEQ/L 98 MEQ/L Carbon Dioxide Level 31.8 MEQ/L 36.2 MEQ/L Anion Gap 6 MEQ/L 5 MEQ/L Estimat Glomerular Filtration Rate 77 ML/MIN 69 ML/MIN Microbiology Date/Time Source Procedure Growth Status 05/22/17 11:43 Blood Peripheral Aerobic Blood Culture - Preliminary NO GROWTH IN 1 DAY Resulted 05/22/17 11:43 Blood Peripheral Anaerobic Blood Culture - Preliminary NO GROWTH IN 1 DAY Resulted 05/22/17 11:33 Blood Peripheral Aerobic Blood Culture - Preliminary NO GROWTH IN 1 DAY Resulted 05/22/17 11:33 Blood Peripheral Anaerobic Blood Culture - Preliminary NO GROWTH IN 1 DAY Resulted Microbiology Date/Time Source Procedure Growth Status 05/22/17 11:43 Blood Peripheral Aerobic Blood Culture - Preliminary NO GROWTH IN 1 DAY Resulted 05/22/17 11:43 Blood Peripheral Anaerobic Blood Culture - Preliminary NO GROWTH IN 1 DAY Resulted 05/22/17 11:33 Blood Peripheral Aerobic Blood Culture - Preliminary NO GROWTH IN 1 DAY Resulted 05/22/17 11:33 Blood Peripheral Anaerobic Blood Culture - Preliminary NO GROWTH IN 1 DAY Resulted 05/20/17 16:33 Nasal Aspirate Influenza Types A,B Antigen ([facility] [place]) - Final NEGATIVE FOR FLU A AND B ANTIGEN.... Complete IMAGING Chest X-Ray 05/25/17 0948 Signed Impressions: Service Date/Time: Thursday, May 25, 2017 10:01 - CONCLUSION: Improving chest with resolving left-sided airspace disease. John James MD Chest X-Ray 05/22/17 0000 Signed Impressions: Service Date/Time: May 15:38 - CONCLUSION: Increasing parenchymal infiltrates throughout the left lung compared to the prior study. Jef Saldaña MD PHYSICAL EXAMINATION: GENERAL: No acute distress. Alert and oriented. HEENT: The head is atraumatic. Extraocular movements grossly intact. Pupils reactive to light. No icterus. Oropharynx - moist mucosa without lesions. NECK: Supple, without lymphadenopathy. LUNGS: Decreased BS whole lung peralta HEART: Irregular rate and rhythm. No audible murmurs, rubs or gallops. ABDOMEN: Bowel sounds present. Soft, nontender. EXTREMITIES: No clubbing, cyanosis or edema. Brown discoloration of the skin of the distal tibias. SKIN: No rash. NEUROLOGIC: No gross focal findings. PSYCHIATRIC: Calm and cooperative. IMPRESSION: 1. Bacteremia due to Haemophilus influenzae and Staphylococcus coagulase-negative, source most likely pneumonia. 2. Left lung pneumonia. 3. Leukocytosis. 4. Chronic obstructive pulmonary disease. Appears stable. RECOMMENDATIONS: Continue ceftriaxone. Also on azithromycin. Monitor repeat blood cultures. Monitor clinical status. Possible oral Abx (Levaquin) if continues to do well Dr Monreal back tomorrow to resume ID care Pat Robertson MD May 25, 2017 16:17
[2017-05-25] MEDS: WARFARIN SOD 7.5 MG TAB PO SCH (18:17)
[2017-05-26] VITALS (28 sets, daily range): BP systolic 130–156; BP diastolic 70–83; PULSE 87–112; RESP 18–22; TEMP 97.7–98.6; O2SAT 92–98
[2017-05-26] MEDS: RESP: ALBUTEROL 2.5 MG/IPRATROPIUM 0.5 MG NEB (SCH) NEB ×7 (00:44→23:38)
[2017-05-26] MEDS: DILTIAZEM HCL 60 MG TAB PO SCH ×4 (05:17→23:56)
[2017-05-26 06:13] LABS: INTERNATIONAL NORMALIZED RATIO 1.3 RATIO; PROTHROMBIN TIME - PATIENT 13.3 SEC (9.8-11.6)
[2017-05-26 06:31] LABS: BICARBONATE 36.7 MEQ/L (21.0-32.0); CALCIUM 8.6 MG/DL (8.5-10.1); CREATININE 0.77 MG/DL (0.50-1.00)
[2017-05-26] MEDS: INSULIN ASPART SUPPLEMENTAL SCALE SQ SCH ×4 (08:00→22:19)
[2017-05-26] MEDS: DOCUSATE SODIUM 50 MG/SENNA 8.6 MG TAB PO SCH ×2 (08:14→21:00)
[2017-05-26] MEDS: AZITHROMYCIN 250 MG TAB PO SCH (08:14)
[2017-05-26] MEDS: GABAPENTIN 100 MG CAP PO SCH ×3 (08:14→18:00)
[2017-05-26] MEDS: SERTRALINE HCL 100 MG TAB PO SCH (08:14)
[2017-05-26] MEDS: FUROSEMIDE 40 MG TAB PO SCH ×2 (08:14→22:17)
[2017-05-26] MEDS: POTASSIUM CHLORIDE 10 MEQ CAP PO SCH (08:15)
[2017-05-26] MEDS: SODIUM CHLORIDE 0.9% FLUSH 10 ML FLUSH IV FLUSH SCH ×2 (08:15→22:20)
[2017-05-26] MEDS: methylPREDNISolone SOD SUCC 40 MG/1 ML VIAL IV PUSH SCH ×2 (08:15→22:19)
[2017-05-26] MEDS: METOPROLOL TARTRATE 25 MG TAB PO SCH (08:15)
[2017-05-26] MEDS: INSULIN DETEMIR 100 UNITS/ML VIAL SQ SCH (08:16)
[2017-05-26] MEDS: BUDESONIDE-FORMOTEROL 160/4.5 MCG INHALER INH SCH (09:00)
--- NOTE | 2017-05-26 09:45 | HHI.PR ---
Subjective Remarks Follow-up sepsis, bacteremia, pneumonia. Cardiology following for Atrial Fibrillation with Controlled Ventricular rate, continue management for Pneumonia, as oer ID to continue antibiotics for Haemophilus influenzae and Staphylococcus Coagulase negative source most likely pneumonia, to continue Ceftriaxone, Azithromycin, repeat blood cultures if continue doing well planned to switch to by mouth Levaquin by ID. Objective Vital Signs Date Time Temp Pulse Resp B/P (MAP) Pulse Ox O2 Delivery O2 Flow Rate FiO2 05/26/17 07:55 92 Nasal Cannula 2.00 05/26/17 05:00 96 05/26/17 04:00 90 05/26/17 04:00 Nasal Cannula 4.00 05/26/17 04:00 98.6 90 22 130/70 (90) 95 05/26/17 03:00 89 05/26/17 02:00 87 05/26/17 01:00 91 05/26/17 00:00 98.2 87 22 131/71 (91) 94 05/26/17 00:00 Nasal Cannula 4.00 05/26/17 00:00 87 05/25/17 20:08 Nasal Cannula 3.00 05/25/17 20:00 105 05/25/17 20:00 97.8 101 26 161/84 (109) 93 05/25/17 19:00 Nasal Cannula 4.00 05/25/17 19:00 97 22 148/70 (96) 93 05/25/17 18:01 107 32 145/58 (87) 90 05/25/17 18:00 126 35 90 05/25/17 17:00 97 27 141/84 (103) 92 05/25/17 16:00 98.5 90 21 132/64 (86) 91 05/25/17 15:00 94 20 138/63 (88) 94 05/25/17 14:00 101 26 154/77 (102) 94 05/25/17 13:00 99 29 146/68 (94) 88 05/25/17 12:00 98.4 110 27 138/67 (90) 92 05/25/17 11:11 99 28 130/73 (92) 94 05/25/17 11:00 105 27 05/25/17 10:00 98 31 145/76 (99) 100 I/O 05/25/17 05/25/17 05/25/17 05/26/17 05/26/17 3/12/18 07:00 15:00 23:00 07:00 15:00 23:00 Intake Total 220 ml 600 ml Output Total 800 ml Balance -580 ml 600 ml Intake Oral 120 ml 600 ml IV Total 100 ml Output Urine Total 800 ml # Bowel Movements 1 Result Diagram: 05/24/17 0425 05/26/17 0440 Imaging Last Impressions Chest X-Ray 05/25/17 0948 Signed Impressions: Service Date/Time: Thursday, May 25, 2017 10:01 - CONCLUSION: Improving chest with resolving left-sided airspace disease. John James MD Procedures None Other Results Laboratory Tests Test 05/19/17 19:50 05/19/17 19:55 05/20/17 09:07 05/23/17 04:00 Dohle Bodies PRESENT Activated Partial Thromboplast Time 45.5 SEC Blood Urea Nitrogen 39 MG/DL 40 MG/DL Creatinine 1.09 MG/DL 0.75 MG/DL Random Glucose 173 MG/DL 270 MG/DL Total Protein 7.8 GM/DL Albumin 3.1 GM/DL Calcium Level 9.6 MG/DL 8.9 MG/DL Magnesium Level 1.8 MG/DL 2.0 MG/DL Alkaline Phosphatase 99 U/L Aspartate Amino Transf (AST/SGOT) 7 U/L Alanine Aminotransferase (ALT/SGPT) 12 U/L Total Bilirubin 1.0 MG/DL Sodium Level 135 MEQ/L 141 MEQ/L Potassium Level 3.8 MEQ/L 4.6 MEQ/L Chloride Level 98 MEQ/L 103 MEQ/L Carbon Dioxide Level 26.1 MEQ/L 31.8 MEQ/L Total Creatine Kinase 45 U/L Troponin I LESS THAN 0.02 NG/ML B-Type Natriuretic Peptide 35 PG/ML Lipase 46 U/L Thyroid Stimulating Hormone 3rd Gen 1.350 uIU/ML B-Hydroxybutyrate 1.17 MMOL/L Lactic Acid Level 1.8 mmol/L Blood Gas Puncture Site RT RADIAL Blood Gas Patient Temperature 98.6 Blood Gas HCO3 26 mmol/L Blood Gas Base Excess 0.7 mmol/L Blood Gas Oxygen Saturation 94 % Arterial Blood pH 7.34 Arterial Blood Partial Pressure CO2 50 mmHg Arterial Blood Partial Pressure O2 81 mmHG Arterial Blood Oxygen Content 15.8 Vol % Arterial Blood Carboxyhemoglobin 1.0 % Arterial Blood Methemoglobin 0.7 % Blood Gas Hemoglobin 11.9 G/DL Oxygen Delivery Device PNRB Blood Gas Liter Flow 15 L/M Metamyelocytes 3 % Spherocytes 1+ Phosphorus Level 3.4 MG/DL Test 05/24/17 04:25 05/26/17 04:40 05/26/17 07:28 Mean Corpuscular Volume 76.9 FL Mean Corpuscular Hemoglobin 25.0 PG Mean Corpuscular Hemoglobin Concent 32.6 % Red Cell Distribution Width 18.9 % Mean Platelet Volume 9.2 FL Neutrophils (%) (Auto) 90.3 % Lymphocytes (%) (Auto) 6.5 % Monocytes (%) (Auto) 3.1 % Eosinophils (%) (Auto) 0.0 % Basophils (%) (Auto) 0.1 % Neutrophils # (Auto) 8.0 TH/MM3 Lymphocytes # (Auto) 0.6 TH/MM3 Monocytes # (Auto) 0.3 TH/MM3 Eosinophils # (Auto) 0.0 TH/MM3 Basophils # (Auto) 0.0 TH/MM3 CBC Comment AUTO DIFF Differential Total Cells Counted 100 Neutrophils % (Manual) 86 % Band Neutrophils % 5 % Lymphocytes % 5 % Monocytes % 1 % Neutrophils # (Manual) 8.4 TH/MM3 Myelocytes 3 % Platelet Estimate LOW Platelet Morphology Comment NORMAL Basophilic Stippling FAINT Ovalocytes 1+ Prothrombin Time 13.3 SEC Prothromb Time International Ratio 1.3 RATIO Blood Urea Nitrogen 37 MG/DL Creatinine 0.77 MG/DL Random Glucose 342 MG/DL Calcium Level 8.6 MG/DL Sodium Level 136 MEQ/L Potassium Level 4.3 MEQ/L Chloride Level 94 MEQ/L Carbon Dioxide Level 36.7 MEQ/L Anion Gap 5 MEQ/L Estimat Glomerular Filtration Rate 74 ML/MIN Objective Remarks General: Obese female in no acute distress. Heart: Irregular, tachycardic. No murmur. Lungs: Decreased breath sounds throughout. No wheezes noted. Breathing is nonlabored. Abdomen: Soft, nontender, nondistended. Extremities: Chronic bilateral lower extremity edema with venous stasis changes. Psych: Alert, oriented. Medications and IVs Current Medications Medications (Trade) Dose Ordered Sig/Carmen Route Start Time Stop Time Status Last Admin (Duoneb Neb) 1 ampule Q4HR NEB PRN NEB 05/20/17 01:45 05/21/17 16:44 Ceftriaxone Sodium 1000 mg/ Sodium Chloride 100 ml @ 200 mls/hr Q24H IV 05/20/17 20:00 05/25/17 19:59 (NS Flush) 2 ml UNSCH PRN IV FLUSH 05/20/17 01:45 (NS Flush) 2 ml BID IV FLUSH 05/20/17 09:00 05/26/17 08:15 (Zofran Inj) 4 mg Q6H PRN IVP 05/20/17 01:45 (Narcan Inj) 0.4 mg UNSCH PRN IV PUSH 05/20/17 01:45 (Basilia-Colace) 1 tab BID PO 05/20/17 09:00 05/26/17 08:14 (Milk Of Magnesia Liq) 30 ml Q12H PRN PO 05/20/17 01:45 (Senokot) 17.2 mg Q12H PRN PO 05/20/17 01:45 (Dulcolax Supp) 10 mg DAILY PRN RECTAL 05/20/17 01:45 (Lactulose Liq) 30 ml DAILY PRN PO 05/20/17 01:45 (Symbicort 160-4.5 Mcg Inh) 1 puff Q12HR INH 05/20/17 09:00 05/25/17 20:00 (Lasix) 40 mg BID PO 05/20/17 09:00 05/26/17 08:14 (Neurontin) 100 mg TID PO 05/20/17 09:00 05/26/17 08:14 (Lopressor) 25 mg BID PO 05/20/17 09:00 05/26/17 08:15 (Percocet 5-325 Mg) 1 tab Q6H PRN PO 05/20/17 01:45 05/21/17 08:17 (KCl) 10 meq DAILY PO 05/20/17 09:00 05/26/17 08:15 (Zoloft) 100 mg DAILY PO 05/20/17 09:00 05/26/17 08:14 (Pravachol) 80 mg HS PO 05/20/17 21:00 05/25/17 20:00 (D50w (Vial) Inj) 50 ml UNSCH PRN IV PUSH 05/20/17 01:45 (Glucagon Inj) 1 mg UNSCH PRN OTHER 05/20/17 01:45 (Cardizem) 60 mg Q6HR PO 05/20/17 15:00 05/26/17 05:17 Miscellaneous Information Patient in critical care unit? Ass... Q361D .XX 05/20/17 20:30 05/20/17 20:30 (NovoLOG SUPPLEMENTAL SCALE) 1 ACHS SLIDING SCALE SQ 05/23/17 17:00 05/26/17 08:00 (Levemir Inj) 8 units DAILY SQ 05/24/17 09:00 05/26/17 08:16 (SoluMEDROL INJ) 40 mg Q12HR IV PUSH 05/24/17 21:00 05/26/17 08:15 (Duoneb Neb) 1 ampule Q4HR NEB NEB 05/24/17 12:00 05/26/17 07:53 (Duoneb Neb) 1 ampule Q2HR NEB PRN NEB 05/24/17 11:00 (Zithromax) 500 mg DAILY PO 05/24/17 11:15 05/26/17 08:14 (Coumadin) 7.5 mg DAILY@1600 PO 05/25/17 17:17 05/25/17 18:17 A/P Assessment and Plan (1) COPD exacerbation ICD Code: J44.1 - Chronic obstructive pulmonary disease with (acute) exacerbation (2) Diabetes mellitus ICD Code: E11.9 - Type 2 diabetes mellitus without complications (3) Chronic systolic CHF (congestive heart failure) ICD Code: I50.22 - Chronic systolic (congestive) heart failure (4) Hypertension ICD Code: I10 - Essential (primary) hypertension (5) Hyperlipidemia ICD Code: E78.5 - Hyperlipidemia, unspecified (6) Atrial fibrillation with RVR ICD Code: I48.91 - Unspecified atrial fibrillation Status: Acute (7) Pneumonia ICD Code: J18.9 - Pneumonia, unspecified organism Status: Acute (8) Shortness of breath ICD Code: R06.02 - Shortness of breath Status: Acute (9) Sepsis ICD Code: A41.9 - Sepsis, unspecified organism (10) Acute kidney injury ICD Code: N17.9 - Acute kidney failure, unspecified 1. Atrial fibrillation with RVR: Transitioned from Cardizem drip to oral Cardizem. Rate improved at rest, but she becomes tachycardic to the 120s with any activity. Coumadin for anticoagulation. also continue Metoprolol. 2. Sepsis, pneumonia, bacteremia: Patient met criteria for sepsis upon admission with tachycardia, leukocytosis. Continue antibiotics. Continue supplemental oxygen. Blood cultures growing Haemophilus influenza and coag negative Staphylococcus. ID following. 3. COPD exacerbation with acute respiratory failure: Continue supplemental oxygen, bronchodilators, steroids. 4. Chronic systolic congestive heart failure: Continue Lasix. Echocardiogram shows EF 30-35%. Cardiology following. 5. Diabetes mellitus: Monitor Accu-Cheks and cover with sliding scale insulin. 6. Hyperlipidemia: Continue statin. 7. Acute kidney injury: Improved. Urine output has improved. 8. Anemia Hemoglobin improving 9. Morbid Obesity strongly recommended diet and exercise. DVT prophylaxis: on Coumadin. INR 1.3 CODE STATUS: Full code. Discharge Planning Awaiting final recommendations by ID specialist and Cardiology Ky Cook MD May 26, 2017 09:45
[2017-05-26 11:40] LABS: HEMATOCRIT 38.2 % (35.0-46.0); HEMOGLOBIN 12.2 GM/DL (11.6-15.3); LYMPH % 3.2 % (9.0-44.0); MEAN CELL VOLUME 76.8 FL (80.0-100.0); MEAN CORPUSCULAR HEMOGLOBIN 24.6 PG (27.0-34.0); MEAN CORPUSCULAR HGB CONC 32.1 % (32.0-36.0); MONO % 1.2 % (0.0-8.0); NEUT % 95.5 % (16.0-70.0); RED BLOOD COUNT 4.97 MIL/MM3 (4.00-5.30); RED CELL DISTRIBUTION WIDTH 18.6 % (11.6-17.2); WHITE BLOOD COUNT 21.8 TH/MM3 (4.0-11.0)
[2017-05-26 11:41] LABS: AUTOMATED NEUTROPHIL # 20.8 TH/MM3 (1.8-7.7); BASOPHIL % 0.1 % (0.0-2.0); LYMPHOCYTE # 0.7 TH/MM3 (1.0-4.8); MONOCYTE # 0.3 TH/MM3 (0-0.9)
[2017-05-26 12:36] LABS: MEAN PLATELET VOLUME 8.3 FL (7.0-11.0); PLATELET COUNT 182 TH/MM3 (150-450)
[2017-05-26 12:39] LABS: BANDS 8 % (0-6); BASOPHILS 1 % (0-2); LYMPHOCYTES 5 % (9-44); MONOCYTES 2 % (0-8); MYELOCYTES 2 % (0-0); NEUTROPHIL # MANUAL DIFF 20.1 TH/MM3 (1.8-7.7); POLYS (SEG NEUTROPHILS) 82 % (16-70)
--- NOTE | 2017-05-26 15:04 | HHI.PR ---
Subjective Remarks ALERT NO ACUTE DISTRESS ON O2 Objective Vital Signs Date Time Temp Pulse Resp B/P (MAP) Pulse Ox O2 Delivery O2 Flow Rate FiO2 05/26/17 14:01 95 05/26/17 13:01 112 05/26/17 12:15 97.8 94 18 141/83 (102) 93 05/26/17 12:00 96 05/26/17 11:00 87 05/26/17 10:00 94 05/26/17 09:00 106 05/26/17 08:30 92 Nasal Cannula 2.00 05/26/17 08:30 97.7 97 18 156/76 (102) 92 05/26/17 08:00 94 05/26/17 07:55 92 Nasal Cannula 2.00 05/26/17 07:00 96 05/26/17 05:00 96 05/26/17 04:00 90 05/26/17 04:00 Nasal Cannula 4.00 05/26/17 04:00 98.6 90 22 130/70 (90) 95 05/26/17 03:00 89 05/26/17 02:00 87 05/26/17 01:00 91 05/26/17 00:00 98.2 87 22 131/71 (91) 94 05/26/17 00:00 Nasal Cannula 4.00 05/26/17 00:00 87 05/25/17 20:08 Nasal Cannula 3.00 05/25/17 20:00 105 05/25/17 20:00 97.8 101 26 161/84 (109) 93 05/25/17 19:00 Nasal Cannula 4.00 05/25/17 19:00 97 22 148/70 (96) 93 05/25/17 18:01 107 32 145/58 (87) 90 05/25/17 18:00 126 35 90 05/25/17 17:00 97 27 141/84 (103) 92 05/25/17 16:00 98.5 90 21 132/64 (86) 91 I/O 05/25/17 05/25/17 05/25/17 05/26/17 05/26/17 05/26/17 07:00 15:00 23:00 07:00 15:00 23:00 Intake Total 220 ml 600 ml Output Total 800 ml Balance -580 ml 600 ml Intake Oral 120 ml 600 ml IV Total 100 ml Output Urine Total 800 ml # Bowel Movements 1 Result Diagram: 05/26/17 1016 05/26/17 0440 Procedures None Objective Remarks GENERAL: SKIN: Warm and dry. HEAD: Atraumatic. Normocephalic. EYES: Pupils equal and round. No scleral icterus. No injection or drainage. ENT: No nasal bleeding or discharge. Mucous membranes pink and moist. NECK: Trachea midline. No JVD. CARDIOVASCULAR: Regular rate and rhythm. RESPIRATORY: No accessory muscle use. Clear to auscultation. Breath sounds equal bilaterally. GASTROINTESTINAL: Abdomen soft, non-tender, nondistended. Hepatic and splenic margins not palpable. MUSCULOSKELETAL: Extremities without clubbing, cyanosis, or edema. No obvious deformities. NEUROLOGICAL: Awake and alert. No obvious cranial nerve deficits. Motor grossly within normal limits. Five out of 5 muscle strength in the arms and legs. Normal speech. PSYCHIATRIC: Appropriate mood and affect; insight and judgment normal. Assessment and Plan Assessment and Plan ASSESSMENT COPD EXACERBATION RESPIRATORY FAILURE AFIB HTN HND CHF PLAN O2 / has home o2 ANTIBX BRONCHODILATORS INCREASE ACTIVITY may d/c pulmonary [facility] 1 week Valentina Montgomery MD May 26, 2017 15:04
--- NOTE | 2017-05-26 15:27 | HHI.IDPN ---
Note Infectious Disease Note Patient feels okay. Coughing is improved. Afebrile. 67-year-old white female who has a history of asthma and COPD. The patient developed cough three days before presenting to the emergency department. She has home nurse caregivers. She was noted by her home nurse caregiver to be wheezing more than usual three days before presenting to the emergency department. She was evaluated in the emergency department and at that time she was noted to have elevated heart rate of 140 and was in atrial fibrillation. She has a history of atrial fibrillation. The patient had a 2-D echocardiogram which showed moderate mitral regurgitation and mild to moderate tricuspid valve regurgitation and also moderate pulmonary hypertension. PAST MEDICAL HISTORY: 1. COPD. The patient uses home oxygen. 2. Hypertension. 3. Hyperlipidemia. 4. Atrial fibrillation. 5. Diabetes mellitus. 6. Asthma. 7. Congestive heart failure. 8. Gastroesophageal reflux disease. 9. Hysterectomy. ALLERGIES: NO KNOWN DRUG ALLERGIES. MEDICATIONS: Current Medications Medications (Trade) Dose Ordered Sig/Carmen Route PRN Reason Start Time Stop Time Status Last Admin Dose Admin Albuterol/ Ipratropium (Duoneb Neb) 1 ampule Q4HR NEB PRN NEB SOB/WHeezing 05/20/17 01:45 05/21/17 16:44 Ceftriaxone Sodium 1000 mg/ Sodium Chloride 100 ml @ 200 mls/hr Q24H IV 05/20/17 20:00 05/25/17 19:59 Sodium Chloride (NS Flush) 2 ml UNSCH PRN IV FLUSH FLUSH AFTER USING IV ACCESS 05/20/17 01:45 Sodium Chloride (NS Flush) 2 ml BID IV FLUSH 05/20/17 09:00 05/26/17 08:15 Ondansetron HCl (Zofran Inj) 4 mg Q6H PRN IVP NAUSEA OR VOMITING 05/20/17 01:45 Naloxone HCl (Narcan Inj) 0.4 mg UNSCH PRN IV PUSH SEE LABEL COMMENTS 05/20/17 01:45 Senna/Docusate Sodium (Basilia-Colace) 1 tab BID PO 05/20/17 09:00 05/26/17 08:14 Magnesium Hydroxide (Milk Of Magnesia Liq) 30 ml Q12H PRN PO Mild constipation 05/20/17 01:45 Sennosides (Senokot) 17.2 mg Q12H PRN PO Moderate constipation 05/20/17 01:45 Bisacodyl (Dulcolax Supp) 10 mg DAILY PRN RECTAL SEVERE CONSITIPATION / IF NPO 05/20/17 01:45 Lactulose (Lactulose Liq) 30 ml DAILY PRN PO SEVERE CONSITIPATION / IF PO 05/20/17 01:45 Budesonide/ Formoterol Fumarate (Symbicort 160-4.5 Mcg Inh) 1 puff Q12HR INH 05/20/17 09:00 05/25/17 20:00 Furosemide (Lasix) 40 mg BID PO 05/20/17 09:00 05/26/17 08:14 Gabapentin (Neurontin) 100 mg TID PO 05/20/17 09:00 05/26/17 12:09 Metoprolol Tartrate (Lopressor) 25 mg BID PO 05/20/17 09:00 05/26/17 08:15 Oxycodone/ Acetaminophen (Percocet 5-325 Mg) 1 tab Q6H PRN PO PAIN 05/20/17 01:45 05/21/17 08:17 Potassium Chloride (KCl) 10 meq DAILY PO 05/20/17 09:00 05/26/17 08:15 Sertraline HCl (Zoloft) 100 mg DAILY PO 05/20/17 09:00 05/26/17 08:14 Pravastatin Sodium (Pravachol) 80 mg HS PO 05/20/17 21:00 05/25/17 20:00 Dextrose (D50w (Vial) Inj) 50 ml UNSCH PRN IV PUSH HYPOGLYCEMIA-SEE COMMENTS 05/20/17 01:45 Glucagon (Glucagon Inj) 1 mg UNSCH PRN OTHER HYPOGLYCEMIA-SEE COMMENTS 05/20/17 01:45 Diltiazem HCl (Cardizem) 60 mg Q6HR PO 05/20/17 15:00 05/26/17 12:09 Miscellaneous Information Patient in critical care unit? Ass... Q361D .XX 05/20/17 20:30 05/20/17 20:30 Insulin Aspart (NovoLOG SUPPLEMENTAL SCALE) 1 ACHS SLIDING SCALE SQ 05/23/17 17:00 05/26/17 12:00 Insulin Detemir (Levemir Inj) 8 units DAILY SQ 05/24/17 09:00 05/26/17 08:16 Methylprednisolone Sodium Succinate (SoluMEDROL INJ) 40 mg Q12HR IV PUSH 05/24/17 21:00 05/26/17 08:15 Albuterol/ Ipratropium (Duoneb Neb) 1 ampule Q4HR NEB NEB 05/24/17 12:00 05/26/17 11:22 Albuterol/ Ipratropium (Duoneb Neb) 1 ampule Q2HR NEB PRN NEB SHORTNESS OF BREATH 05/24/17 11:00 Azithromycin (Zithromax) 500 mg DAILY PO 05/24/17 11:15 05/26/17 08:14 Warfarin Sodium (Coumadin) 7.5 mg DAILY@1600 PO 05/25/17 17:17 05/25/17 18:17 SOCIAL HISTORY: The patient moved to the [facility] from [place] in February 2017. No tobacco use, no alcohol, no illicit drugs. The patient used to be a smoker up until 1983. OBJECTIVE: Vital Signs Date Time Temp Pulse Resp B/P (MAP) Pulse Ox O2 Delivery O2 Flow Rate FiO2 05/26/17 14:01 95 05/26/17 13:01 112 05/26/17 12:15 97.8 94 18 141/83 (102) 93 05/26/17 12:00 96 05/26/17 11:00 87 05/26/17 10:00 94 05/26/17 09:00 106 05/26/17 08:30 92 Nasal Cannula 2.00 05/26/17 08:30 97.7 97 18 156/76 (102) 92 05/26/17 08:00 94 05/26/17 07:55 92 Nasal Cannula 2.00 05/26/17 07:00 96 05/26/17 05:00 96 05/26/17 04:00 90 05/26/17 04:00 Nasal Cannula 4.00 05/26/17 04:00 98.6 90 22 130/70 (90) 95 05/26/17 03:00 89 05/26/17 02:00 87 05/26/17 01:00 91 05/26/17 00:00 98.2 87 22 131/71 (91) 94 05/26/17 00:00 Nasal Cannula 4.00 05/26/17 00:00 87 05/25/17 20:08 Nasal Cannula 3.00 05/25/17 20:00 105 05/25/17 20:00 97.8 101 26 161/84 (109) 93 05/25/17 19:00 Nasal Cannula 4.00 05/25/17 19:00 97 22 148/70 (96) 93 05/25/17 18:01 107 32 145/58 (87) 90 05/25/17 18:00 126 35 90 05/25/17 17:00 97 27 141/84 (103) 92 05/25/17 16:00 98.5 90 21 132/64 (86) 91 Laboratory Tests Test 05/26/17 10:16 White Blood Count 21.8 TH/MM3 Red Blood Count 4.97 MIL/MM3 Hemoglobin 12.2 GM/DL Hematocrit 38.2 % Mean Corpuscular Volume 76.8 FL Mean Corpuscular Hemoglobin 24.6 PG Mean Corpuscular Hemoglobin Concent 32.1 % Red Cell Distribution Width 18.6 % Platelet Count 182 TH/MM3 Mean Platelet Volume 8.3 FL Neutrophils (%) (Auto) 95.5 % Lymphocytes (%) (Auto) 3.2 % Monocytes (%) (Auto) 1.2 % Eosinophils (%) (Auto) 0.0 % Basophils (%) (Auto) 0.1 % Neutrophils # (Auto) 20.8 TH/MM3 Lymphocytes # (Auto) 0.7 TH/MM3 Monocytes # (Auto) 0.3 TH/MM3 Eosinophils # (Auto) 0.0 TH/MM3 Basophils # (Auto) 0.0 TH/MM3 CBC Comment AUTO DIFF Differential Total Cells Counted 100 Neutrophils % (Manual) 82 % Band Neutrophils % 8 % Lymphocytes % 5 % Monocytes % 2 % Basophils % 1 % Neutrophils # (Manual) 20.1 TH/MM3 Myelocytes 2 % Differential Comment FINAL DIFF MANUAL Platelet Estimate NORMAL Platelet Morphology Comment CLUMPED Laboratory Tests Test 05/26/17 04:40 Blood Urea Nitrogen 37 MG/DL Creatinine 0.77 MG/DL Random Glucose 342 MG/DL Calcium Level 8.6 MG/DL Sodium Level 136 MEQ/L Potassium Level 4.3 MEQ/L Chloride Level 94 MEQ/L Carbon Dioxide Level 36.7 MEQ/L Anion Gap 5 MEQ/L Estimat Glomerular Filtration Rate 74 ML/MIN IMAGING: Chest X-Ray 05/25/17 0948 Signed Impressions: Service Date/Time: Thursday, May 25, 2017 10:01 - CONCLUSION: Improving chest with resolving left-sided airspace disease. John James MD PHYSICAL EXAMINATION: GENERAL: No acute distress. Alert and oriented. HEENT: No icterus. Oropharynx - moist mucosa without lesions. NECK: Supple, without lymphadenopathy. LUNGS: Decreased clear breath sounds. HEART: Irregular rate and rhythm. No audible murmurs, rubs or gallops. ABDOMEN: Bowel sounds present. Soft, nontender. EXTREMITIES: No clubbing, cyanosis or edema. Brown discoloration of the skin of the distal tibias. SKIN: No rash. NEUROLOGIC: No gross focal findings. PSYCHIATRIC: Calm and cooperative. IMPRESSION: 1. Bacteremia due to Haemophilus influenzae and Staphylococcus coagulase-negative, source most likely pneumonia. 2. Left lung pneumonia. Improved. 3. Leukocytosis. White blood cell count has increased. This could be due to steroids. 4. Chronic obstructive pulmonary disease. Appears stable. RECOMMENDATIONS: 1. Stop ceftriaxone. 2. Stop azithromycin. 3. Monitor white blood cell count. P.O. Levaquin for 5 more days. Monitor clinical status. Hardik Monreal MD May 26, 2017 15:27
[2017-05-26] MEDS: LEVOFLOXACIN 750 MG TAB PO SCH (16:25)
[2017-05-26] MEDS: WARFARIN SOD 7.5 MG TAB PO SCH (16:25)
--- NOTE | 2017-05-26 17:57 | PD.CARD.PN ---
Subjective Subjective Remarks No events overnight No chest pain SOB getting better Heart rates around 100 Objective Medications Current Medications Medications (Trade) Dose Ordered Sig/Carmen Route Start Time Stop Time Status Last Admin (Duoneb Neb) 1 ampule Q4HR NEB PRN NEB 05/20/17 01:45 05/21/17 16:44 (NS Flush) 2 ml UNSCH PRN IV FLUSH 05/20/17 01:45 (NS Flush) 2 ml BID IV FLUSH 05/20/17 09:00 05/26/17 08:15 (Zofran Inj) 4 mg Q6H PRN IVP 05/20/17 01:45 (Narcan Inj) 0.4 mg UNSCH PRN IV PUSH 05/20/17 01:45 (Basilia-Colace) 1 tab BID PO 05/20/17 09:00 05/26/17 08:14 (Milk Of Magnesia Liq) 30 ml Q12H PRN PO 05/20/17 01:45 (Senokot) 17.2 mg Q12H PRN PO 05/20/17 01:45 (Dulcolax Supp) 10 mg DAILY PRN RECTAL 05/20/17 01:45 (Lactulose Liq) 30 ml DAILY PRN PO 05/20/17 01:45 (Symbicort 160-4.5 Mcg Inh) 1 puff Q12HR INH 05/20/17 09:00 05/25/17 20:00 (Lasix) 40 mg BID PO 05/20/17 09:00 05/26/17 08:14 (Neurontin) 100 mg TID PO 05/20/17 09:00 05/26/17 12:09 (Lopressor) 25 mg BID PO 05/20/17 09:00 05/26/17 08:15 (Percocet 5-325 Mg) 1 tab Q6H PRN PO 05/20/17 01:45 05/21/17 08:17 (KCl) 10 meq DAILY PO 05/20/17 09:00 05/26/17 08:15 (Zoloft) 100 mg DAILY PO 05/20/17 09:00 05/26/17 08:14 (Pravachol) 80 mg HS PO 05/20/17 21:00 05/25/17 20:00 (D50w (Vial) Inj) 50 ml UNSCH PRN IV PUSH 05/20/17 01:45 (Glucagon Inj) 1 mg UNSCH PRN OTHER 05/20/17 01:45 (Cardizem) 60 mg Q6HR PO 05/20/17 15:00 05/26/17 12:09 Miscellaneous Information Patient in critical care unit? Ass... Q361D .XX 05/20/17 20:30 05/20/17 20:30 (NovoLOG SUPPLEMENTAL SCALE) 1 ACHS SLIDING SCALE SQ 05/23/17 17:00 05/26/17 12:00 (Levemir Inj) 8 units DAILY SQ 05/24/17 09:00 05/26/17 08:16 (SoluMEDROL INJ) 40 mg Q12HR IV PUSH 05/24/17 21:00 05/26/17 08:15 (Duoneb Neb) 1 ampule Q4HR NEB NEB 05/24/17 12:00 05/26/17 15:46 (Duoneb Neb) 1 ampule Q2HR NEB PRN NEB 05/24/17 11:00 (Coumadin) 7.5 mg DAILY@1600 PO 05/25/17 17:17 05/26/17 16:25 (Levaquin) 750 mg DAILY PO 05/26/17 16:00 05/30/17 10:00 05/26/17 16:25 Vital Signs / I&O Vital Signs Date Time Temp Pulse Resp B/P (MAP) Pulse Ox O2 Delivery O2 Flow Rate FiO2 05/26/17 17:01 102 05/26/17 16:00 96 05/26/17 15:01 98.1 92 18 149/76 (100) 98 05/26/17 15:00 95 05/26/17 14:01 95 05/26/17 13:01 112 05/26/17 12:15 97.8 94 18 141/83 (102) 93 05/26/17 12:00 96 05/26/17 11:00 87 05/26/17 10:00 94 05/26/17 09:00 106 05/26/17 08:30 92 Nasal Cannula 2.00 05/26/17 08:30 97.7 97 18 156/76 (102) 92 05/26/17 08:00 94 05/26/17 07:55 92 Nasal Cannula 2.00 05/26/17 07:00 96 05/26/17 05:00 96 05/26/17 04:00 90 05/26/17 04:00 Nasal Cannula 4.00 05/26/17 04:00 98.6 90 22 130/70 (90) 95 05/26/17 03:00 89 05/26/17 02:00 87 05/26/17 01:00 91 05/26/17 00:00 98.2 87 22 131/71 (91) 94 05/26/17 00:00 Nasal Cannula 4.00 05/26/17 00:00 87 05/25/17 20:08 Nasal Cannula 3.00 05/25/17 20:00 105 05/25/17 20:00 97.8 101 26 161/84 (109) 93 05/25/17 19:00 Nasal Cannula 4.00 05/25/17 19:00 97 22 148/70 (96) 93 05/25/17 18:01 107 32 145/58 (87) 90 05/25/17 18:00 126 35 90 I/O 05/25/17 05/25/17 05/25/17 05/26/17 05/26/17 05/26/17 07:00 15:00 23:00 07:00 15:00 23:00 Intake Total 220 ml 600 ml Output Total 800 ml Balance -580 ml 600 ml Intake Oral 120 ml 600 ml IV Total 100 ml Output Urine Total 800 ml # Bowel Movements 1 Physical Exam GENERAL: NAD SKIN: Warm and dry. HEAD: Atraumatic. Normocephalic. EYES: Pupils equal and round. No scleral icterus. No injection or drainage. ENT: No nasal bleeding or discharge. Mucous membranes pink and moist. NECK: Trachea midline. No JVD. CARDIOVASCULAR: Irregularly irregular RESPIRATORY: No accessory muscle use. Decreased breath sounds bilaterally GASTROINTESTINAL: Abdomen soft, non-tender, nondistended. Hepatic and splenic margins not palpable. MUSCULOSKELETAL: 2+ edema, chronic in nature NEUROLOGICAL: Awake and alert. No obvious cranial nerve deficits. Motor grossly within normal limits. Five out of 5 muscle strength in the arms and legs. Normal speech. PSYCHIATRIC: Appropriate mood and affect; insight and judgment normal. Laboratory Laboratory Tests Test 05/26/17 04:40 05/26/17 10:16 Prothrombin Time 13.3 SEC Prothromb Time International Ratio 1.3 RATIO Blood Urea Nitrogen 37 MG/DL Creatinine 0.77 MG/DL Random Glucose 342 MG/DL Calcium Level 8.6 MG/DL Sodium Level 136 MEQ/L Potassium Level 4.3 MEQ/L Chloride Level 94 MEQ/L Carbon Dioxide Level 36.7 MEQ/L Anion Gap 5 MEQ/L Estimat Glomerular Filtration Rate 74 ML/MIN White Blood Count 21.8 TH/MM3 Red Blood Count 4.97 MIL/MM3 Hemoglobin 12.2 GM/DL Hematocrit 38.2 % Mean Corpuscular Volume 76.8 FL Mean Corpuscular Hemoglobin 24.6 PG Mean Corpuscular Hemoglobin Concent 32.1 % Red Cell Distribution Width 18.6 % Platelet Count 182 TH/MM3 Mean Platelet Volume 8.3 FL Neutrophils (%) (Auto) 95.5 % Lymphocytes (%) (Auto) 3.2 % Monocytes (%) (Auto) 1.2 % Eosinophils (%) (Auto) 0.0 % Basophils (%) (Auto) 0.1 % Neutrophils # (Auto) 20.8 TH/MM3 Lymphocytes # (Auto) 0.7 TH/MM3 Monocytes # (Auto) 0.3 TH/MM3 Eosinophils # (Auto) 0.0 TH/MM3 Basophils # (Auto) 0.0 TH/MM3 CBC Comment AUTO DIFF Differential Total Cells Counted 100 Neutrophils % (Manual) 82 % Band Neutrophils % 8 % Lymphocytes % 5 % Monocytes % 2 % Basophils % 1 % Neutrophils # (Manual) 20.1 TH/MM3 Myelocytes 2 % Differential Comment FINAL DIFF MANUAL Platelet Estimate NORMAL Platelet Morphology Comment CLUMPED Assessment and Plan Problem List: (1) COPD exacerbation ICD Codes: J44.1 - Chronic obstructive pulmonary disease with (acute) exacerbation (2) Chronic systolic CHF (congestive heart failure) ICD Codes: I50.22 - Chronic systolic (congestive) heart failure (3) Atrial fibrillation with RVR ICD Codes: I48.91 - Unspecified atrial fibrillation Status: Acute (4) Hypertension ICD Codes: I10 - Essential (primary) hypertension (5) Hyperlipidemia ICD Codes: E78.5 - Hyperlipidemia, unspecified (6) Diabetes mellitus ICD Codes: E11.9 - Type 2 diabetes mellitus without complications (7) Shortness of breath ICD Codes: R06.02 - Shortness of breath Status: Acute Assessment and Plan 1) Afib now with CVR Con't Cardizem/Metoprolol, increase Lopressor to 50mg BID RVR may be due to increased sympathetics 2) PNA/COPD per primary/pulm 3) EF 30-35% Con't BB, will add CYNTHIA-I once more stable as blood pressure borderline low 4) Drop in Hgb Plan for Hemoccult stool 5) INR elevated ? secondary to Coumadin with anti-biotics Since has normalized Bong Tinsley DO May 26, 2017 17:57
[2017-05-26] MEDS: PRAVASTATIN SOD 40 MG TAB PO SCH (22:18)
[2017-05-26] MEDS: METOPROLOL TARTRATE 50 MG TAB PO SCH (22:19)
[2017-05-27] VITALS (17 sets, daily range): BP systolic 119–147; BP diastolic 69–85; PULSE 82–118; RESP 18–20; TEMP 97.1–97.8; O2SAT 93–95
[2017-05-27] MEDS: RESP: ALBUTEROL 2.5 MG/IPRATROPIUM 0.5 MG NEB (SCH) NEB ×5 (03:32→19:42)
[2017-05-27] MEDS: DILTIAZEM HCL 60 MG TAB PO SCH ×3 (06:20→17:42)
[2017-05-27] MEDS: INSULIN ASPART SUPPLEMENTAL SCALE SQ SCH ×4 (08:00→21:53)
[2017-05-27] MEDS: INSULIN DETEMIR 100 UNITS/ML VIAL SQ SCH ×2 (09:00→21:00)
[2017-05-27] MEDS: SODIUM CHLORIDE 0.9% FLUSH 10 ML FLUSH IV FLUSH SCH ×2 (09:19→21:52)
[2017-05-27] MEDS: POTASSIUM CHLORIDE 10 MEQ CAP PO SCH (09:20)
[2017-05-27] MEDS: methylPREDNISolone SOD SUCC 40 MG/1 ML VIAL IV PUSH SCH (09:20)
[2017-05-27] MEDS: LEVOFLOXACIN 750 MG TAB PO SCH (09:20)
[2017-05-27] MEDS: METOPROLOL TARTRATE 50 MG TAB PO SCH ×2 (09:20→21:54)
[2017-05-27] MEDS: DOCUSATE SODIUM 50 MG/SENNA 8.6 MG TAB PO SCH ×2 (09:20→21:00)
[2017-05-27] MEDS: SERTRALINE HCL 100 MG TAB PO SCH (09:20)
[2017-05-27] MEDS: GABAPENTIN 100 MG CAP PO SCH ×3 (09:20→17:45)
[2017-05-27] MEDS: FUROSEMIDE 40 MG TAB PO SCH ×2 (09:23→21:53)
[2017-05-27] MEDS: BUDESONIDE-FORMOTEROL 160/4.5 MCG INHALER INH SCH ×3 (11:14→21:52)
--- NOTE | 2017-05-27 16:32 | HHI.PR ---
Subjective Remarks ALERT NO ACUTE DISTRESS ON O2 Objective Vital Signs Date Time Temp Pulse Resp B/P (MAP) Pulse Ox O2 Delivery O2 Flow Rate FiO2 05/27/17 11:19 97.1 84 18 119/69 (86) 93 05/27/17 08:12 97.4 92 18 141/74 (96) 05/27/17 07:50 94 Nasal Cannula 2.00 05/27/17 06:00 91 05/27/17 05:00 91 05/27/17 04:00 97.8 89 18 132/77 (95) 94 05/27/17 04:00 88 05/27/17 03:00 83 05/27/17 02:00 82 05/27/17 01:00 86 05/27/17 00:00 86 05/27/17 00:00 95 Nasal Cannula 2.00 05/27/17 00:00 97.6 86 18 147/85 (105) 95 05/26/17 23:00 88 05/26/17 22:00 104 05/26/17 21:00 104 05/26/17 20:52 98 Nasal Cannula 2.00 05/26/17 20:00 92 Nasal Cannula 2.00 05/26/17 20:00 97.7 100 18 135/73 (93) 92 05/26/17 20:00 108 05/26/17 19:00 104 05/26/17 18:01 102 05/26/17 17:01 102 I/O 05/26/17 05/26/17 05/26/17 05/27/17 05/27/17 05/27/17 07:00 15:00 23:00 07:00 15:00 23:00 Intake Total 720 ml 240 ml Output Total 800 ml 300 ml Balance -80 ml -60 ml Intake Oral 720 ml 240 ml Output Urine Total 800 ml 300 ml # Voids 3 2 # Bowel Movements 0 Result Diagram: 05/26/17 1016 05/26/17 0440 Procedures None Objective Remarks GENERAL: SKIN: Warm and dry. HEAD: Atraumatic. Normocephalic. EYES: Pupils equal and round. No scleral icterus. No injection or drainage. ENT: No nasal bleeding or discharge. Mucous membranes pink and moist. NECK: Trachea midline. No JVD. CARDIOVASCULAR: Regular rate and rhythm. RESPIRATORY: No accessory muscle use. Clear to auscultation. Breath sounds equal bilaterally. GASTROINTESTINAL: Abdomen soft, non-tender, nondistended. Hepatic and splenic margins not palpable. MUSCULOSKELETAL: Extremities without clubbing, cyanosis, or edema. No obvious deformities. NEUROLOGICAL: Awake and alert. No obvious cranial nerve deficits. Motor grossly within normal limits. Five out of 5 muscle strength in the arms and legs. Normal speech. PSYCHIATRIC: Appropriate mood and affect; insight and judgment normal. Assessment and Plan Assessment and Plan ASSESSMENT COPD EXACERBATION RESPIRATORY FAILURE AFIB HTN HND CHF PLAN O2 / has home o2 ANTIBX BRONCHODILATORS INCREASE ACTIVITY may d/c pulmonary wiseoffice 2 weeks office 1 week Valentina Montgomery MD May 27, 2017 16:32
[2017-05-27] MEDS: WARFARIN SOD 7.5 MG TAB PO SCH (17:42)
--- NOTE | 2017-05-27 18:08 | HHI.PR ---
Subjective Remarks Follow-up sepsis, bacteremia, pneumonia. Cardiology following for Atrial Fibrillation with Controlled Ventricular rate, continue management for Pneumonia, as oer ID to continue antibiotics for Haemophilus influenzae and Staphylococcus Coagulase negative source most likely pneumonia, to continue Ceftriaxone, Azithromycin, repeat blood cultures if continue doing well planned to switch to by mouth Levaquin by ID. 05/27: seen in her bedroom, no complaint, no nausea, vomit or diarrhea, will go to SNF tomorrow if cleared by volunteer services specialist. Objective Vital Signs Date Time Temp Pulse Resp B/P (MAP) Pulse Ox O2 Delivery O2 Flow Rate FiO2 05/27/17 17:46 97.8 89 20 132/69 (90) 94 05/27/17 17:08 Nasal Cannula 2.00 05/27/17 11:19 97.1 84 18 119/69 (86) 93 05/27/17 08:12 97.4 92 18 141/74 (96) 05/27/17 07:50 94 Nasal Cannula 2.00 05/27/17 06:00 91 05/27/17 05:00 91 05/27/17 04:00 97.8 89 18 132/77 (95) 94 05/27/17 04:00 88 05/27/17 03:00 83 05/27/17 02:00 82 05/27/17 01:00 86 05/27/17 00:00 86 05/27/17 00:00 95 Nasal Cannula 2.00 05/27/17 00:00 97.6 86 18 147/85 (105) 95 05/26/17 23:00 88 05/26/17 22:00 104 05/26/17 21:00 104 05/26/17 20:52 98 Nasal Cannula 2.00 05/26/17 20:00 92 Nasal Cannula 2.00 05/26/17 20:00 97.7 100 18 135/73 (93) 92 05/26/17 20:00 108 05/26/17 19:00 104 I/O 05/26/17 05/26/17 05/26/17 05/27/17 05/27/17 05/27/17 07:00 15:00 23:00 07:00 15:00 23:00 Intake Total 720 ml 240 ml Output Total 800 ml 300 ml 600 ml Balance -80 ml -60 ml -600 ml Intake Oral 720 ml 240 ml Output Urine Total 800 ml 300 ml 600 ml # Voids 3 2 # Bowel Movements 0 1 Result Diagram: 05/26/17 1016 05/26/17 0440 Imaging Last Impressions Chest X-Ray 05/25/17 0948 Signed Impressions: Service Date/Time: Thursday, May 25, 2017 10:01 - CONCLUSION: Improving chest with resolving left-sided airspace disease. John James MD Procedures None Other Results Laboratory Tests Test 05/19/17 19:50 05/19/17 19:55 05/20/17 09:07 05/23/17 04:00 Dohle Bodies PRESENT Activated Partial Thromboplast Time 45.5 SEC Blood Urea Nitrogen 39 MG/DL 40 MG/DL Creatinine 1.09 MG/DL 0.75 MG/DL Random Glucose 173 MG/DL 270 MG/DL Total Protein 7.8 GM/DL Albumin 3.1 GM/DL Calcium Level 9.6 MG/DL 8.9 MG/DL Magnesium Level 1.8 MG/DL 2.0 MG/DL Alkaline Phosphatase 99 U/L Aspartate Amino Transf (AST/SGOT) 7 U/L Alanine Aminotransferase (ALT/SGPT) 12 U/L Total Bilirubin 1.0 MG/DL Sodium Level 135 MEQ/L 141 MEQ/L Potassium Level 3.8 MEQ/L 4.6 MEQ/L Chloride Level 98 MEQ/L 103 MEQ/L Carbon Dioxide Level 26.1 MEQ/L 31.8 MEQ/L Total Creatine Kinase 45 U/L Troponin I LESS THAN 0.02 NG/ML B-Type Natriuretic Peptide 35 PG/ML Lipase 46 U/L Thyroid Stimulating Hormone 3rd Gen 1.350 uIU/ML B-Hydroxybutyrate 1.17 MMOL/L Lactic Acid Level 1.8 mmol/L Blood Gas Puncture Site RT RADIAL Blood Gas Patient Temperature 98.6 Blood Gas HCO3 26 mmol/L Blood Gas Base Excess 0.7 mmol/L Blood Gas Oxygen Saturation 94 % Arterial Blood pH 7.34 Arterial Blood Partial Pressure CO2 50 mmHg Arterial Blood Partial Pressure O2 81 mmHG Arterial Blood Oxygen Content 15.8 Vol % Arterial Blood Carboxyhemoglobin 1.0 % Arterial Blood Methemoglobin 0.7 % Blood Gas Hemoglobin 11.9 G/DL Oxygen Delivery Device PNRB Blood Gas Liter Flow 15 L/M Metamyelocytes 3 % Spherocytes 1+ Phosphorus Level 3.4 MG/DL Test 05/24/17 04:25 05/26/17 04:40 05/26/17 10:16 Basophilic Stippling FAINT Ovalocytes 1+ Prothrombin Time 13.3 SEC Prothromb Time International Ratio 1.3 RATIO Blood Urea Nitrogen 37 MG/DL Creatinine 0.77 MG/DL Random Glucose 342 MG/DL Calcium Level 8.6 MG/DL Sodium Level 136 MEQ/L Potassium Level 4.3 MEQ/L Chloride Level 94 MEQ/L Carbon Dioxide Level 36.7 MEQ/L Anion Gap 5 MEQ/L Estimat Glomerular Filtration Rate 74 ML/MIN White Blood Count 21.8 TH/MM3 Red Blood Count 4.97 MIL/MM3 Hemoglobin 12.2 GM/DL Hematocrit 38.2 % Mean Corpuscular Volume 76.8 FL Mean Corpuscular Hemoglobin 24.6 PG Mean Corpuscular Hemoglobin Concent 32.1 % Red Cell Distribution Width 18.6 % Platelet Count 182 TH/MM3 Mean Platelet Volume 8.3 FL Neutrophils (%) (Auto) 95.5 % Lymphocytes (%) (Auto) 3.2 % Monocytes (%) (Auto) 1.2 % Eosinophils (%) (Auto) 0.0 % Basophils (%) (Auto) 0.1 % Neutrophils # (Auto) 20.8 TH/MM3 Lymphocytes # (Auto) 0.7 TH/MM3 Monocytes # (Auto) 0.3 TH/MM3 Eosinophils # (Auto) 0.0 TH/MM3 Basophils # (Auto) 0.0 TH/MM3 CBC Comment AUTO DIFF Differential Total Cells Counted 100 Neutrophils % (Manual) 82 % Band Neutrophils % 8 % Lymphocytes % 5 % Monocytes % 2 % Basophils % 1 % Neutrophils # (Manual) 20.1 TH/MM3 Myelocytes 2 % Differential Comment FINAL DIFF MANUAL Platelet Estimate NORMAL Platelet Morphology Comment CLUMPED Objective Remarks General: Obese female in no acute distress. Heart: Irregular, tachycardic. No murmur. Lungs: Decreased breath sounds throughout. No wheezes noted. Breathing is nonlabored. Abdomen: Soft, nontender, nondistended. Extremities: Chronic bilateral lower extremity edema with venous stasis changes. Psych: Alert, oriented. Medications and IVs Current Medications Medications (Trade) Dose Ordered Sig/Carmen Route Start Time Stop Time Status Last Admin (Duoneb Neb) 1 ampule Q4HR NEB PRN NEB 05/20/17 01:45 05/21/17 16:44 (NS Flush) 2 ml UNSCH PRN IV FLUSH 05/20/17 01:45 (NS Flush) 2 ml BID IV FLUSH 05/20/17 09:00 05/27/17 09:19 (Zofran Inj) 4 mg Q6H PRN IVP 05/20/17 01:45 (Narcan Inj) 0.4 mg UNSCH PRN IV PUSH 05/20/17 01:45 (Basilia-Colace) 1 tab BID PO 05/20/17 09:00 05/27/17 09:20 (Milk Of Magnesia Liq) 30 ml Q12H PRN PO 05/20/17 01:45 (Senokot) 17.2 mg Q12H PRN PO 05/20/17 01:45 (Dulcolax Supp) 10 mg DAILY PRN RECTAL 05/20/17 01:45 (Lactulose Liq) 30 ml DAILY PRN PO 05/20/17 01:45 (Symbicort 160-4.5 Mcg Inh) 1 puff Q12HR INH 05/20/17 09:00 05/27/17 11:17 (Lasix) 40 mg BID PO 05/20/17 09:00 05/27/17 09:23 (Neurontin) 100 mg TID PO 05/20/17 09:00 05/27/17 17:42 (Percocet 5-325 Mg) 1 tab Q6H PRN PO 05/20/17 01:45 05/21/17 08:17 (KCl) 10 meq DAILY PO 05/20/17 09:00 05/27/17 09:20 (Zoloft) 100 mg DAILY PO 05/20/17 09:00 05/27/17 09:20 (Pravachol) 80 mg HS PO 05/20/17 21:00 05/26/17 22:18 (D50w (Vial) Inj) 50 ml UNSCH PRN IV PUSH 05/20/17 01:45 (Glucagon Inj) 1 mg UNSCH PRN OTHER 05/20/17 01:45 (Cardizem) 60 mg Q6HR PO 05/20/17 15:00 05/27/17 17:42 Miscellaneous Information Patient in critical care unit? Ass... Q361D .XX 05/20/17 20:30 05/20/17 20:30 (NovoLOG SUPPLEMENTAL SCALE) 1 ACHS SLIDING SCALE SQ 05/23/17 17:00 05/27/17 17:43 (Levemir Inj) 8 units DAILY SQ 05/24/17 09:00 05/27/17 09:00 (SoluMEDROL INJ) 40 mg Q12HR IV PUSH 05/24/17 21:00 05/27/17 09:20 (Duoneb Neb) 1 ampule Q4HR NEB NEB 05/24/17 12:00 05/27/17 16:33 (Duoneb Neb) 1 ampule Q2HR NEB PRN NEB 05/24/17 11:00 (Coumadin) 7.5 mg DAILY@1600 PO 05/25/17 17:17 05/27/17 17:42 (Levaquin) 750 mg DAILY PO 05/26/17 16:00 05/30/17 10:00 05/27/17 09:20 (Lopressor) 50 mg BID PO 05/26/17 21:00 05/27/17 09:20 A/P Assessment and Plan (1) COPD exacerbation ICD Code: J44.1 - Chronic obstructive pulmonary disease with (acute) exacerbation (2) Diabetes mellitus ICD Code: E11.9 - Type 2 diabetes mellitus without complications (3) Chronic systolic CHF (congestive heart failure) ICD Code: I50.22 - Chronic systolic (congestive) heart failure (4) Hypertension ICD Code: I10 - Essential (primary) hypertension (5) Hyperlipidemia ICD Code: E78.5 - Hyperlipidemia, unspecified (6) Atrial fibrillation with RVR ICD Code: I48.91 - Unspecified atrial fibrillation Status: Acute (7) Pneumonia ICD Code: J18.9 - Pneumonia, unspecified organism Status: Acute (8) Shortness of breath ICD Code: R06.02 - Shortness of breath Status: Acute (9) Sepsis ICD Code: A41.9 - Sepsis, unspecified organism (10) Acute kidney injury ICD Code: N17.9 - Acute kidney failure, unspecified 1. Atrial fibrillation with RVR: Transitioned from Cardizem drip to oral Cardizem. Rate improved at rest, but she becomes tachycardic to the 120s with any activity. Coumadin for anticoagulation. also continue Metoprolol. her INR today 1.3 will continue Warfarin 2. Sepsis, pneumonia, bacteremia: Patient met criteria for sepsis upon admission with tachycardia, leukocytosis. Continue antibiotics. Continue supplemental oxygen. Blood cultures growing Haemophilus influenza and coag negative Staphylococcus. ID following. recommended Levaquin 750 mg daily for five more days. 3. COPD exacerbation with acute respiratory failure: Continue supplemental oxygen, bronchodilators, steroids. 4. Chronic systolic congestive heart failure: Continue Lasix. Echocardiogram shows EF 30-35%. Cardiology following. recommended to add CYNTHIA inhibitor once his blood pressure normalizes, at this time continue with low blood pressure will need to follow with loss prevention specialist at discharge. 5. Diabetes mellitus: Monitor Accu-Cheks and cover with sliding scale insulin. her uncontrol may be related to Steroid use discontinued IV Steroids and transferred to by mouth Prednisone titrated dosages, will go home with usual dosages of Insulin and sliding scale. 6. Hyperlipidemia: Continue statin. 7. Acute kidney injury: Improved. Urine output has improved. 8. Anemia Hemoglobin improving 9. Morbid Obesity strongly recommended diet and exercise. DVT prophylaxis: on Coumadin. INR 1.3 CODE STATUS: Full code. Discharge Planning Expected by Tomorrow. Ky Cook MD May 27, 2017 18:08
[2017-05-27] MEDS: PRAVASTATIN SOD 40 MG TAB PO SCH (21:53)
[2017-05-28] VITALS (20 sets, daily range): BP systolic 119–142; BP diastolic 65–89; PULSE 81–98; RESP 16–20; TEMP 97–98.5; O2SAT 92–97
[2017-05-28] MEDS: DILTIAZEM HCL 60 MG TAB PO SCH ×5 (00:10→23:37)
[2017-05-28] MEDS: RESP: ALBUTEROL 2.5 MG/IPRATROPIUM 0.5 MG NEB (SCH) NEB ×4 (00:13→11:15)
--- NOTE | 2017-05-28 00:28 | PD.CARD.PN ---
Subjective Subjective Remarks Patient was seen earlier on 05/27, late entry No events overnight No chest pain SOB getting better Heart rates better Objective Medications Current Medications Medications (Trade) Dose Ordered Sig/Carmen Route Start Time Stop Time Status Last Admin (Duoneb Neb) 1 ampule Q4HR NEB PRN NEB 05/20/17 01:45 05/21/17 16:44 (NS Flush) 2 ml UNSCH PRN IV FLUSH 05/20/17 01:45 (NS Flush) 2 ml BID IV FLUSH 05/20/17 09:00 05/27/17 21:52 (Zofran Inj) 4 mg Q6H PRN IVP 05/20/17 01:45 (Narcan Inj) 0.4 mg UNSCH PRN IV PUSH 05/20/17 01:45 (Basilia-Colace) 1 tab BID PO 05/20/17 09:00 05/27/17 09:20 (Milk Of Magnesia Liq) 30 ml Q12H PRN PO 05/20/17 01:45 (Senokot) 17.2 mg Q12H PRN PO 05/20/17 01:45 (Dulcolax Supp) 10 mg DAILY PRN RECTAL 05/20/17 01:45 (Lactulose Liq) 30 ml DAILY PRN PO 05/20/17 01:45 (Symbicort 160-4.5 Mcg Inh) 1 puff Q12HR INH 05/20/17 09:00 05/27/17 21:52 (Lasix) 40 mg BID PO 05/20/17 09:00 05/27/17 21:53 (Neurontin) 100 mg TID PO 05/20/17 09:00 05/27/17 17:42 (Percocet 5-325 Mg) 1 tab Q6H PRN PO 05/20/17 01:45 05/21/17 08:17 (KCl) 10 meq DAILY PO 05/20/17 09:00 05/27/17 09:20 (Zoloft) 100 mg DAILY PO 05/20/17 09:00 05/27/17 09:20 (Pravachol) 80 mg HS PO 05/20/17 21:00 05/27/17 21:53 (D50w (Vial) Inj) 50 ml UNSCH PRN IV PUSH 05/20/17 01:45 (Glucagon Inj) 1 mg UNSCH PRN OTHER 05/20/17 01:45 (Cardizem) 60 mg Q6HR PO 05/20/17 15:00 05/28/17 00:10 Miscellaneous Information Patient in critical care unit? Ass... Q361D .XX 05/20/17 20:30 05/20/17 20:30 (NovoLOG SUPPLEMENTAL SCALE) 1 ACHS SLIDING SCALE SQ 05/23/17 17:00 05/27/17 21:53 (Levemir Inj) 8 units DAILY SQ 05/24/17 09:00 05/27/17 09:00 (Duoneb Neb) 1 ampule Q4HR NEB NEB 05/24/17 12:00 05/28/17 00:13 (Duoneb Neb) 1 ampule Q2HR NEB PRN NEB 05/24/17 11:00 (Coumadin) 7.5 mg DAILY@1600 PO 05/25/17 17:17 05/27/17 17:42 (Levaquin) 750 mg DAILY PO 05/26/17 16:00 05/30/17 10:00 05/27/17 09:20 (Lopressor) 50 mg BID PO 05/26/17 21:00 05/27/17 21:54 (Deltasone) 30 mg DAILY PO 05/28/17 09:00 (Levemir Inj) 10 units HS SQ 05/27/17 21:00 05/27/17 21:00 Vital Signs / I&O Vital Signs Date Time Temp Pulse Resp B/P (MAP) Pulse Ox O2 Delivery O2 Flow Rate FiO2 05/27/17 19:42 94 Nasal Cannula 2.00 05/27/17 17:46 97.8 89 20 132/69 (90) 94 05/27/17 17:08 Nasal Cannula 2.00 05/27/17 11:19 97.1 84 18 119/69 (86) 93 05/27/17 08:12 97.4 92 18 141/74 (96) 05/27/17 07:50 94 Nasal Cannula 2.00 05/27/17 06:00 91 05/27/17 05:00 91 05/27/17 04:00 97.8 89 18 132/77 (95) 94 05/27/17 04:00 88 05/27/17 03:00 83 05/27/17 02:00 82 05/27/17 01:00 86 I/O 05/27/17 05/27/17 05/27/17 05/28/17 05/28/17 05/28/17 07:00 15:00 23:00 07:00 15:00 23:00 Intake Total 240 ml Output Total 300 ml 600 ml Balance -60 ml -600 ml Intake Oral 240 ml Output Urine Total 300 ml 600 ml # Voids 2 # Bowel Movements 0 1 Physical Exam GENERAL: NAD SKIN: Warm and dry. HEAD: Atraumatic. Normocephalic. EYES: Pupils equal and round. No scleral icterus. No injection or drainage. ENT: No nasal bleeding or discharge. Mucous membranes pink and moist. NECK: Trachea midline. No JVD. CARDIOVASCULAR: Irregularly irregular RESPIRATORY: No accessory muscle use. Decreased breath sounds bilaterally GASTROINTESTINAL: Abdomen soft, non-tender, nondistended. Hepatic and splenic margins not palpable. MUSCULOSKELETAL: 2+ edema, chronic in nature NEUROLOGICAL: Awake and alert. No obvious cranial nerve deficits. Motor grossly within normal limits. Five out of 5 muscle strength in the arms and legs. Normal speech. PSYCHIATRIC: Appropriate mood and affect; insight and judgment normal. Assessment and Plan Problem List: (1) COPD exacerbation ICD Codes: J44.1 - Chronic obstructive pulmonary disease with (acute) exacerbation (2) Chronic systolic CHF (congestive heart failure) ICD Codes: I50.22 - Chronic systolic (congestive) heart failure (3) Atrial fibrillation with RVR ICD Codes: I48.91 - Unspecified atrial fibrillation Status: Acute (4) Hypertension ICD Codes: I10 - Essential (primary) hypertension (5) Hyperlipidemia ICD Codes: E78.5 - Hyperlipidemia, unspecified (6) Diabetes mellitus ICD Codes: E11.9 - Type 2 diabetes mellitus without complications (7) Shortness of breath ICD Codes: R06.02 - Shortness of breath Status: Acute Assessment and Plan 1) Afib now with CVR Con't Cardizem/Metoprolol, increased Lopressor to 50mg BID RVR may be due to increased sympathetics 2) PNA/COPD per primary/pulm 3) EF 30-35% Con't BB, will add CYNTHIA-I once more stable as blood pressure borderline low 4) Drop in Hgb Plan for Hemoccult stool 5) INR elevated ? secondary to Coumadin with anti-biotics Since has normalized Bong Tinsley DO May 28, 2017 00:28
[2017-05-28] MEDS: INSULIN DETEMIR 100 UNITS/ML VIAL SQ SCH ×2 (08:49→21:28)
[2017-05-28] MEDS: INSULIN ASPART SUPPLEMENTAL SCALE SQ SCH ×4 (08:49→21:00)
[2017-05-28] MEDS: BUDESONIDE-FORMOTEROL 160/4.5 MCG INHALER INH SCH ×2 (08:49→21:28)
[2017-05-28] MEDS: SERTRALINE HCL 100 MG TAB PO SCH (08:50)
[2017-05-28] MEDS: predniSONE 10 MG TAB PO SCH (08:50)
[2017-05-28] MEDS: GABAPENTIN 100 MG CAP PO SCH ×3 (08:50→18:06)
[2017-05-28] MEDS: FUROSEMIDE 40 MG TAB PO SCH ×2 (08:50→21:27)
[2017-05-28] MEDS: POTASSIUM CHLORIDE 10 MEQ CAP PO SCH (08:50)
[2017-05-28] MEDS: DOCUSATE SODIUM 50 MG/SENNA 8.6 MG TAB PO SCH ×2 (08:50→21:00)
[2017-05-28] MEDS: METOPROLOL TARTRATE 50 MG TAB PO SCH ×2 (08:50→21:27)
[2017-05-28] MEDS: LEVOFLOXACIN 750 MG TAB PO SCH (08:50)
[2017-05-28] MEDS: SODIUM CHLORIDE 0.9% FLUSH 10 ML FLUSH IV FLUSH SCH ×2 (08:53→21:00)
[2017-05-28] MEDS ORDERED: OXYC1TAB63 PO (10:46)
[2017-05-28] MEDS ORDERED: LEVA750T9 PO (10:46)
[2017-05-28] MEDS ORDERED: DILT60TA33 PO (10:46)
[2017-05-28] MEDS ORDERED: PRED10 PO (10:46)
--- NOTE | 2017-05-28 10:59 | HHI.PR ---
Subjective Remarks Follow-up sepsis, bacteremia, pneumonia. Cardiology following for Atrial Fibrillation with Controlled Ventricular rate, continue management for Pneumonia, as oer ID to continue antibiotics for Haemophilus influenzae and Staphylococcus Coagulase negative source most likely pneumonia, to continue Ceftriaxone, Azithromycin, repeat blood cultures if continue doing well planned to switch to by mouth Levaquin by ID. 05/27: seen in her bedroom, no complaint, will go to SNF tomorrow if cleared by counterintelligence specialist. 05/28: Patient seen in her bedroom, discussed through the phone by Nurse with Doctor Valentina counterintelligence specialist and with Doctor Laureano wade to discharge patient, she refused going to SNF and was switched to home with [facility] explained the possible consequences of her decision, but she decided to go home and emphatically refused going to SNF. no nausea, vomit or diarrhea, will go home on HH and continue taking her Warfarin 10 mg daily and daily PT and INR by Skilled nurse, follow with Cardiology and counterintelligence specialist as outpatient. Objective Vital Signs Date Time Temp Pulse Resp B/P (MAP) Pulse Ox O2 Delivery O2 Flow Rate FiO2 05/28/17 08:06 97 Nasal Cannula 2.00 05/28/17 08:00 98.0 97 20 119/72 (88) 94 05/28/17 06:00 92 05/28/17 05:00 92 05/28/17 04:00 85 05/28/17 03:00 81 05/28/17 03:00 97.0 81 16 141/83 (102) 95 05/28/17 02:00 86 05/28/17 01:00 88 05/28/17 00:00 95 Nasal Cannula 2.00 05/28/17 00:00 88 05/28/17 00:00 97.3 89 16 129/65 (86) 95 05/27/17 23:00 94 05/27/17 22:00 118 05/27/17 21:00 110 05/27/17 20:00 92 05/27/17 20:00 97.6 92 18 131/71 (91) 93 05/27/17 20:00 93 Nasal Cannula 2.00 05/27/17 19:42 94 Nasal Cannula 2.00 05/27/17 19:00 86 05/27/17 17:46 97.8 89 20 132/69 (90) 94 3/13/18 17:08 Nasal Cannula 2.00 05/27/17 11:19 97.1 84 18 119/69 (86) 93 I/O 05/27/17 05/27/17 05/27/17 05/28/17 05/28/17 05/28/17 07:00 15:00 23:00 07:00 15:00 23:00 Intake Total 240 ml 360 ml Output Total 300 ml 600 ml 1900 ml Balance -60 ml -600 ml -1540 ml Intake Oral 240 ml 360 ml Output Urine Total 300 ml 600 ml 1900 ml # Voids 2 # Bowel Movements 0 1 0 Result Diagram: 05/26/17 1016 05/26/17 0440 Imaging Last Impressions Chest X-Ray 05/25/17 0948 Signed Impressions: Service Date/Time: Thursday, May 25, 2017 10:01 - CONCLUSION: Improving chest with resolving left-sided airspace disease. John James MD Procedures None Other Results Laboratory Tests Test 05/19/17 19:50 05/19/17 19:55 05/20/17 09:07 05/23/17 04:00 Dohle Bodies PRESENT Activated Partial Thromboplast Time 45.5 SEC Blood Urea Nitrogen 39 MG/DL 40 MG/DL Creatinine 1.09 MG/DL 0.75 MG/DL Random Glucose 173 MG/DL 270 MG/DL Total Protein 7.8 GM/DL Albumin 3.1 GM/DL Calcium Level 9.6 MG/DL 8.9 MG/DL Magnesium Level 1.8 MG/DL 2.0 MG/DL Alkaline Phosphatase 99 U/L Aspartate Amino Transf (AST/SGOT) 7 U/L Alanine Aminotransferase (ALT/SGPT) 12 U/L Total Bilirubin 1.0 MG/DL Sodium Level 135 MEQ/L 141 MEQ/L Potassium Level 3.8 MEQ/L 4.6 MEQ/L Chloride Level 98 MEQ/L 103 MEQ/L Carbon Dioxide Level 26.1 MEQ/L 31.8 MEQ/L Total Creatine Kinase 45 U/L Troponin I LESS THAN 0.02 NG/ML B-Type Natriuretic Peptide 35 PG/ML Lipase 46 U/L Thyroid Stimulating Hormone 3rd Gen 1.350 uIU/ML B-Hydroxybutyrate 1.17 MMOL/L Lactic Acid Level 1.8 mmol/L Blood Gas Puncture Site RT RADIAL Blood Gas Patient Temperature 98.6 Blood Gas HCO3 26 mmol/L Blood Gas Base Excess 0.7 mmol/L Blood Gas Oxygen Saturation 94 % Arterial Blood pH 7.34 Arterial Blood Partial Pressure CO2 50 mmHg Arterial Blood Partial Pressure O2 81 mmHG Arterial Blood Oxygen Content 15.8 Vol % Arterial Blood Carboxyhemoglobin 1.0 % Arterial Blood Methemoglobin 0.7 % Blood Gas Hemoglobin 11.9 G/DL Oxygen Delivery Device PNRB Blood Gas Liter Flow 15 L/M Metamyelocytes 3 % Spherocytes 1+ Phosphorus Level 3.4 MG/DL Test 05/24/17 04:25 05/26/17 04:40 05/26/17 10:16 Basophilic Stippling FAINT Ovalocytes 1+ Prothrombin Time 13.3 SEC Prothromb Time International Ratio 1.3 RATIO Blood Urea Nitrogen 37 MG/DL Creatinine 0.77 MG/DL Random Glucose 342 MG/DL Calcium Level 8.6 MG/DL Sodium Level 136 MEQ/L Potassium Level 4.3 MEQ/L Chloride Level 94 MEQ/L Carbon Dioxide Level 36.7 MEQ/L Anion Gap 5 MEQ/L Estimat Glomerular Filtration Rate 74 ML/MIN White Blood Count 21.8 TH/MM3 Red Blood Count 4.97 MIL/MM3 Hemoglobin 12.2 GM/DL Hematocrit 38.2 % Mean Corpuscular Volume 76.8 FL Mean Corpuscular Hemoglobin 24.6 PG Mean Corpuscular Hemoglobin Concent 32.1 % Red Cell Distribution Width 18.6 % Platelet Count 182 TH/MM3 Mean Platelet Volume 8.3 FL Neutrophils (%) (Auto) 95.5 % Lymphocytes (%) (Auto) 3.2 % Monocytes (%) (Auto) 1.2 % Eosinophils (%) (Auto) 0.0 % Basophils (%) (Auto) 0.1 % Neutrophils # (Auto) 20.8 TH/MM3 Lymphocytes # (Auto) 0.7 TH/MM3 Monocytes # (Auto) 0.3 TH/MM3 Eosinophils # (Auto) 0.0 TH/MM3 Basophils # (Auto) 0.0 TH/MM3 CBC Comment AUTO DIFF Differential Total Cells Counted 100 Neutrophils % (Manual) 82 % Band Neutrophils % 8 % Lymphocytes % 5 % Monocytes % 2 % Basophils % 1 % Neutrophils # (Manual) 20.1 TH/MM3 Myelocytes 2 % Differential Comment FINAL DIFF MANUAL Platelet Estimate NORMAL Platelet Morphology Comment CLUMPED Objective Remarks General: Obese female in no acute distress. Heart: Irregular, tachycardic. No murmur. Lungs: Decreased breath sounds throughout. No wheezes noted. Breathing is nonlabored. Abdomen: Soft, nontender, nondistended. Extremities: Chronic bilateral lower extremity edema with venous stasis changes. Psych: Alert, oriented. Medications and IVs Current Medications Medications (Trade) Dose Ordered Sig/Carmen Route Start Time Stop Time Status Last Admin (Duoneb Neb) 1 ampule Q4HR NEB PRN NEB 05/20/17 01:45 05/21/17 16:44 (NS Flush) 2 ml UNSCH PRN IV FLUSH 05/20/17 01:45 (NS Flush) 2 ml BID IV FLUSH 05/20/17 09:00 05/28/17 08:53 (Zofran Inj) 4 mg Q6H PRN IVP 05/20/17 01:45 (Narcan Inj) 0.4 mg UNSCH PRN IV PUSH 05/20/17 01:45 (Basilia-Colace) 1 tab BID PO 05/20/17 09:00 05/28/17 08:50 (Milk Of Magnesia Liq) 30 ml Q12H PRN PO 05/20/17 01:45 (Senokot) 17.2 mg Q12H PRN PO 05/20/17 01:45 (Dulcolax Supp) 10 mg DAILY PRN RECTAL 05/20/17 01:45 (Lactulose Liq) 30 ml DAILY PRN PO 05/20/17 01:45 (Symbicort 160-4.5 Mcg Inh) 1 puff Q12HR INH 05/20/17 09:00 05/28/17 08:49 (Lasix) 40 mg BID PO 05/20/17 09:00 05/28/17 08:50 (Neurontin) 100 mg TID PO 05/20/17 09:00 05/28/17 08:50 (Percocet 5-325 Mg) 1 tab Q6H PRN PO 05/20/17 01:45 05/21/17 08:17 (KCl) 10 meq DAILY PO 05/20/17 09:00 05/28/17 08:50 (Zoloft) 100 mg DAILY PO 05/20/17 09:00 05/28/17 08:50 (Pravachol) 80 mg HS PO 05/20/17 21:00 05/27/17 21:53 (D50w (Vial) Inj) 50 ml UNSCH PRN IV PUSH 05/20/17 01:45 (Glucagon Inj) 1 mg UNSCH PRN OTHER 05/20/17 01:45 (Cardizem) 60 mg Q6HR PO 05/20/17 15:00 05/28/17 05:48 Miscellaneous Information Patient in critical care unit? Ass... Q361D .XX 05/20/17 20:30 05/20/17 20:30 (NovoLOG SUPPLEMENTAL SCALE) 1 ACHS SLIDING SCALE SQ 05/23/17 17:00 05/28/17 08:49 (Levemir Inj) 8 units DAILY SQ 05/24/17 09:00 05/28/17 08:49 (Duoneb Neb) 1 ampule Q4HR NEB NEB 05/24/17 12:00 05/28/17 08:06 (Duoneb Neb) 1 ampule Q2HR NEB PRN NEB 05/24/17 11:00 (Coumadin) 7.5 mg DAILY@1600 PO 05/25/17 17:17 05/27/17 17:42 (Levaquin) 750 mg DAILY PO 05/26/17 16:00 05/30/17 10:00 05/28/17 08:50 (Lopressor) 50 mg BID PO 05/26/17 21:00 05/28/17 08:50 (Deltasone) 30 mg DAILY PO 05/28/17 09:00 05/28/17 08:50 (Levemir Inj) 10 units HS SQ 05/27/17 21:00 05/27/17 21:00 A/P Assessment and Plan (1) COPD exacerbation ICD Code: J44.1 - Chronic obstructive pulmonary disease with (acute) exacerbation (2) Diabetes mellitus ICD Code: E11.9 - Type 2 diabetes mellitus without complications (3) Chronic systolic CHF (congestive heart failure) ICD Code: I50.22 - Chronic systolic (congestive) heart failure (4) Hypertension ICD Code: I10 - Essential (primary) hypertension (5) Hyperlipidemia ICD Code: E78.5 - Hyperlipidemia, unspecified (6) Atrial fibrillation with RVR ICD Code: I48.91 - Unspecified atrial fibrillation Status: Acute (7) Pneumonia ICD Code: J18.9 - Pneumonia, unspecified organism Status: Acute (8) Shortness of breath ICD Code: R06.02 - Shortness of breath Status: Acute (9) Sepsis ICD Code: A41.9 - Sepsis, unspecified organism (10) Acute kidney injury ICD Code: N17.9 - Acute kidney failure, unspecified 1. Atrial fibrillation with RVR: Transitioned from Cardizem drip to oral Cardizem. Rate improved at rest, but she becomes tachycardic to the 120s with any activity. Coumadin for anticoagulation. also continue Metoprolol. her INR today 1.3 will continue Warfarin at 10 mg daily, and will be followed by skilled nurse daily PT and INR INR goal 2 to 3 and hold Warfarin if INR in 3 or over. Increased Metoprolol to 50 mg BID by desktop support specialist. 2. Sepsis, pneumonia, bacteremia: Patient met criteria for sepsis upon admission with tachycardia, leukocytosis. Continue antibiotics. Continue supplemental oxygen. Blood cultures growing Haemophilus influenza and coag negative Staphylococcus. ID following. recommended Levaquin 750 mg daily for five more days. will give for three days to complete the five days recommended by ID specialist. 3. COPD exacerbation with acute respiratory failure: Continue supplemental oxygen, bronchodilators, switch to by mouth Prednisone and titrated dosages. 4. Chronic systolic congestive heart failure: Continue Lasix. Echocardiogram shows EF 30-35%. Cardiology following. recommended to add CYNTHIA inhibitor once his blood pressure normalizes, at this time continue with low blood pressure will need to follow with desktop support specialist at discharge. 5. Diabetes mellitus: Monitor Accu-Cheks and cover with sliding scale insulin. her uncontrol may be related to Steroid use discontinued IV Steroids and transferred to by mouth Prednisone titrated dosages, will go home with usual dosages of Insulin and sliding scale. 6. Hyperlipidemia: Continue statin. 7. Acute kidney injury: Improved. Urine output has improved. 8. Anemia Hemoglobin improving 9. Morbid Obesity strongly recommended diet and exercise. 10. Coagulopathy secondary to Warfarin improved. DVT prophylaxis: on Coumadin. INR 1.3 CODE STATUS: Full code. Discharge Planning Discharge Home today Home on [facility] for Physical Therapy and Skilled nurse continue PT and INR check daily and hold Warfarin if INR in 3 or over. Ky Cook MD May 28, 2017 10:59
[2017-05-28] MEDS ORDERED: METO-309 PO (11:07)
--- NOTE | 2017-05-28 11:08 | HHI.FF ---
Face to Face Verification Diagnosis: (1) Shortness of breath (2) Acute kidney injury (3) Atrial fibrillation with RVR (4) Chronic systolic CHF (congestive heart failure) (5) Sepsis (6) Pneumonia (7) COPD exacerbation Physical Therapy Order: Evaluate and Treat, Improve ambulation, Strength and gait training Home Health Nursing Order: Medical education Signs/symptoms of disease process Diabetic education CHF education Oxygen administration education Medication education-adverse effect Nursing assessment with vital signs I have seen patient Corin Sheppard on 05/28/17. My clinical findings support the need for the requested home health care services because: Ltd mobility - disease progression I certify that my clinical findings support that this patient is homebound because: Unsafe to leave home unassisted Ky Cook MD May 28, 2017 11:08
--- NOTE | 2017-05-28 11:17 | HHI.DS ---
Discharge Summary Admission Date May 19, 2017 at 23:31 Discharge Date: May 28, 2017 Admitting Diagnosis Afib with RVR, Pneumonia, COPD exacerbation (1) COPD exacerbation ICD Code: J44.1 - Chronic obstructive pulmonary disease with (acute) exacerbation Diagnosis: Principal (2) Diabetes mellitus ICD Code: E11.9 - Type 2 diabetes mellitus without complications Diagnosis: Principal (3) Chronic systolic CHF (congestive heart failure) ICD Code: I50.22 - Chronic systolic (congestive) heart failure Diagnosis: Principal (4) Hypertension ICD Code: I10 - Essential (primary) hypertension Diagnosis: Secondary (5) Hyperlipidemia ICD Code: E78.5 - Hyperlipidemia, unspecified Diagnosis: Secondary (6) Atrial fibrillation with RVR ICD Code: I48.91 - Unspecified atrial fibrillation Diagnosis: Principal Status: Acute (7) Pneumonia ICD Code: J18.9 - Pneumonia, unspecified organism Diagnosis: Principal Status: Acute (8) Shortness of breath ICD Code: R06.02 - Shortness of breath Diagnosis: Principal Status: Acute (9) Sepsis ICD Code: A41.9 - Sepsis, unspecified organism Diagnosis: Principal (10) Acute kidney injury ICD Code: N17.9 - Acute kidney failure, unspecified Diagnosis: Principal Procedures None Brief History - From Admission Extent 7-year-old female who presented to the emergency department with complaint of pain on her left side. She also reports shortness of breath, cough , congestion. Symptoms started about 4 days ago. Cough is productive of sputum. Patient states that she recently moved to the area from [place] and has not established with a beauty culturist apprentice or environmental health and safety manager. She reports history of atrial fibrillation, congestive heart failure, COPD. She does feel a little better this morning than she did overnight. Per nursing, patient was quite confused earlier this morning, but is much more alert now. CBC/BMP: 05/26/17 1016 05/26/17 0440 Significant Findings Laboratory Tests Test 05/26/17 04:40 05/26/17 10:16 Prothrombin Time 13.3 SEC (9.8-11.6) Blood Urea Nitrogen 37 MG/DL (7-18) Random Glucose 342 MG/DL (74-106) Chloride Level 94 MEQ/L (98-107) Carbon Dioxide Level 36.7 MEQ/L (21.0-32.0) Estimat Glomerular Filtration Rate 74 ML/MIN (>89) White Blood Count 21.8 TH/MM3 (4.0-11.0) Mean Corpuscular Volume 76.8 FL (80.0-100.0) Mean Corpuscular Hemoglobin 24.6 PG (27.0-34.0) Red Cell Distribution Width 18.6 % (11.6-17.2) Neutrophils (%) (Auto) 95.5 % (16.0-70.0) Lymphocytes (%) (Auto) 3.2 % (9.0-44.0) Neutrophils # (Auto) 20.8 TH/MM3 (1.8-7.7) Lymphocytes # (Auto) 0.7 TH/MM3 (1.0-4.8) Neutrophils % (Manual) 82 % (16-70) Band Neutrophils % 8 % (0-6) Lymphocytes % 5 % (9-44) Neutrophils # (Manual) 20.1 TH/MM3 (1.8-7.7) Myelocytes 2 % (0-0) Platelet Morphology Comment CLUMPED (NORMAL) Imaging Last Impressions Chest X-Ray 05/25/17 0948 Signed Impressions: Service Date/Time: Thursday, May 25, 2017 10:01 - CONCLUSION: Improving chest with resolving left-sided airspace disease. John James MD PE at Discharge General: Obese female in no acute distress. Heart: Irregular, tachycardic. No murmur. Lungs: Decreased breath sounds throughout. No wheezes noted. Breathing is nonlabored. Abdomen: Soft, nontender, nondistended. Extremities: Chronic bilateral lower extremity edema with venous stasis changes. Psych: Alert, oriented. Hospital Course Follow-up sepsis, bacteremia, pneumonia. Cardiology following for Atrial Fibrillation with Controlled Ventricular rate, continue management for Pneumonia, as oer ID to continue antibiotics for Haemophilus influenzae and Staphylococcus Coagulase negative source most likely pneumonia, to continue Ceftriaxone, Azithromycin, repeat blood cultures if continue doing well planned to switch to by mouth Levaquin by ID. 05/27: seen in her bedroom, no complaint, will go to SNF tomorrow if cleared by forensic specialist. 05/28: Patient seen in her bedroom, discussed through the phone by Nurse with Doctor Valentina forensic specialist and with Doctor Laureano wade to discharge patient, she refused going to SNF and was switched to home with [facility] explained the possible consequences of her decision, but she decided to go home and emphatically refused going to SNF. no nausea, vomit or diarrhea, will go home on [facility] and continue taking her Warfarin 10 mg daily and daily PT and INR by Skilled nurse, follow with Cardiology and forensic specialist as outpatient. Assessment and Plan 1. Atrial fibrillation with RVR: Transitioned from Cardizem drip to oral Cardizem. Rate improved at rest, but she becomes tachycardic to the 120s with any activity. Coumadin for anticoagulation. also continue Metoprolol. her INR today 1.3 will continue Warfarin at 10 mg daily, and will be followed by skilled nurse daily PT and INR INR goal 2 to 3 and hold Warfarin if INR in 3 or over. Increased Metoprolol to 50 mg BID by receiving specialist. 2. Sepsis, pneumonia, bacteremia: Patient met criteria for sepsis upon admission with tachycardia, leukocytosis. Continue antibiotics. Continue supplemental oxygen. Blood cultures growing Haemophilus influenza and coag negative Staphylococcus. ID following. recommended Levaquin 750 mg daily for five more days. will give for three days to complete the five days recommended by ID specialist. 3. COPD exacerbation with acute respiratory failure: Continue supplemental oxygen, bronchodilators, switch to by mouth Prednisone and titrated dosages. 4. Chronic systolic congestive heart failure: Continue Lasix. Echocardiogram shows EF 30-35%. Cardiology following. recommended to add CYNTHIA inhibitor once his blood pressure normalizes, at this time continue with low blood pressure will need to follow with receiving specialist at discharge. 5. Diabetes mellitus: Monitor Accu-Cheks and cover with sliding scale insulin. her uncontrol may be related to Steroid use discontinued IV Steroids and transferred to by mouth Prednisone titrated dosages, will go home with usual dosages of Insulin and sliding scale. 6. Hyperlipidemia: Continue statin. 7. Acute kidney injury: Improved. Urine output has improved. 8. Anemia Hemoglobin improving 9. Morbid Obesity strongly recommended diet and exercise. 10. Coagulopathy secondary to Warfarin improved. DVT prophylaxis: on Coumadin. INR 1.3 CODE STATUS: Full code. Discharge Planning Discharge Home today Home on [facility] for Physical Therapy and Skilled nurse continue PT and INR check daily and hold Warfarin if INR in 3 or over. Pt Condition on Discharge: Good Discharge Disposition: Disch w/ Home Health Serv Discharge Time: > 30 minutes Discharge Instructions DIET: Follow Instructions for: Heart Healthy Diet, Diabetic Diet Activities you can perform: Regular-No Restrictions Ky Cook MD May 28, 2017 11:17
--- NOTE | 2017-05-28 16:23 | HHI.PR ---
Subjective Remarks ALERT NO ACUTE DISTRESS ON O2 Objective Vital Signs Date Time Temp Pulse Resp B/P (MAP) Pulse Ox O2 Delivery O2 Flow Rate FiO2 05/28/17 12:04 92 05/28/17 12:00 97.8 93 20 135/82 (99) 94 05/28/17 08:06 97 Nasal Cannula 2.00 05/28/17 08:00 98.0 97 20 119/72 (88) 94 05/28/17 08:00 91 05/28/17 06:00 92 05/28/17 05:00 92 05/28/17 04:00 85 05/28/17 03:00 81 05/28/17 03:00 97.0 81 16 141/83 (102) 95 05/28/17 02:00 86 05/28/17 01:00 88 05/28/17 00:00 95 Nasal Cannula 2.00 05/28/17 00:00 88 05/28/17 00:00 97.3 89 16 129/65 (86) 95 05/27/17 23:00 94 05/27/17 22:00 118 05/27/17 21:00 110 05/27/17 20:00 92 05/27/17 20:00 97.6 92 18 131/71 (91) 93 05/27/17 20:00 93 Nasal Cannula 2.00 05/27/17 19:42 94 Nasal Cannula 2.00 05/27/17 19:00 86 05/27/17 17:46 97.8 89 20 132/69 (90) 94 05/27/17 17:08 Nasal Cannula 2.00 I/O 05/27/17 05/27/17 05/27/17 05/28/17 05/28/17 05/28/17 07:00 15:00 23:00 07:00 15:00 23:00 Intake Total 240 ml 360 ml Output Total 300 ml 600 ml 1900 ml Balance -60 ml -600 ml -1540 ml Intake Oral 240 ml 360 ml Output Urine Total 300 ml 600 ml 1900 ml # Voids 2 # Bowel Movements 0 1 0 Result Diagram: 05/26/17 1016 05/26/17 0440 Procedures None Objective Remarks GENERAL: SKIN: Warm and dry. HEAD: Atraumatic. Normocephalic. EYES: Pupils equal and round. No scleral icterus. No injection or drainage. ENT: No nasal bleeding or discharge. Mucous membranes pink and moist. NECK: Trachea midline. No JVD. CARDIOVASCULAR: Regular rate and rhythm. RESPIRATORY: No accessory muscle use. Clear to auscultation. Breath sounds equal bilaterally. GASTROINTESTINAL: Abdomen soft, non-tender, nondistended. Hepatic and splenic margins not palpable. MUSCULOSKELETAL: Extremities without clubbing, cyanosis, or edema. No obvious deformities. NEUROLOGICAL: Awake and alert. No obvious cranial nerve deficits. Motor grossly within normal limits. Five out of 5 muscle strength in the arms and legs. Normal speech. PSYCHIATRIC: Appropriate mood and affect; insight and judgment normal. Assessment and Plan Assessment and Plan ASSESSMENT COPD EXACERBATION RESPIRATORY FAILURE AFIB HTN HND CHF PLAN O2 / has home o2 BRONCHODILATORS INCREASE ACTIVITY may d/c pulmonary wiseoffice 2 weeks office 1 week Valentina Montgomery MD May 28, 2017 16:23
[2017-05-28] MEDS: WARFARIN SOD 7.5 MG TAB PO SCH (16:33)
--- NOTE | 2017-05-28 16:58 | PD.CARD.PN ---
Subjective Subjective Remarks No events overnight No chest pain SOB getting better Heart rates stable Objective Medications Current Medications Medications (Trade) Dose Ordered Sig/Carmen Route Start Time Stop Time Status Last Admin (Duoneb Neb) 1 ampule Q4HR NEB PRN NEB 05/20/17 01:45 05/21/17 16:44 (NS Flush) 2 ml UNSCH PRN IV FLUSH 05/20/17 01:45 (NS Flush) 2 ml BID IV FLUSH 05/20/17 09:00 05/28/17 08:53 (Zofran Inj) 4 mg Q6H PRN IVP 05/20/17 01:45 (Narcan Inj) 0.4 mg UNSCH PRN IV PUSH 05/20/17 01:45 (Basilia-Colace) 1 tab BID PO 05/20/17 09:00 05/28/17 08:50 (Milk Of Magnesia Liq) 30 ml Q12H PRN PO 05/20/17 01:45 (Senokot) 17.2 mg Q12H PRN PO 05/20/17 01:45 (Dulcolax Supp) 10 mg DAILY PRN RECTAL 05/20/17 01:45 (Lactulose Liq) 30 ml DAILY PRN PO 05/20/17 01:45 (Symbicort 160-4.5 Mcg Inh) 1 puff Q12HR INH 05/20/17 09:00 05/28/17 08:49 (Lasix) 40 mg BID PO 05/20/17 09:00 05/28/17 08:50 (Neurontin) 100 mg TID PO 05/20/17 09:00 05/28/17 12:43 (Percocet 5-325 Mg) 1 tab Q6H PRN PO 05/20/17 01:45 05/21/17 08:17 (KCl) 10 meq DAILY PO 05/20/17 09:00 05/28/17 08:50 (Zoloft) 100 mg DAILY PO 05/20/17 09:00 05/28/17 08:50 (Pravachol) 80 mg HS PO 05/20/17 21:00 05/27/17 21:53 (D50w (Vial) Inj) 50 ml UNSCH PRN IV PUSH 05/20/17 01:45 (Glucagon Inj) 1 mg UNSCH PRN OTHER 05/20/17 01:45 (Cardizem) 60 mg Q6HR PO 05/20/17 15:00 05/28/17 12:45 Miscellaneous Information Patient in critical care unit? Ass... Q361D .XX 05/20/17 20:30 05/20/17 20:30 (NovoLOG SUPPLEMENTAL SCALE) 1 ACHS SLIDING SCALE SQ 05/23/17 17:00 05/28/17 12:43 (Levemir Inj) 8 units DAILY SQ 05/24/17 09:00 05/28/17 08:49 (Duoneb Neb) 1 ampule Q2HR NEB PRN NEB 05/24/17 11:00 (Coumadin) 7.5 mg DAILY@1600 PO 05/25/17 17:17 05/28/17 16:33 (Levaquin) 750 mg DAILY PO 05/26/17 16:00 05/30/17 10:00 05/28/17 08:50 (Lopressor) 50 mg BID PO 05/26/17 21:00 05/28/17 08:50 (Deltasone) 30 mg DAILY PO 05/28/17 09:00 05/28/17 08:50 (Levemir Inj) 10 units HS SQ 05/27/17 21:00 05/27/17 21:00 Vital Signs / I&O Vital Signs Date Time Temp Pulse Resp B/P (MAP) Pulse Ox O2 Delivery O2 Flow Rate FiO2 05/28/17 12:04 92 05/28/17 12:00 97.8 93 20 135/82 (99) 94 05/28/17 08:06 97 Nasal Cannula 2.00 05/28/17 08:00 98.0 97 20 119/72 (88) 94 05/28/17 08:00 91 05/28/17 06:00 92 05/28/17 05:00 92 05/28/17 04:00 85 05/28/17 03:00 81 05/28/17 03:00 97.0 81 16 141/83 (102) 95 05/28/17 02:00 86 05/28/17 01:00 88 05/28/17 00:00 95 Nasal Cannula 2.00 05/28/17 00:00 88 05/28/17 00:00 97.3 89 16 129/65 (86) 95 05/27/17 23:00 94 05/27/17 22:00 118 05/27/17 21:00 110 05/27/17 20:00 92 05/27/17 20:00 97.6 92 18 131/71 (91) 93 05/27/17 20:00 93 Nasal Cannula 2.00 05/27/17 19:42 94 Nasal Cannula 2.00 05/27/17 19:00 86 05/27/17 17:46 97.8 89 20 132/69 (90) 94 05/27/17 17:08 Nasal Cannula 2.00 I/O 05/27/17 05/27/17 05/27/17 05/28/17 05/28/17 05/28/17 07:00 15:00 23:00 07:00 15:00 23:00 Intake Total 240 ml 360 ml Output Total 300 ml 600 ml 1900 ml Balance -60 ml -600 ml -1540 ml Intake Oral 240 ml 360 ml Output Urine Total 300 ml 600 ml 1900 ml # Voids 2 # Bowel Movements 0 1 0 Physical Exam GENERAL: NAD SKIN: Warm and dry. HEAD: Atraumatic. Normocephalic. EYES: Pupils equal and round. No scleral icterus. No injection or drainage. ENT: No nasal bleeding or discharge. Mucous membranes pink and moist. NECK: Trachea midline. No JVD. CARDIOVASCULAR: Irregularly irregular RESPIRATORY: No accessory muscle use. Decreased breath sounds bilaterally GASTROINTESTINAL: Abdomen soft, non-tender, nondistended. Hepatic and splenic margins not palpable. MUSCULOSKELETAL: 2+ edema, chronic in nature NEUROLOGICAL: Awake and alert. No obvious cranial nerve deficits. Motor grossly within normal limits. Five out of 5 muscle strength in the arms and legs. Normal speech. PSYCHIATRIC: Appropriate mood and affect; insight and judgment normal. Assessment and Plan Problem List: (1) COPD exacerbation ICD Codes: J44.1 - Chronic obstructive pulmonary disease with (acute) exacerbation (2) Chronic systolic CHF (congestive heart failure) ICD Codes: I50.22 - Chronic systolic (congestive) heart failure (3) Atrial fibrillation with RVR ICD Codes: I48.91 - Unspecified atrial fibrillation Status: Acute (4) Hypertension ICD Codes: I10 - Essential (primary) hypertension (5) Hyperlipidemia ICD Codes: E78.5 - Hyperlipidemia, unspecified (6) Diabetes mellitus ICD Codes: E11.9 - Type 2 diabetes mellitus without complications (7) Shortness of breath ICD Codes: R06.02 - Shortness of breath Status: Acute Assessment and Plan 1) Afib now with CVR Con't Cardizem/Metoprolol, increased Lopressor to 50mg BID RVR may be due to increased sympathetics 2) PNA/COPD per primary/pulm 3) EF 30-35% Con't BB, will add CYNTHIA-I once more stable as blood pressure borderline low 4) Drop in Hgb Plan for Hemoccult stool 5) INR elevated ? secondary to Coumadin with anti-biotics Since has normalized Bong Tinsley DO May 28, 2017 16:58
[2017-05-28 18:05] LABS: INTERNATIONAL NORMALIZED RATIO 1.9 RATIO; PROTHROMBIN TIME - PATIENT 19.4 SEC (9.8-11.6)
[2017-05-28] MEDS ORDERED: WARF-21 PO (18:36)
[2017-05-28] MEDS: PRAVASTATIN SOD 40 MG TAB PO SCH (21:28)
[2017-05-29] VITALS (22 sets, daily range): BP systolic 124–136; BP diastolic 70–77; PULSE 78–104; RESP 18–20; TEMP 97–97.8; O2SAT 95–96
[2017-05-29] MEDS: DILTIAZEM HCL 60 MG TAB PO SCH ×3 (05:17→16:37)
[2017-05-29] MEDS: INSULIN ASPART SUPPLEMENTAL SCALE SQ SCH ×3 (08:00→16:37)
[2017-05-29] MEDS: INSULIN DETEMIR 100 UNITS/ML VIAL SQ SCH (09:00)
[2017-05-29] MEDS: GABAPENTIN 100 MG CAP PO SCH ×3 (09:00→16:37)
[2017-05-29] MEDS: BUDESONIDE-FORMOTEROL 160/4.5 MCG INHALER INH SCH (09:00)
[2017-05-29] MEDS: SERTRALINE HCL 100 MG TAB PO SCH (09:00)
[2017-05-29] MEDS: DOCUSATE SODIUM 50 MG/SENNA 8.6 MG TAB PO SCH (09:00)
[2017-05-29] MEDS: predniSONE 10 MG TAB PO SCH (09:35)
[2017-05-29] MEDS: POTASSIUM CHLORIDE 10 MEQ CAP PO SCH (09:36)
[2017-05-29] MEDS: LEVOFLOXACIN 750 MG TAB PO SCH (09:36)
[2017-05-29] MEDS: METOPROLOL TARTRATE 50 MG TAB PO SCH (09:36)
[2017-05-29] MEDS: SODIUM CHLORIDE 0.9% FLUSH 10 ML FLUSH IV FLUSH SCH (09:36)
[2017-05-29] MEDS: FUROSEMIDE 40 MG TAB PO SCH (09:36)
--- NOTE | 2017-05-29 15:03 | HHI.PR ---
Subjective Remarks ALERT NO ACUTE DISTRESS ON O2 Objective Vital Signs Date Time Temp Pulse Resp B/P (MAP) Pulse Ox O2 Delivery O2 Flow Rate FiO2 05/29/17 14:03 84 05/29/17 13:40 88 05/29/17 12:05 88 05/29/17 11:56 97.4 104 18 130/70 (90) 96 05/29/17 11:53 104 05/29/17 10:33 104 05/29/17 09:47 97.8 80 20 128/77 (94) 96 05/29/17 09:26 78 05/29/17 09:12 95 Nasal Cannula 2.00 05/29/17 07:53 88 05/29/17 07:53 Nasal Cannula 2.00 05/29/17 06:17 90 05/29/17 05:04 93 05/29/17 04:28 97.7 91 124/74 (91) 95 05/29/17 04:00 86 05/29/17 03:40 90 05/29/17 02:00 88 05/29/17 01:00 86 05/29/17 00:00 86 05/28/17 23:51 98.0 90 142/70 (94) 96 05/28/17 23:00 86 05/28/17 22:00 90 05/28/17 21:00 90 05/28/17 20:00 92 05/28/17 20:00 98.5 98 130/89 (103) 96 05/28/17 20:00 Nasal Cannula 2.00 05/28/17 19:00 91 05/28/17 17:47 94 Nasal Cannula 2.00 05/28/17 16:06 83 05/28/17 16:00 98.5 85 20 126/83 (97) 92 I/O 05/28/17 05/28/17 05/28/17 05/29/17 05/29/17 05/29/17 07:00 15:00 23:00 07:00 15:00 23:00 Intake Total 360 ml 240 ml Output Total 1900 ml 500 ml Balance -1540 ml -260 ml Intake Oral 360 ml 240 ml Output Urine Total 1900 ml 500 ml # Voids 1 # Bowel Movements 0 1 Result Diagram: 05/26/17 1016 05/26/17 0440 Procedures None Objective Remarks GENERAL: SKIN: Warm and dry. HEAD: Atraumatic. Normocephalic. EYES: Pupils equal and round. No scleral icterus. No injection or drainage. ENT: No nasal bleeding or discharge. Mucous membranes pink and moist. NECK: Trachea midline. No JVD. CARDIOVASCULAR: Regular rate and rhythm. RESPIRATORY: No accessory muscle use. Clear to auscultation. Breath sounds equal bilaterally. GASTROINTESTINAL: Abdomen soft, non-tender, nondistended. Hepatic and splenic margins not palpable. MUSCULOSKELETAL: Extremities without clubbing, cyanosis, or edema. No obvious deformities. NEUROLOGICAL: Awake and alert. No obvious cranial nerve deficits. Motor grossly within normal limits. Five out of 5 muscle strength in the arms and legs. Normal speech. PSYCHIATRIC: Appropriate mood and affect; insight and judgment normal. Assessment and Plan Assessment and Plan ASSESSMENT COPD EXACERBATION RESPIRATORY FAILURE AFIB HTN HND CHF COMPENSATED PLAN O2 / has home o2 BRONCHODILATORS INCREASE ACTIVITY may d/c pulmonary wiseoffice 2 weeks office 1 week Valentina Montgomery MD May 29, 2017 15:03
[2017-05-29] MEDS: WARFARIN SOD 7.5 MG TAB PO SCH (16:37)
--- NOTE | 2017-05-29 17:22 | HHI.PR ---
Subjective Remarks Follow-up sepsis, bacteremia, pneumonia. Cardiology following for Atrial Fibrillation with Controlled Ventricular rate, continue management for Pneumonia, as oer ID to continue antibiotics for Haemophilus influenzae and Staphylococcus Coagulase negative source most likely pneumonia, to continue Ceftriaxone, Azithromycin, repeat blood cultures if continue doing well planned to switch to by mouth Levaquin by ID. 05/27: seen in her bedroom, no complaint, will go to SNF tomorrow if cleared by edi specialist. 05/28: Patient seen in her bedroom, discussed through the phone by Nurse with Doctor Valentina edi specialist and with Doctor Laureano wade to discharge patient, she refused going to SNF and was switched to home with [facility] explained the possible consequences of her decision, but she decided to go home and emphatically refused going to SNF. no nausea, vomit or diarrhea, will go home on HH and continue taking her Warfarin 10 mg daily and daily PT and INR by Skilled nurse, follow with Cardiology and edi specialist as outpatient. 05/29: PATIENT SEEN IN HER BEDROOM SHE WAS DISCHARGED YESTERDAY NO CHANGES FROM YESTERDAY, AWAITING TO BE PICKED UP BY HER RELATIVES. Objective Vital Signs Date Time Temp Pulse Resp B/P (MAP) Pulse Ox O2 Delivery O2 Flow Rate FiO2 05/29/17 16:14 94 05/29/17 15:22 97.0 88 18 136/72 (93) 96 05/29/17 15:17 88 05/29/17 14:03 84 05/29/17 13:40 88 05/29/17 12:05 88 05/29/17 11:56 97.4 104 18 130/70 (90) 96 05/29/17 11:53 104 05/29/17 10:33 104 05/29/17 09:47 97.8 80 20 128/77 (94) 96 05/29/17 09:26 78 05/29/17 09:12 95 Nasal Cannula 2.00 05/29/17 07:53 88 05/29/17 07:53 Nasal Cannula 2.00 05/29/17 06:17 90 05/29/17 05:04 93 05/29/17 04:28 97.7 91 124/74 (91) 95 05/29/17 04:00 86 05/29/17 03:40 90 05/29/17 02:00 88 05/29/17 01:00 86 05/29/17 00:00 86 05/28/17 23:51 98.0 90 142/70 (94) 96 05/28/17 23:00 86 05/28/17 22:00 90 05/28/17 21:00 90 05/28/17 20:00 92 05/28/17 20:00 98.5 98 130/89 (103) 96 05/28/17 20:00 Nasal Cannula 2.00 05/28/17 19:00 91 05/28/17 17:47 94 Nasal Cannula 2.00 I/O 05/28/17 05/28/17 05/28/17 05/29/17 05/29/17 05/29/17 07:00 15:00 23:00 07:00 15:00 23:00 Intake Total 360 ml 240 ml Output Total 1900 ml 500 ml Balance -1540 ml -260 ml Intake Oral 360 ml 240 ml Output Urine Total 1900 ml 500 ml # Voids 1 # Bowel Movements 0 1 Result Diagram: 05/26/17 1016 05/26/17 0440 Imaging Last Impressions Chest X-Ray 05/25/17 0948 Signed Impressions: Service Date/Time: Thursday, May 25, 2017 10:01 - CONCLUSION: Improving chest with resolving left-sided airspace disease. John James MD Procedures None Other Results Laboratory Tests Test 05/19/17 19:50 05/19/17 19:55 05/20/17 09:07 05/23/17 04:00 Dohle Bodies PRESENT Activated Partial Thromboplast Time 45.5 SEC Blood Urea Nitrogen 39 MG/DL 40 MG/DL Creatinine 1.09 MG/DL 0.75 MG/DL Random Glucose 173 MG/DL 270 MG/DL Total Protein 7.8 GM/DL Albumin 3.1 GM/DL Calcium Level 9.6 MG/DL 8.9 MG/DL Magnesium Level 1.8 MG/DL 2.0 MG/DL Alkaline Phosphatase 99 U/L Aspartate Amino Transf (AST/SGOT) 7 U/L Alanine Aminotransferase (ALT/SGPT) 12 U/L Total Bilirubin 1.0 MG/DL Sodium Level 135 MEQ/L 141 MEQ/L Potassium Level 3.8 MEQ/L 4.6 MEQ/L Chloride Level 98 MEQ/L 103 MEQ/L Carbon Dioxide Level 26.1 MEQ/L 31.8 MEQ/L Total Creatine Kinase 45 U/L Troponin I LESS THAN 0.02 NG/ML B-Type Natriuretic Peptide 35 PG/ML Lipase 46 U/L Thyroid Stimulating Hormone 3rd Gen 1.350 uIU/ML B-Hydroxybutyrate 1.17 MMOL/L Lactic Acid Level 1.8 mmol/L Blood Gas Puncture Site RT RADIAL Blood Gas Patient Temperature 98.6 Blood Gas HCO3 26 mmol/L Blood Gas Base Excess 0.7 mmol/L Blood Gas Oxygen Saturation 94 % Arterial Blood pH 7.34 Arterial Blood Partial Pressure CO2 50 mmHg Arterial Blood Partial Pressure O2 81 mmHG Arterial Blood Oxygen Content 15.8 Vol % Arterial Blood Carboxyhemoglobin 1.0 % Arterial Blood Methemoglobin 0.7 % Blood Gas Hemoglobin 11.9 G/DL Oxygen Delivery Device PNRB Blood Gas Liter Flow 15 L/M Metamyelocytes 3 % Spherocytes 1+ Phosphorus Level 3.4 MG/DL Test 05/24/17 04:25 05/26/17 04:40 05/26/17 10:16 05/28/17 17:25 Basophilic Stippling FAINT Ovalocytes 1+ Blood Urea Nitrogen 37 MG/DL Creatinine 0.77 MG/DL Random Glucose 342 MG/DL Calcium Level 8.6 MG/DL Sodium Level 136 MEQ/L Potassium Level 4.3 MEQ/L Chloride Level 94 MEQ/L Carbon Dioxide Level 36.7 MEQ/L Anion Gap 5 MEQ/L Estimat Glomerular Filtration Rate 74 ML/MIN White Blood Count 21.8 TH/MM3 Red Blood Count 4.97 MIL/MM3 Hemoglobin 12.2 GM/DL Hematocrit 38.2 % Mean Corpuscular Volume 76.8 FL Mean Corpuscular Hemoglobin 24.6 PG Mean Corpuscular Hemoglobin Concent 32.1 % Red Cell Distribution Width 18.6 % Platelet Count 182 TH/MM3 Mean Platelet Volume 8.3 FL Neutrophils (%) (Auto) 95.5 % Lymphocytes (%) (Auto) 3.2 % Monocytes (%) (Auto) 1.2 % Eosinophils (%) (Auto) 0.0 % Basophils (%) (Auto) 0.1 % Neutrophils # (Auto) 20.8 TH/MM3 Lymphocytes # (Auto) 0.7 TH/MM3 Monocytes # (Auto) 0.3 TH/MM3 Eosinophils # (Auto) 0.0 TH/MM3 Basophils # (Auto) 0.0 TH/MM3 CBC Comment AUTO DIFF Differential Total Cells Counted 100 Neutrophils % (Manual) 82 % Band Neutrophils % 8 % Lymphocytes % 5 % Monocytes % 2 % Basophils % 1 % Neutrophils # (Manual) 20.1 TH/MM3 Myelocytes 2 % Differential Comment FINAL DIFF MANUAL Platelet Estimate NORMAL Platelet Morphology Comment CLUMPED Prothrombin Time 19.4 SEC Prothromb Time International Ratio 1.9 RATIO Objective Remarks General: Obese female in no acute distress. Heart: Irregular, tachycardic. No murmur. Lungs: Decreased breath sounds throughout. No wheezes noted. Breathing is nonlabored. Abdomen: Soft, nontender, nondistended. Extremities: Chronic bilateral lower extremity edema with venous stasis changes. Psych: Alert, oriented. Medications and IVs Current Medications Medications (Trade) Dose Ordered Sig/Carmen Route Start Time Stop Time Status Last Admin (Duoneb Neb) 1 ampule Q4HR NEB PRN NEB 05/20/17 01:45 05/21/17 16:44 (NS Flush) 2 ml UNSCH PRN IV FLUSH 05/20/17 01:45 (NS Flush) 2 ml BID IV FLUSH 05/20/17 09:00 05/29/17 09:36 (Zofran Inj) 4 mg Q6H PRN IVP 05/20/17 01:45 (Narcan Inj) 0.4 mg UNSCH PRN IV PUSH 05/20/17 01:45 (Basilia-Colace) 1 tab BID PO 05/20/17 09:00 05/28/17 08:50 (Milk Of Magnesia Liq) 30 ml Q12H PRN PO 05/20/17 01:45 (Senokot) 17.2 mg Q12H PRN PO 05/20/17 01:45 (Dulcolax Supp) 10 mg DAILY PRN RECTAL 05/20/17 01:45 (Lactulose Liq) 30 ml DAILY PRN PO 05/20/17 01:45 (Symbicort 160-4.5 Mcg Inh) 1 puff Q12HR INH 05/20/17 09:00 05/29/17 09:00 (Lasix) 40 mg BID PO 05/20/17 09:00 05/29/17 09:36 (Neurontin) 100 mg TID PO 05/20/17 09:00 05/29/17 16:37 (Percocet 5-325 Mg) 1 tab Q6H PRN PO 05/20/17 01:45 05/21/17 08:17 (KCl) 10 meq DAILY PO 05/20/17 09:00 05/29/17 09:36 (Zoloft) 100 mg DAILY PO 05/20/17 09:00 05/29/17 09:00 (Pravachol) 80 mg HS PO 05/20/17 21:00 05/28/17 21:28 (D50w (Vial) Inj) 50 ml UNSCH PRN IV PUSH 05/20/17 01:45 (Glucagon Inj) 1 mg UNSCH PRN OTHER 05/20/17 01:45 (Cardizem) 60 mg Q6HR PO 05/20/17 15:00 05/29/17 16:37 Miscellaneous Information Patient in critical care unit? Ass... Q361D .XX 05/20/17 20:30 05/20/17 20:30 (NovoLOG SUPPLEMENTAL SCALE) 1 ACHS SLIDING SCALE SQ 05/23/17 17:00 05/29/17 16:37 (Levemir Inj) 8 units DAILY SQ 05/24/17 09:00 05/29/17 09:00 (Duoneb Neb) 1 ampule Q2HR NEB PRN NEB 05/24/17 11:00 (Coumadin) 7.5 mg DAILY@1600 PO 05/25/17 17:17 05/29/17 16:37 (Levaquin) 750 mg DAILY PO 05/26/17 16:00 05/30/17 10:00 05/29/17 09:36 (Lopressor) 50 mg BID PO 05/26/17 21:00 05/29/17 09:36 (Deltasone) 30 mg DAILY PO 05/28/17 09:00 05/29/17 09:35 (Levemir Inj) 10 units HS SQ 05/27/17 21:00 05/28/17 21:28 A/P Assessment and Plan (1) COPD exacerbation ICD Code: J44.1 - Chronic obstructive pulmonary disease with (acute) exacerbation (2) Diabetes mellitus ICD Code: E11.9 - Type 2 diabetes mellitus without complications (3) Chronic systolic CHF (congestive heart failure) ICD Code: I50.22 - Chronic systolic (congestive) heart failure (4) Hypertension ICD Code: I10 - Essential (primary) hypertension (5) Hyperlipidemia ICD Code: E78.5 - Hyperlipidemia, unspecified (6) Atrial fibrillation with RVR ICD Code: I48.91 - Unspecified atrial fibrillation Status: Acute (7) Pneumonia ICD Code: J18.9 - Pneumonia, unspecified organism Status: Acute (8) Shortness of breath ICD Code: R06.02 - Shortness of breath Status: Acute (9) Sepsis ICD Code: A41.9 - Sepsis, unspecified organism (10) Acute kidney injury ICD Code: N17.9 - Acute kidney failure, unspecified 1. Atrial fibrillation with RVR: Transitioned from Cardizem drip to oral Cardizem. Rate improved at rest, but she becomes tachycardic to the 120s with any activity. Coumadin for anticoagulation. also continue Metoprolol. her INR today 1.3 will continue Warfarin at 10 mg daily, and will be followed by skilled nurse daily PT and INR INR goal 2 to 3 and hold Warfarin if INR in 3 or over. Increased Metoprolol to 50 mg BID by language specialist. 2. Sepsis, pneumonia, bacteremia: Patient met criteria for sepsis upon admission with tachycardia, leukocytosis. Continue antibiotics. Continue supplemental oxygen. Blood cultures growing Haemophilus influenza and coag negative Staphylococcus. ID following. recommended Levaquin 750 mg daily for five more days. will give for three days to complete the five days recommended by ID specialist. 3. COPD exacerbation with acute respiratory failure: Continue supplemental oxygen, bronchodilators, switch to by mouth Prednisone and titrated dosages. 4. Chronic systolic congestive heart failure: Continue Lasix. Echocardiogram shows EF 30-35%. Cardiology following. recommended to add CYNTHIA inhibitor once his blood pressure normalizes, at this time continue with low blood pressure will need to follow with language specialist at discharge. 5. Diabetes mellitus: Monitor Accu-Cheks and cover with sliding scale insulin. her uncontrol may be related to Steroid use discontinued IV Steroids and transferred to by mouth Prednisone titrated dosages, will go home with usual dosages of Insulin and sliding scale. 6. Hyperlipidemia: Continue statin. 7. Acute kidney injury: Improved. Urine output has improved. 8. Anemia Hemoglobin improving 9. Morbid Obesity strongly recommended diet and exercise. 10. Coagulopathy secondary to Warfarin improved. DVT prophylaxis: on Coumadin. INR 1.3 CODE STATUS: Full code. Discharge Planning PATIENT AWAITING FOR TRANSPORTATION. Ky Cook MD May 29, 2017 17:22
== END 2017-05-29 18:38 | disposition home health service (06) | DRG 871 ==
LOC: NEPE 19:07 → NEDA 23:31 → NEDH 05-20 04:10 → HIMN 05-20 18:38 → HCIS 05-25 21:00
PROVIDERS: ADMIT Internal Medicine; ATTEND Internal Medicine
DX: A41.9 Sepsis, unspecified organism (principal); J96.20 Acute and chronic respiratory failure, unspecified whether with hypoxia or hypercapnia; N17.9 Acute kidney failure, unspecified; J15.29 Pneumonia due to other staphylococcus; J14 Pneumonia due to Hemophilus influenzae; I11.0 Hypertensive heart disease with heart failure; I50.22 Chronic systolic (congestive) heart failure; Z68.42 Body mass index [BMI] 45.0-49.9, adult; I27.20 Pulmonary hypertension, unspecified; J44.0 Chronic obstructive pulmonary disease with (acute) lower respiratory infection; J44.1 Chronic obstructive pulmonary disease with (acute) exacerbation; I08.1 Rheumatic disorders of both mitral and tricuspid valves; I48.91 Unspecified atrial fibrillation; Z79.01 Long term (current) use of anticoagulants; E11.65 Type 2 diabetes mellitus with hyperglycemia; Z79.4 Long term (current) use of insulin; E66.01 Morbid (severe) obesity due to excess calories; D64.9 Anemia, unspecified; E78.5 Hyperlipidemia, unspecified; K21.9 Gastro-esophageal reflux disease without esophagitis; R79.1 Abnormal coagulation profile; T45.515A Adverse effect of anticoagulants, initial encounter; I89.0 Lymphedema, not elsewhere classified; Z99.81 Dependence on supplemental oxygen; H91.90 Unspecified hearing loss, unspecified ear; Z87.891 Personal history of nicotine dependence
CPT/HCPCS: 36600; 71045; 76937; 80048; 80053; 82010; 82550; 82805; 82948; 83605; 83690; 83735; 83880; 84100; 84443; 84484; 85007; 85014; 85018; 85025; 85027; 85610; 85730; 86403; 87040; 87205; 87804; 93005; 93306; 94640; 94664; 96365; 96367; 96375; J0456; J0696; J1644; J1815; J2270; J2405; J2920; J2930; J3430; J7040; J7050; J7512

== ENCOUNTER 2017-06-21 13:22 | Emergency (ER) | payer MEDICARE, OTHER ==
[~2017-06-21] VITALS: Ht 172.7 cm; Wt 140.0 kg
[~2017-06-21 13:22] MED LIST: DILT60TA33 PO; DOCU100T9 PO; FERR325T18 PO; FURO40TA PO; GABA100C4 PO; HUMALOG SQ; LANTINJ SQ; LEVA750T9 PO; METO-309 PO; OXYC1TAB63 PO; POTA10CA PO; PRED10 PO; RANI150T PO; SERT-129 PO; SIMV40TA PO; SYMB160A INH; VENTAER INH; WARF-21 PO
[2017-06-21 13:54] VITALS: BP 113/56; PULSE 63; RESP 19; TEMP 98.1; O2SAT 92
[2017-06-21] MEDS ORDERED: oxyCODONE/ACETAMINOPHEN 5 MG/325 MG TAB PO ONE (14:15)
--- NOTE | 2017-06-21 15:04 | PD ---
HPI Chief Complaint: Fall Time Seen by Provider: 13:58 Travel History International Travel<30 days: No Contact w/Intl Traveler<30days: No Traveled to known affect area: No History of Present Illness HPI 67-year-old female presents to the emergency department via EMS on a backboard with complaint of low back pain across her back after falling on her but from a standing position. 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 Denies hitting her head or loss of consciousness. Is incontinent of urine and wears a brief. Has history of COPD and is on home oxygen. Denies neck pain or upper back pain. Otherwise denies incontinence of stool or saddle anesthesias. Denies paresthesias, loss of sensation to bilateral lower extremities. Patient is morbidly obese and is unable to lift her legs off the bed, and this is unchanged for her. Denies chest pain, shortness of breath, abdominal pain, vomiting. Denies headache, lightheadedness, dizziness. Has not taken any medications or try any treatments to alleviate her symptoms. Rates pain 8/10. History of COPD, hypertension, atrial fibrillation, CHF, urinary incontinence. Takes Coumadin 7.5 mg. Home docs come to her house for primary care. No known allergies. Has no other medical complaints. No other modifying factors or associated signs and symptoms. PFSH Past Medical History Atrial Fibrillation: Yes High Cholesterol: Yes Congestive Heart Failure: Yes COPD: Yes Coronary Artery Disease: No Diabetes: Yes (type 2) Patient Takes Glucophage: No Diminished Hearing: Yes Genitourinary: No Hypertension: Yes Past Surgical History Hysterectomy: Yes Tonsillectomy: Yes Social History Alcohol Use: No Tobacco Use: No Substance Use: No Allergies-Medications (Allergen,Severity, Reaction): Coded Allergies: No Known Allergies (Unverified , 05/19/17) Reported Meds & Prescriptions Reported Meds & Active Scripts Active Warfarin 7.5 Mg Tab 7.5 Mg PO DAILY take one tablet of Warfarin 7.5 mg and continue PT and INR check on daily bases, INR goal 2 to 3, and hold warfarin if INR in 3 or over. follow by Cardiology and [facility] Lopressor (Metoprolol Tartrate) 50 Mg Tab 50 Mg PO BID Prednisone 10 Mg Tab 10 Mg PO DAILY TAKE THREE TABLETS BY MOUTH DAILY FOR TWO DAYS 05/29 AND 05/30 THEN TAKE TWO TABLETS BY MOUTH DAILY FOR THREE DAYS 05/31 - 06/02 THEN TAKE ONE TABLET BY MOUTH DAILY FOR THREE DAYS 06/03 - 06/05 Cardizem (Diltiazem HCl) 60 Mg Tab 60 Mg PO Q6HR Levaquin (Levofloxacin) 750 Mg Tablet 750 Mg PO DAILY Take one tablet daily starting tomorrow 05/29/17 through 05/31/17 Oxycodone-Acetaminophen 5-325 mg Tab 1 Tab PO Q6H PRN DO NOT TAKE THIS MEDICINE IF YOU WILL DRIVE A CAR OR USE A MACHINE, ONLY USE IT WHEN RESTING AT HOME Reported Furosemide 40 Mg Tab 40 Mg PO BID Humalog Inj (Insulin Human Lispro) 1,000 Unit/10 Ml Vial 5 Units SQ TIDAC Sertraline (Sertraline HCl) 100 Mg Tab 100 Mg PO DAILY Symbicort Inh (Budesonide/Formoterol Fumarate) 160-4.5 Mcg/Act Aero 1 Puff INH Q12HR Gabapentin 100 Mg Cap 100 Mg PO TID Lantus Solostar Pen Inj (Insulin Glargine) 300 Unit/3 Ml Pen 8 Units SQ Simvastatin 40 Mg Tab 40 Mg PO HS Ranitidine (Ranitidine HCl) 150 Mg Tab 150 Mg PO BID Potassium Chloride ER (Potassium Chloride) 10 Meq Cap 10 Meq PO DAILY Ventolin Hfa 18 GM Inh (Albuterol Sulfate) 90 Mcg/Act Aer 2 Puff INH Q6H PRN Ferrous Sulfate 325 Mg (65 Mg Iron) Tablet 325 Mg PO DAILY Docusate Sodium 100 Mg Tab 100 Mg PO DAILY Review of Systems Except as stated in HPI: all other systems reviewed are Neg Physical Exam Narrative GENERAL: Well-nourished, well-developed female patient, in no acute distress; afebrile, nontoxic-appearing SKIN: Warm and dry. HEAD: Atraumatic. Normocephalic. EYES: Pupils equal and round. No scleral icterus. No injection or drainage. ENT: Mucosa pink and moist. Airway patent. NECK: Moving freely. No midline tenderness on palpation of the cervical spine. Trachea midline. CARDIOVASCULAR: Regular rate. RESPIRATORY: No accessory muscle use. GASTROINTESTINAL: Morbidly obese. MUSCULOSKELETAL: Bilateral lower extremities supple and non-tense with 2+ pedal pulses and sensory intact. 2+ DTRs bilaterally. Active dorsiflexion and extension of bilateral feet; 5/5 strength bilaterally with dorsiflexion and extension of bilateral feet with resistance. Unable to perform straight leg raises secondary to body habitus. Sitting up in bed at 90. No obvious deformities. No clubbing. No cyanosis. No edema. BACK: Midline point tenderness on palpation of the lumbar spine. No midline tenderness on palpation of the thoracic spine. No obvious deformities. NEUROLOGICAL: Awake and alert. Oriented 3. No obvious cranial nerve deficits. Motor grossly within normal limits. Normal speech. Moves all extremities. 5/5 strength to all extremities. Sensory intact. PSYCHIATRIC: Appropriate mood and affect; insight and judgment normal. Data Data Last Documented VS Vital Signs Date Time Temp Pulse Resp B/P (MAP) Pulse Ox O2 Delivery O2 Flow Rate FiO2 06/21/17 13:57 92 Nasal Cannula 2.00 06/21/17 13:54 98.1 63 19 113/56 (75) Orders Orders Oxycodone-Acetamin 5-325 Mg (Percocet (06/21/17 14:15) Pelvis, Ap Only (Routine) (06/21/17 ) Spine, Lumbar - Ltd (Ap & Lat) (06/21/17 14:11) MDM Medical Decision Making Medical Screen Exam Complete: Yes Emergency Medical Condition: Yes Medical Record Reviewed: Yes Differential Diagnosis Fall, contusion, coccyx fracture, lumbar fracture, lumbar strain, hip fracture, pelvic fracture Narrative Course 67-year-old female with complaint of low back pain after mechanical fall and falling onto her buttocks. She denies hitting her head or loss of consciousness. Denies neck pain or upper back pain. I discussed the patient with Dr. Correa and a plan of care was discussed. Percocet, lumbar x-ray, pelvis x-ray ordered. 1728: Cervical spine x-ray and pelvis x-ray conclude: Lumbar Spine X-Ray 06/21/17 1411 Signed Impressions: Service Date/Time: Wednesday, June 21, 2017 14:46 - CONCLUSION: 1. No evidence of acute fracture. 2. Degenerative disc disease with mild spondylosis. 3. Moderate lower lumbar facet arthropathy. John James MD Pelvis X-Ray 06/21/17 0000 Signed Impressions: Service Date/Time: Wednesday, June 21, 2017 14:44 - CONCLUSION: No acute disease. John James MD X-ray findings discussed with the patient. Instructed patient to take Tylenol as directed and as needed for pain. Patient has a walker at home for support. Instructed patient to follow up with primary care provider. Patient verbalizes understanding and agreement with treatment plan. Patient is medically cleared and stable for discharge. Discussed reasons to return to the emergency department. Patient agrees with treatment plan. The patients vital signs are stable and the patient is stable for outpatient follow-up and treatment. Patient discharged home, stable and in no acute distress. Diagnosis Primary Impression: Fall Qualified Codes: W19.XXXA - Unspecified fall, initial encounter Additional Impression: Contusion of lower back Qualified Codes: S30.0XXA - Contusion of lower back and pelvis, initial encounter Referrals: Primary Care Physician Patient Instructions: Acute Low Back Pain (ED), General Instructions, Low Back Strain (ED) Additional Instructions: Tylenol as directed and as needed for pain Heating pad and/or ice to affected area to reduce pain Avoid aggravating activities; increase activity as tolerated Follow-up with primary care provider Return to emergency department immediately with worsening of symptoms Med/Other Pt SpecificInfo: No Change to Meds, No Meds Exist/No RX given Disposition: 01 DISCHARGE HOME Condition: Stable Rosalba Aldana Jun 21, 2017 15:04
--- NOTE | 2017-06-21 16:16 | RADRPT ---
EXAM DATE/TIME: 06/21/2017 14:44 [facility] COMPARISON: No previous studies available for comparison. INDICATIONS : Trauma. Fall. MEDICAL HISTORY : Chronic obstructive pulmonary disease. Diabetes mellitus type II. Afib SURGICAL HISTORY : None. ENCOUNTER: Initial ACUITY: 1 day PAIN SCORE: 8/10 LOCATION: Pelvis. FINDINGS: A single frontal view of the pelvis demonstrates no evidence of fracture. The bony pelvic ring is in tact. Bony mineralization is normal. The soft tissues are intact. CONCLUSION: No acute disease. John James MD on June 21, 2017 at 16:13 Board Certified Radiologist. This report was verified electronically.
--- NOTE | 2017-06-21 16:17 | RADRPT ---
EXAM DATE/TIME: 06/21/2017 14:46 [facility] COMPARISON: No previous studies available for comparison. INDICATIONS : Trauma. Fall. MEDICAL HISTORY : Chronic obstructive pulmonary disease. Diabetes mellitus type II. Afib SURGICAL HISTORY : None. ENCOUNTER: Initial ACUITY: 1 day PAIN SCORE: 8/10 LOCATION: Lumbar Spine. FINDINGS: Two view examination was performed. There are five non-rib bearing vertebral bodies. The vertebral bodies are in normal alignment without evidence of subluxation or scoliosis. Mild degenerative disc d isease or spondylosis is noted. Moderate facet arthropathy is noted at L4-5 and L5-S1. The pedicles a re intact. Bony mineralization is normal. No fracture is identified. CONCLUSION: 1. No evidence of acute fracture. 2. Degenerative disc disease with mild spondylosis. 3. Moderate lower lumbar facet arthropathy. John James MD on June 21, 2017 at 16:13 Board Certified Radiologist. This report was verified electronically.
== END 2017-06-21 19:59 | disposition home or self-care (01) ==
LOC: NEPD 13:22
DX: S30.0XXA Contusion of lower back and pelvis, initial encounter (principal); M51.36 Other intervertebral disc degeneration, lumbar region; M47.9 Spondylosis, unspecified; E66.01 Morbid (severe) obesity due to excess calories; J44.9 Chronic obstructive pulmonary disease, unspecified; I11.0 Hypertensive heart disease with heart failure; I50.9 Heart failure, unspecified; I48.91 Unspecified atrial fibrillation; W18.30XA Fall on same level, unspecified, initial encounter
CPT/HCPCS: 72100; 72170; 99283